=== PATIENT | male | born 1955 | race Caucasian/White ===

== ENCOUNTER 2017-05-15 11:16 | Day surgery (SDC) | payer MEDICAID, SELFPAY ==
--- NOTE | 2017-05-15 06:39 | RAD_ITS ---
STUDY: X-RAY - CERVICAL SPINE REASON FOR EXAM: Male, 61 years old. Facet injection C3, C6 TECHNIQUE: 2 intraoperative AP views view(s) of the cervical spine were obtained. COMPARISON: None FINDINGS: Intraoperative localization of C3 and C6 during facet block injection. Total fluoroscopy time was 3.67 seconds RAD/Cerv Spine 2 or 3 Views IMPRESSION: Intraoperative localization during facet injection C3 and C6 Electronically Signed: Cory Villegas MD, FACR at 8:22 EDT , Service support ,
[2017-05-15 11:35] VITALS: BP 141/83; PULSE 76; RESP 18; TEMP 36.4; O2SAT 99; BMI 34.9
[2017-05-15] MEDS: Triamcinolone Acetonide 40 MG/ML Vial (15:02)
[2017-05-15] MEDS: Bupivacaine 0.25% 30 ML Vial (15:02)
[2017-05-15 15:08] VITALS: BP 141/83; PULSE 68; RESP 16; TEMP 36.4; O2SAT 100
[2017-05-15 15:14] VITALS: BP 139/92; BP 141/83; PULSE 65; RESP 16; O2SAT 97
[2017-05-15 15:20] VITALS: BP 141/83; BP 155/94; PULSE 60; RESP 16; O2SAT 95
[2017-05-15 15:24] VITALS: BP 141/83; BP 157/94; PULSE 65; RESP 16; TEMP 36.7; O2SAT 96
[2017-05-15 15:44] VITALS: BP 141/83
== END 2017-05-15 15:45 | disposition home or self-care (01) ==
PROVIDERS: Family Provider Family Medicine; PCP Family Medicine; Visit Provider Anesthesiology Pain Medicine
DX: M47.812 Spondylosis without myelopathy or radiculopathy, cervical region (principal); M51.16 Intervertebral disc disorders with radiculopathy, lumbar region; M51.17 Intervertebral disc disorders with radiculopathy, lumbosacral region; E11.9 Type 2 diabetes mellitus without complications; I10 Essential (primary) hypertension; Z79.84 Long term (current) use of oral hypoglycemic drugs; Z79.899 Other long term (current) drug therapy; Z87.891 Personal history of nicotine dependence
CPT/HCPCS: 64491; 64492; 64490; 72040; J7120

== ENCOUNTER 2017-11-20 09:00 | Outpatient (RCR) | payer MEDICAID, SELFPAY ==
[2017-11-06 09:32] VITALS: BP 163/94; PULSE 73; RESP 18; TEMP 36.6; BMI 37.2
--- NOTE | 2017-11-06 12:28 | PCM.WC.HP ---
(1) Ulcer of right lower leg Status: Acute Current Visit: Yes Code(s): L97.919 - Non-pressure chronic ulcer of unspecified part of right lower leg with unspecified severity (2) Skin graft (allograft) (autograft) infection Status: Acute Current Visit: Yes Code(s): T86.822 - Skin graft (allograft) (autograft) infection History of Present Illness Date of Service: 11/06/17 Chief Complaint: Follow-up ulcer back of right knee History of Wound: 62-year-old white male patient of Dr. Townsend whom referred to us for an ulcer on the back of the right lateral knee. 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 He has been treating on his own with [id number] medication and not healing Past Medical History Past Medical History: Skin grafts lower body Allergies/Adverse Reactions: Allergies No Known Allergies Allergy (Verified 11/06/17 10:06) Home Medications: Ambulatory Orders Medication Instructions Recorded Meloxicam [Mobic] 15 mg PO DAILY 11/26/13 Fenofibrate,Micronized 160 mg PO DAILY 05/13/17 [Fenofibrate] Lisinopril [Prinivil] 10 mg PO DAILY 05/13/17 Metformin HCl 1,000 mg PO BID 05/13/17 Pioglitazone [Actos] 30 mg PO DAILY 05/13/17 Atorvastatin Calcium [Lipitor] 80 mg PO QHS 11/06/17 Cetirizine HCl [Zyrtec] 10 mg PO DAILY 11/06/17 Fluticasone 0.05% [Flonase Nasal 2 spray NASAL DAILY PRN 11/06/17 [place]] Joseph-3 Fatty Acids/Fish Oil [Fish 1 each PO DAILY 11/06/17 Oil 1,000 mg Capsule] Lives: Spouse/ Significant Other Smoking Status: Former smoker Tobacco Use: Non-smoker Alcohol: None Drugs: None Review of Systems Constitutional: Denies: Chills, Fever Eyes: Denies: Blurred vision, Drainage, Pain HEENT: Denies: Difficulty Hearing, Difficulty Swallowing, Sore Throat, Visual Changes Cardiovascular: Denies: Chest Pain, Palpitations, Syncope Respiratory: Denies: Cough, Shortness of Breath Gastrointestinal: Denies: Abdominal Pain, Nausea, Vomiting Genitourinary: Denies: Dysuria, Frequency Musculoskeletal: Denies: Joint Pain, Muscle pain Skin: Reports: - - Ulcer right lateral knee. Denies: Jaundice, Rash Neurological: Denies: Balance problems, Change in Speech, Difficulty swallowing, Focal weakness Psychiatric: Denies: Anxiety, Depression Endocrine: Denies: Change in Body Habitus Hematologic/ Lymphatic: Denies: Adenopathy - Physical Exam Vital Signs Temp Pulse Resp BP 98 F 73 18 163/94 H 11/06/17 09:32 11/06/17 09:32 11/06/17 09:32 11/06/17 09:32 General: Oriented x3, Cooperative, Well developed HEENT: Atraumatic, PERRLA Oral: Moist Mucosa Neck: Supple, No JVD Lungs: Clear to auscultation, Normal air movement Cardiovascular: Regular rate, Regular Rhythm Abdomen: Bowel Sounds Present, Soft, Non Tender, No Hepato-splenomegaly Extremities: No clubbing, No edema, - - Ulcer right lateral knee Wound Measurements and Assessment WC - Nurse 1 - General Ulcer Measurement Start: 11/06/17 09:29 Freq: Status: Active Protocol: Activity Type Activity Date Activity User E-Sign Co-Sign Detail Recorded Client Recorded Date Recorded By Document 11/06/17 09:32 [facility] [id number] 11/06/17 09:57 [facility] 11/06/17 09:32 Wound Center Nurse 1 [Ulcer Assessment Protocol: WC.WD.LOC] #1- RT POST KNEE -Combined with other wound No -Current Size (cm) - Length 1.4 -Current Size (cm) - Width 1.9 -Current Size (cm) - Depth 0.2 -Total Square Cm 2.66 -Date of Last Picture (Recall this 11/06/17 field) -Photo Taken Yes -Epithelialization None Present -Tunneling No -Undermining/Tunneling No -Exudate Amt None Present (0 %) -Wound Margin Thickened & Rolled Under -Granulation Amt Medium (34-66%) -Granulation Quality Red -Slough/Fibrin Yes -Necrosis Amt Small (1-33%) -Necrotic Tissue Type Adherent Slough -Structure Exposed N/A -Texture ([place]aya-wound Skin Appearance) Scarring -Moisture ([place]-wound Skin Appearance Assessed ) -Color ([place]-wound Skin Appearance) Erythema -Temperature ([place]-wound Skin No Abnormality Appearance) (Pt Warm) -Tenderness on Palpation ([place]-wound Yes Skin Appearance) -Ulcer Cleansing Rinsed/ Irrigated with Saline -Foul Odor after Cleansing No -Anesthetic Used 5% Lidocaine Gel [Edema Assessment] -Lower Limb Edema Present Yes -Right Calf (cm) 41 -Right Ankle (cm) 25.5 -Left Calf (cm) 43.2 -Left Ankle (cm) 24.9 WC - Nurse 2 - General Ulcer CM Notes Start: 11/06/17 09:29 Freq: Status: Active Protocol: Activity Type Activity Date Activity User E-Sign Co-Sign Detail Recorded Client Recorded Date Recorded By Document 11/06/17 10:43 MW [id number] 11/06/17 10:48 MW 11/06/17 10:43 Wound Center Nurse 2 [Procedure/Treatment] #1- RT POST KNEE -Time 10:46 -Correct Patient Yes -Correct Side, Site, Position Yes -Correct Procedure Yes -Procedure Performed Yes -Type of Procedure Debridement -Clinical Debridement Subcutaneous -Post Debridement Size (cm) - Length 1.5 -Post Debridement Size (cm) - Width 2.0 -Post Debridement Size (cm) - Depth 0.2 -Total Square Cm 3.00 -Wound/Ulcer Outcome Not Healed -Ulcer Cleansing Rinsed/ Irrigated with Saline -Foul Odor after Cleansing No -Bioengineered Tissue No -Bleeding Controlled with Pressure -Treatment Response Procedure Tolerated Well [See Physician Procedure note for Specifics] Pain Scale: 0-10 Numeric [Pain] -Is Patient Pain Free? Yes Musculoskeletal: No Tenderness to Palpation of Joints or Extremities Lymphatic: No Cervical, Supraclavicular, or Inguinal Adenopathy Neurological: Cranial nerves II-XII grossly intact, Neuro grossly intact Psych/Mental Status: Normal Affect, Appropriate, Alert and oriented to time, place, person, mood and affect Debridement Note Post-Debridement Measurements/Treatment WC - Nurse 2 - General Ulcer CM Notes Start: 11/06/17 09:29 Freq: Status: Active Protocol: Activity Type Activity Date Activity User E-Sign Co-Sign Detail Recorded Client Recorded Date Recorded By Document 11/06/17 10:43 MW [id number] 11/06/17 10:48 MW 11/06/17 10:43 Wound Center Nurse 2 #1- RT POST KNEE -Time 10:46 -Correct Patient Yes -Correct Side, Site, Position Yes -Correct Procedure Yes -Procedure Performed Yes -Type of Procedure Debridement -Clinical Debridement Subcutaneous -Post Debridement Size (cm) - Length 1.5 -Post Debridement Size (cm) - Width 2.0 -Post Debridement Size (cm) - Depth 0.2 -Total Square Cm 3.00 -Wound/Ulcer Outcome Not Healed -Ulcer Cleansing Rinsed/ Irrigated with Saline -Foul Odor after Cleansing No -Bioengineered Tissue No -Bleeding Controlled with Pressure -Treatment Response Procedure Tolerated Well Pain Scale: 0-10 Numeric Is Patient Pain Free? Yes Wound debrided: Knee ulcer Type of Debridement: Excisional debridement Anesthesia Used: 5% Lidocaine Gel Depth: Down to and including healthy tissue, in the subcutaneous layer Percentage of wound debrided: 100 Instrument Used: 5mm curette Tissue Removed: Slough and fibrin Severity: Limited To Skin Breakdown Amount of bleeding with debridement: Mild Bleeding Controlled with: Compression and gauze Patient tolerated procedure well Assessment/Plan Active Problems Ulcer of right lower leg (Acute) Skin graft (allograft) (autograft) infection (Acute) Assessment: Nonhealing ulcer posterior right knee. Diabetes type 2. Old healed skin grafts extremities Plan: Right leg and knee area with Hibiclens. Apply Liv moistened Adaptic gauze and dressing
--- NOTE | 2017-11-06 12:39 | HP.PCM_ITS ---
(1) Ulcer of right lower leg Status: Acute Current Visit: Yes Code(s): L97.919 - Non-pressure chronic ulcer of unspecified part of right lower leg with unspecified severity (2) Skin graft (allograft) (autograft) infection Status: Acute Current Visit: Yes Code(s): T86.822 - Skin graft (allograft) ( autograft) infection History of Present Illness Date of Service: 11/06/17 Chief Complaint: Follow-up ulcer back of right knee History of Wound: 62-year-old white male patient of Dr. Townsend whom referred to us for an ulcer on the back of the right lateral knee. Patient has had third- degree dempsey with grafting done in 1967 his total lower body and has scar tissue everywhere and developed an open ulcer on the right lateral posterior knee due to trauma. He has been treating on his own with oeyr-[id number] medication and not healing Past Medical History Past Medical History: Skin grafts lower body Allergies/Adverse Reactions: Allergies No Known Allergies Allergy (Verified 11/06/17 10:06) Home Medications: Ambulatory Orders Medication Instructions Recorded Meloxicam [Mobic] 15 mg PO DAILY 11/26/13 Fenofibrate,Micronized 160 mg PO DAILY 05/13/17 [Fenofibrate] Lisinopril [Prinivil] 10 mg PO DAILY 05/13/17 Metformin HCl 1,000 mg PO BID 05/13/17 Pioglitazone [Actos] 30 mg PO DAILY 05/13/17 Atorvastatin Calcium [Lipitor] 80 mg PO QHS 11/06/17 Cetirizine HCl [Zyrtec] 10 mg PO DAILY 11/06/17 Fluticasone 0.05% [Flonase Nasal 2 spray NASAL DAILY PRN 11/06/17 [place]] Milo-3 Fatty Acids/Fish Oil [Fish 1 each PO DAILY 11/06/17 Oil 1,000 mg Capsule] Lives: Spouse/ Significant Other Smoking Status: Former smoker Tobacco Use: Non-smoker Alcohol: None Drugs: None Review of Systems Constitutional: Denies: Chills, Fever Eyes: Denies: Blurred vision, Drainage, Pain HEENT: Denies: Difficulty Hearing, Difficulty Swallowing, Sore Throat, Visual Changes Cardiovascular: Denies: Chest Pain, Palpitations, Syncope Respiratory: Denies: Cough, Shortness of Breath Gastrointestinal: Denies: Abdominal Pain, Nausea, Vomiting Genitourinary: Denies: Dysuria, Frequency Musculoskeletal: Denies: Joint Pain, Muscle pain Skin: Reports: - - Ulcer right lateral knee. Denies: Jaundice, Rash Neurological: Denies: Balance problems, Change in Speech, Difficulty swallowing , Focal weakness Psychiatric: Denies: Anxiety, Depression Endocrine: Denies: Change in Body Habitus Hematologic/ Lymphatic: Denies: Adenopathy - Physical Exam Vital Signs Temp Pulse Resp BP 98 F 73 18 163/94 H 11/06/17 09:32 11/06/17 09:32 11/06/17 09:32 11/06/17 09:32 General: Oriented x3, Cooperative, Well developed HEENT: Atraumatic, PERRLA Oral: Moist Mucosa Neck: Supple, No JVD Lungs: Clear to auscultation, Normal air movement Cardiovascular: Regular rate, Regular Rhythm Abdomen: Bowel Sounds Present, Soft, Non Tender, No Hepato-splenomegaly Extremities: No clubbing, No edema, - - Ulcer right lateral knee Wound Measurements and Assessment WC - Nurse 1 - General Ulcer Measurement Start: 11/06/17 09:29 Freq: Status: Active Protocol: Activity Type Activity Date Activity User E-Sign Co-Sign Detail Recorded Client Recorded Date Recorded By Document 11/06/17 09:32 [facility] [id number] 11/06/17 09:57 [facility] 11/06/17 09:32 Wound Center Nurse 1 [Ulcer Assessment Protocol: WC.WD.LOC] #1- RT POST KNEE -Combined with other wound No -Current Size (cm) - Length 1.4 -Current Size (cm) - Width 1.9 -Current Size (cm) - Depth 0.2 -Total Square Cm 2.66 -Date of Last Picture (Recall this 11/06/17 field) -Photo Taken Yes -Epithelialization None Present -Tunneling No -Undermining/Tunneling No -Exudate Amt None Present (0 %) -Wound Margin Thickened & Rolled Under -Granulation Amt Medium (34-66%) -Granulation Quality Red -Slough/Fibrin Yes -Necrosis Amt Small (1-33%) -Necrotic Tissue Type Adherent Slough -Structure Exposed N/A -Texture ([place]-wound Skin Appearance) Scarring -Moisture ([place]-wound Skin Appearance Assessed ) -Color ([place]-wound Skin Appearance) Erythema -Temperature ([place]-wound Skin No Abnormality Appearance) (Pt Warm) -Tenderness on Palpation ([place]-wound Yes Skin Appearance) -Ulcer Cleansing Rinsed/ Irrigated with Saline -Foul Odor after Cleansing No -Anesthetic Used 5% Lidocaine Gel [Edema Assessment] -Lower Limb Edema Present Yes -Right Calf (cm) 41 -Right Ankle (cm) 25.5 -Left Calf (cm) 43.2 -Left Ankle (cm) 24.9 WC - Nurse 2 - General Ulcer CM Notes Start: 11/06/17 09:29 Freq: Status: Active Protocol: Activity Type Activity Date Activity User E-Sign Co-Sign Detail Recorded Client Recorded Date Recorded By Document 11/06/17 10:43 MW [id number] 11/06/17 10:48 MW 11/06/17 10:43 Wound Center Nurse 2 [Procedure/Treatment] #1- RT POST KNEE -Time 10:46 -Correct Patient Yes -Correct Side, Site, Position Yes -Correct Procedure Yes -Procedure Performed Yes -Type of Procedure Debridement -Clinical Debridement Subcutaneous -Post Debridement Size (cm) - Length 1.5 -Post Debridement Size (cm) - Width 2.0 -Post Debridement Size (cm) - Depth 0.2 -Total Square Cm 3.00 -Wound/Ulcer Outcome Not Healed -Ulcer Cleansing Rinsed/ Irrigated with Saline -Foul Odor after Cleansing No -Bioengineered Tissue No -Bleeding Controlled with Pressure -Treatment Response Procedure Tolerated Well [See Physician Procedure note for Specifics] Pain Scale: 0-10 Numeric [Pain] -Is Patient Pain Free? Yes Musculoskeletal: No Tenderness to Palpation of Joints or Extremities Lymphatic: No Cervical, Supraclavicular, or Inguinal Adenopathy Neurological: Cranial nerves II-XII grossly intact, Neuro grossly intact Psych/Mental Status: Normal Affect, Appropriate, Alert and oriented to time, place, person, mood and affect Debridement Note Post-Debridement Measurements/Treatment WC - Nurse 2 - General Ulcer CM Notes Start: 11/06/17 09:29 Freq: Status: Active Protocol: Activity Type Activity Date Activity User E-Sign Co-Sign Detail Recorded Client Recorded Date Recorded By Document 11/06/17 10:43 MW [id number] 11/06/17 10:48 MW 11/06/17 10:43 Wound Center Nurse 2 #1- RT POST KNEE -Time 10:46 -Correct Patient Yes -Correct Side, Site, Position Yes -Correct Procedure Yes -Procedure Performed Yes -Type of Procedure Debridement -Clinical Debridement Subcutaneous -Post Debridement Size (cm) - Length 1.5 -Post Debridement Size (cm) - Width 2.0 -Post Debridement Size (cm) - Depth 0.2 -Total Square Cm 3.00 -Wound/Ulcer Outcome Not Healed -Ulcer Cleansing Rinsed/ Irrigated with Saline -Foul Odor after Cleansing No -Bioengineered Tissue No -Bleeding Controlled with Pressure -Treatment Response Procedure Tolerated Well Pain Scale: 0-10 Numeric Is Patient Pain Free? Yes Wound debrided: Knee ulcer Type of Debridement: Excisional debridement Anesthesia Used: 5% Lidocaine Gel Depth: Down to and including healthy tissue, in the subcutaneous layer Percentage of wound debrided: 100 Instrument Used: 5mm curette Tissue Removed: Slough and fibrin Severity: Limited To Skin Breakdown Amount of bleeding with debridement: Mild Bleeding Controlled with: Compression and gauze Patient tolerated procedure well Assessment/Plan Active Problems Ulcer of right lower leg (Acute) Skin graft (allograft) (autograft) infection (Acute) Assessment: Nonhealing ulcer posterior right knee. Diabetes type 2. Old healed skin grafts extremities Plan: Right leg and knee area with Hibiclens. Apply Liv moistened Adaptic gauze and dressing
[2017-11-13 09:44] VITALS: BP 142/85; PULSE 78; RESP 18; TEMP 36.8; BMI 37.2
--- NOTE | 2017-11-13 10:05 | PCM.WC.PN ---
(1) Ulcer of right lower leg Status: Acute Current Visit: Yes Code(s): L97.919 - Non-pressure chronic ulcer of unspecified part of right lower leg with unspecified severity (2) Skin graft (allograft) (autograft) infection Status: Acute Current Visit: Yes Code(s): T86.822 - Skin graft (allograft) (autograft) infection Type of Wound Date of Service: 11/13/17 Chief Complaint: Follow-up ulcer back of right knee History of Wound: 62-year-old white male patient of Dr. Townsend whom referred to us for an ulcer on the back of the right lateral knee. Patient has had third-degree dempsey with grafting done in 1968 his total lower body and has scar tissue everywhere and developed an open ulcer on the right lateral posterior knee due to trauma. He has been treating on his own with asjf-umz-viufpop medication and not healing Progress of Wound: Cultures of the ulcer came back positive for MRSA patient was started on Bactrim and has started 2 doses. Ulcer is slightly smaller clean. We will continue using the Promogran and follow-up in a week - Physical Exam Vital Signs Temp Pulse Resp BP 98.2 F 78 18 142/85 H 11/13/17 09:44 11/13/17 09:44 11/13/17 09:44 11/13/17 09:44 General: Oriented x3, Cooperative, Well developed HEENT: Atraumatic, PERRLA Oral: Moist Mucosa Neck: Supple, No JVD Lungs: Clear to auscultation, Normal air movement Cardiovascular: Regular rate, Regular Rhythm Abdomen: Bowel Sounds Present, Soft, Non Tender, No Hepato-splenomegaly Extremities: No clubbing, No edema, - - Right posterior knee ulcer Skin: Ulcer/ Wound Wound Measurements and Assessment WC - Nurse 1 - General Ulcer Measurement Start: 11/06/17 09:29 Freq: Status: Active Protocol: Activity Type Activity Date Activity User E-Sign Co-Sign Detail Recorded Client Recorded Date Recorded By Document 11/13/17 09:44 [id number] 11/13/17 09:47 11/13/17 09:44 Wound Center Nurse 1 [Ulcer Assessment] #1- RT POST KNEE -Combined with other wound No -Current Size (cm) - Length 2.1 -Current Size (cm) - Width 1.7 -Current Size (cm) - Depth 0.1 -Total Square Cm 3.57 -Photo Taken No -Epithelialization Small 1-33% -Tunneling No -Undermining/Tunneling No -Circular Undermining No -Classification - Thickness Full Thickness without Exposed Support Structure -Exudate Amt Small (1-33%) -Exudate Type Serosanguineous -Wound Margin Distinct, Outline Attached -Granulation Amt Large (67-100%) -Granulation Quality Hailey -Slough/Fibrin Yes -Necrosis Amt Small (1-33%) -Necrotic Tissue Type Adherent Slough -Structure Exposed Fascia Fat Layer Exposed -Texture ([place]-wound Skin Appearance) Localized Edema Scarring -Moisture ([place]-wound Skin Appearance No Abnormality ) -Color ([place]-wound Skin Appearance) Erythema -Temperature ([place]-wound Skin No Abnormality Appearance) (Pt Warm) -Tenderness on Palpation ([place]-wound No Skin Appearance) -Ulcer Cleansing Rinsed/ Irrigated with Saline -Foul Odor after Cleansing No -Anesthetic Used 5% Lidocaine Gel [Edema Assessment] -Lower Limb Edema Present Yes -Right Calf (cm) 40.0 -Right Ankle (cm) 24.5 WC - Nurse 2 - General Ulcer CM Notes Start: 11/06/17 09:29 Freq: Status: Active Protocol: Activity Type Activity Date Activity User E-Sign Co-Sign Detail Recorded Client Recorded Date Recorded By Document 11/13/17 10:00 MW [id number] 11/13/17 10:02 MW 11/13/17 10:00 Wound Center Nurse 2 [Procedure/Treatment] #1- RT POST KNEE -Time 10:00 -Correct Patient Yes -Correct Side, Site, Position Yes -Correct Procedure Yes -Procedure Performed Yes -Type of Procedure Debridement -Clinical Debridement Subcutaneous -Post Debridement Size (cm) - Length 1.4 -Post Debridement Size (cm) - Width 1.5 -Post Debridement Size (cm) - Depth 0.2 -Total Square Cm 2.10 -Wound/Ulcer Outcome Not Healed -Ulcer Cleansing Rinsed/ Irrigated with Saline -Foul Odor after Cleansing No -Bioengineered Tissue No -Bleeding Controlled with Pressure -Treatment Response Procedure Tolerated Well [See Physician Procedure note for Specifics] Pain Scale: 0-10 Numeric [Pain] -Is Patient Pain Free? Yes Musculoskeletal: No Tenderness to Palpation of Joints or Extremities Lymphatic: No Cervical, Supraclavicular, or Inguinal Adenopathy Neurological: Cranial nerves II-XII grossly intact, Neuro grossly intact Psych/Mental Status: Normal Affect, Appropriate, Alert and oriented to time, place, person, mood and affect Debridement Note Post-Debridement Measurements/Treatment WC - Nurse 2 - General Ulcer CM Notes Start: 11/06/17 09:29 Freq: Status: Active Protocol: Activity Type Activity Date Activity User E-Sign Co-Sign Detail Recorded Client Recorded Date Recorded By Document 11/06/17 10:43 MW [id number] 11/06/17 10:48 MW Document 11/13/17 10:00 MW [id number] 11/13/17 10:02 MW 11/06/17 11/13/17 10:43 10:00 Wound Center Nurse 2 #1- RT POST KNEE -Time 10:46 10:00 -Correct Patient Yes Yes -Correct Side, Site, Position Yes Yes -Correct Procedure Yes Yes -Procedure Performed Yes Yes -Type of Procedure Debridement Debridement -Clinical Debridement Subcutaneous Subcutaneous -Post Debridement Size (cm) - Length 1.5 1.4 -Post Debridement Size (cm) - Width 2.0 1.5 -Post Debridement Size (cm) - Depth 0.2 0.2 -Total Square Cm 3.00 2.10 -Wound/Ulcer Outcome Not Healed Not Healed -Ulcer Cleansing Rinsed/ Rinsed/ Irrigated with Irrigated with Saline Saline -Foul Odor after Cleansing No No -Bioengineered Tissue No No -Bleeding Controlled with Pressure Pressure -Treatment Response Procedure Procedure Tolerated Well Tolerated Well Pain Scale: 0-10 Numeric Is Patient Pain Free? Yes Yes Wound debrided: Posterior knee ulcer Type of Debridement: Excisional debridement Anesthesia Used: 5% Lidocaine Gel Depth: Down to and including healthy tissue, in the subcutaneous layer Instrument Used: 5mm curette Tissue Removed: Fibrin Severity: Limited To Skin Breakdown Amount of bleeding with debridement: Mild Bleeding Controlled with: Compression and gauze Assessment/Plan Active Problems Ulcer of right lower leg (Acute) Skin graft (allograft) (autograft) infection (Acute) Assessment: Nonhealing ulcer posterior right knee. Diabetes type 2. Old healed skin grafts extremities Plan: Right leg and knee area with Hibiclens. Apply Liv moistened Adaptic gauze and dressing. Follow up 1 week
--- NOTE | 2017-11-13 10:08 | PN.PCM_ITS ---
(1) Ulcer of right lower leg Status: Acute Current Visit: Yes Code(s): L97.919 - Non-pressure chronic ulcer of unspecified part of right lower leg with unspecified severity (2) Skin graft (allograft) (autograft) infection Status: Acute Current Visit: Yes Code(s): T86.822 - Skin graft (allograft) ( autograft) infection Type of Wound Date of Service: 11/13/17 Chief Complaint: Follow-up ulcer back of right knee History of Wound: 62-year-old white male patient of Dr. Townsend whom referred to us for an ulcer on the back of the right lateral knee. Patient has had third- degree dempsey with grafting done in 1968 his total lower body and has scar tissue everywhere and developed an open ulcer on the right lateral posterior knee due to trauma. He has been treating on his own with [id number] medication and not healing Progress of Wound: Cultures of the ulcer came back positive for MRSA patient was started on Bactrim and has started 2 doses. Ulcer is slightly smaller clean. We will continue using the Promogran and follow-up in a week - Physical Exam Vital Signs Temp Pulse Resp BP 98.2 F 78 18 142/85 H 11/13/17 09:44 11/13/17 09:44 11/13/17 09:44 11/13/17 09:44 General: Oriented x3, Cooperative, Well developed HEENT: Atraumatic, PERRLA Oral: Moist Mucosa Neck: Supple, No JVD Lungs: Clear to auscultation, Normal air movement Cardiovascular: Regular rate, Regular Rhythm Abdomen: Bowel Sounds Present, Soft, Non Tender, No Hepato-splenomegaly Extremities: No clubbing, No edema, - - Right posterior knee ulcer Skin: Ulcer/ Wound Wound Measurements and Assessment WC - Nurse 1 - General Ulcer Measurement Start: 11/06/17 09:29 Freq: Status: Active Protocol: Activity Type Activity Date Activity User E-Sign Co-Sign Detail Recorded Client Recorded Date Recorded By Document 11/13/17 09:44 [id number] 11/13/17 09:47 11/13/17 09:44 Wound Center Nurse 1 [Ulcer Assessment] #1- RT POST KNEE -Combined with other wound No -Current Size (cm) - Length 2.1 -Current Size (cm) - Width 1.7 -Current Size (cm) - Depth 0.1 -Total Square Cm 3.57 -Photo Taken No -Epithelialization Small 1-33% -Tunneling No -Undermining/Tunneling No -Circular Undermining No -Classification - Thickness Full Thickness without Exposed Support Structure -Exudate Amt Small (1-33%) -Exudate Type Serosanguineous -Wound Margin Distinct, Outline Attached -Granulation Amt Large (67-100%) -Granulation Quality [place] -Slough/Fibrin Yes -Necrosis Amt Small (1-33%) -Necrotic Tissue Type Adherent Slough -Structure Exposed Fascia Fat Layer Exposed -Texture ([place]-wound Skin Appearance) Localized Edema Scarring -Moisture ([place]-wound Skin Appearance No Abnormality ) -Color ([place]-wound Skin Appearance) Erythema -Temperature ([place]-wound Skin No Abnormality Appearance) (Pt Warm) -Tenderness on Palpation ([place]-wound No Skin Appearance) -Ulcer Cleansing Rinsed/ Irrigated with Saline -Foul Odor after Cleansing No -Anesthetic Used 5% Lidocaine Gel [Edema Assessment] -Lower Limb Edema Present Yes -Right Calf (cm) 40.0 -Right Ankle (cm) 24.5 WC - Nurse 2 - General Ulcer CM Notes Start: 11/06/17 09:29 Freq: Status: Active Protocol: Activity Type Activity Date Activity User E-Sign Co-Sign Detail Recorded Client Recorded Date Recorded By Document 11/13/17 10:00 MW [id number] 11/13/17 10:02 MW 11/13/17 10:00 Wound Center Nurse 2 [Procedure/Treatment] #1- RT POST KNEE -Time 10:00 -Correct Patient Yes -Correct Side, Site, Position Yes -Correct Procedure Yes -Procedure Performed Yes -Type of Procedure Debridement -Clinical Debridement Subcutaneous -Post Debridement Size (cm) - Length 1.4 -Post Debridement Size (cm) - Width 1.5 -Post Debridement Size (cm) - Depth 0.2 -Total Square Cm 2.10 -Wound/Ulcer Outcome Not Healed -Ulcer Cleansing Rinsed/ Irrigated with Saline -Foul Odor after Cleansing No -Bioengineered Tissue No -Bleeding Controlled with Pressure -Treatment Response Procedure Tolerated Well [See Physician Procedure note for Specifics] Pain Scale: 0-10 Numeric [Pain] -Is Patient Pain Free? Yes Musculoskeletal: No Tenderness to Palpation of Joints or Extremities Lymphatic: No Cervical, Supraclavicular, or Inguinal Adenopathy Neurological: Cranial nerves II-XII grossly intact, Neuro grossly intact Psych/Mental Status: Normal Affect, Appropriate, Alert and oriented to time, place, person, mood and affect Debridement Note Post-Debridement Measurements/Treatment WC - Nurse 2 - General Ulcer CM Notes Start: 11/06/17 09:29 Freq: Status: Active Protocol: Activity Type Activity Date Activity User E-Sign Co-Sign Detail Recorded Client Recorded Date Recorded By Document 11/06/17 10:43 MW [id number] 11/06/17 10:48 MW Document 11/13/17 10:00 MW [id number] 11/13/17 10:02 MW 11/06/17 11/13/17 10:43 10:00 Wound Center Nurse 2 #1- RT POST KNEE -Time 10:46 10:00 -Correct Patient Yes Yes -Correct Side, Site, Position Yes Yes -Correct Procedure Yes Yes -Procedure Performed Yes Yes -Type of Procedure Debridement Debridement -Clinical Debridement Subcutaneous Subcutaneous -Post Debridement Size (cm) - Length 1.5 1.4 -Post Debridement Size (cm) - Width 2.0 1.5 -Post Debridement Size (cm) - Depth 0.2 0.2 -Total Square Cm 3.00 2.10 -Wound/Ulcer Outcome Not Healed Not Healed -Ulcer Cleansing Rinsed/ Rinsed/ Irrigated with Irrigated with Saline Saline -Foul Odor after Cleansing No No -Bioengineered Tissue No No -Bleeding Controlled with Pressure Pressure -Treatment Response Procedure Procedure Tolerated Well Tolerated Well Pain Scale: 0-10 Numeric Is Patient Pain Free? Yes Yes Wound debrided: Posterior knee ulcer Type of Debridement: Excisional debridement Anesthesia Used: 5% Lidocaine Gel Depth: Down to and including healthy tissue, in the subcutaneous layer Instrument Used: 5mm curette Tissue Removed: Fibrin Severity: Limited To Skin Breakdown Amount of bleeding with debridement: Mild Bleeding Controlled with: Compression and gauze Assessment/Plan Active Problems Ulcer of right lower leg (Acute) Skin graft (allograft) (autograft) infection (Acute) Assessment: Nonhealing ulcer posterior right knee. Diabetes type 2. Old healed skin grafts extremities Plan: Right leg and knee area with Hibiclens. Apply Liv moistened Adaptic gauze and dressing. Follow up 1 week
[2017-11-20 09:03] VITALS: BP 149/79; PULSE 80; RESP 18; TEMP 36.8; BMI 37.2
--- NOTE | 2017-11-20 09:39 | PCM.WC.PN ---
(1) Ulcer of right lower leg Status: Acute Current Visit: Yes Code(s): L97.919 - Non-pressure chronic ulcer of unspecified part of right lower leg with unspecified severity (2) Skin graft (allograft) (autograft) infection Status: Acute Current Visit: Yes Code(s): T86.822 - Skin graft (allograft) (autograft) infection Type of Wound Date of Service: 11/20/17 Chief Complaint: Follow-up ulcer back of right knee History of Wound: 62-year-old white male patient of Dr. Townsend whom referred to us for an ulcer on the back of the right lateral knee. Patient has had third-degree dempsey with grafting done in 1968 his total lower body and has scar tissue everywhere and developed an open ulcer on the right lateral posterior knee due to trauma. He has been treating on his own with [id number] medication and not healing Progress of Wound: Cultures of the ulcer came back positive for MRSA patient was started on Bactrim and has started . Ulcer is slightly larger but clean. We will continue using the Promogran and follow-up in a week. Applying for epi fix to area it is in the scar tissue area and not healing quickly. - Physical Exam Vital Signs Temp Pulse Resp BP 98.2 F 80 18 149/79 H 11/20/17 09:03 11/20/17 09:03 11/20/17 09:03 11/20/17 09:03 General: Oriented x3, Cooperative, Well developed HEENT: Atraumatic, PERRLA Oral: Moist Mucosa Neck: Supple, No JVD Lungs: Clear to auscultation, Normal air movement Cardiovascular: Regular rate, Regular Rhythm Abdomen: Bowel Sounds Present, Soft, Non Tender, No Hepato-splenomegaly Extremities: No clubbing, No edema, - - Posterior knee ulcer Skin: Ulcer/ Wound Wound Measurements and Assessment WC - Nurse 1 - General Ulcer Measurement Start: 11/06/17 09:29 Freq: Status: Active Protocol: Activity Type Activity Date Activity User E-Sign Co-Sign Detail Recorded Client Recorded Date Recorded By Document 11/20/17 09:03 [id number] 11/20/17 09:13 11/20/17 09:03 Wound Center Nurse 1 [Ulcer Assessment] #1- RT POST KNEE -Combined with other wound No -Current Size (cm) - Length 1.4 -Current Size (cm) - Width 2.0 -Current Size (cm) - Depth 0.1 -Total Square Cm 2.80 -Photo Taken No -Epithelialization Small 1-33% -Tunneling No -Undermining/Tunneling No -Circular Undermining No -Classification - Thickness Full Thickness without Exposed Support Structure -Exudate Amt Small (1-33%) -Exudate Type Serosanguineous -Wound Margin Distinct, Outline Attached -Granulation Amt Large (67-100%) -Granulation Quality [place] -Slough/Fibrin Yes -Necrosis Amt Small (1-33%) -Necrotic Tissue Type Adherent Slough -Structure Exposed Fascia Fat Layer Exposed -Texture ([place]-wound Skin Appearance) Friable Localized Edema Scarring -Moisture ([place]-wound Skin Appearance No Abnormality ) -Color ([place]-wound Skin Appearance) Erythema -Temperature ([place]-wound Skin No Abnormality Appearance) (Pt Warm) -Tenderness on Palpation ([place]-wound No Skin Appearance) -Ulcer Cleansing Rinsed/ Irrigated with Saline -Foul Odor after Cleansing No -Anesthetic Used 5% Lidocaine Gel [Edema Assessment] -Lower Limb Edema Present Yes -Right Calf (cm) 40.0 -Right Ankle (cm) 25.0 WC - Nurse 2 - General Ulcer CM Notes Start: 11/06/17 09:29 Freq: Status: Active Protocol: Activity Type Activity Date Activity User E-Sign Co-Sign Detail Recorded Client Recorded Date Recorded By Document 11/20/17 09:17 MW [id number] 11/20/17 09:20 MW 11/20/17 09:17 Wound Center Nurse 2 [Procedure/Treatment] #1- RT POST KNEE -Time 09:18 -Correct Patient Yes -Correct Side, Site, Position Yes -Correct Procedure Yes -Procedure Performed Yes -Type of Procedure Debridement -Clinical Debridement Subcutaneous -Post Debridement Size (cm) - Length 1.5 -Post Debridement Size (cm) - Width 0.6 -Post Debridement Size (cm) - Depth 0.2 -Total Square Cm 0.90 -Wound/Ulcer Outcome Not Healed -Ulcer Cleansing Rinsed/ Irrigated with Saline -Foul Odor after Cleansing No -Bioengineered Tissue No -Bleeding Controlled with Pressure -Treatment Response Procedure Tolerated Well [See Physician Procedure note for Specifics] Pain Scale: 0-10 Numeric [Pain] -Is Patient Pain Free? Yes Musculoskeletal: No Tenderness to Palpation of Joints or Extremities Lymphatic: No Cervical, Supraclavicular, or Inguinal Adenopathy Neurological: Cranial nerves II-XII grossly intact, Neuro grossly intact Psych/Mental Status: Normal Affect, Appropriate, Alert and oriented to time, place, person, mood and affect Debridement Note Post-Debridement Measurements/Treatment WC - Nurse 2 - General Ulcer CM Notes Start: 11/06/17 09:29 Freq: Status: Active Protocol: Activity Type Activity Date Activity User E-Sign Co-Sign Detail Recorded Client Recorded Date Recorded By Document 11/06/17 10:43 MW [id number] 11/06/17 10:48 MW Document 11/13/17 10:00 MW [id number] 11/13/17 10:02 MW Document 11/20/17 09:17 MW [id number] 11/20/17 09:20 MW 11/06/17 11/13/17 11/20/17 10:43 10:00 09:17 Wound Center Nurse 2 #1- RT POST KNEE -Time 10:46 10:00 09:18 -Correct Patient Yes Yes Yes -Correct Side, Site, Position Yes Yes Yes -Correct Procedure Yes Yes Yes -Procedure Performed Yes Yes Yes -Type of Procedure Debridement Debridement Debridement -Clinical Debridement Subcutaneous Subcutaneous Subcutaneous -Post Debridement Size (cm) - Length 1.5 1.4 1.5 -Post Debridement Size (cm) - Width 2.0 1.5 0.6 -Post Debridement Size (cm) - Depth 0.2 0.2 0.2 -Total Square Cm 3.00 2.10 0.90 -Wound/Ulcer Outcome Not Healed Not Healed Not Healed -Ulcer Cleansing Rinsed/ Rinsed/ Rinsed/ Irrigated with Irrigated with Irrigated with Saline Saline Saline -Foul Odor after Cleansing No No No -Bioengineered Tissue No No No -Bleeding Controlled with Pressure Pressure Pressure -Treatment Response Procedure Procedure Procedure Tolerated Well Tolerated Well Tolerated Well Pain Scale: 0-10 Numeric Is Patient Pain Free? Yes Yes Yes Wound debrided: Right posterior knee ulcer Type of Debridement: Excisional debridement Anesthesia Used: 5% Lidocaine Gel Depth: Down to and including healthy tissue, in the subcutaneous layer Percentage of wound debrided: 100 Instrument Used: 5mm curette Tissue Removed: Fibrin Severity: Limited To Skin Breakdown Amount of bleeding with debridement: Mild Bleeding Controlled with: Compression and gauze Patient tolerated procedure well Assessment/Plan Active Problems Ulcer of right lower leg (Acute) Skin graft (allograft) (autograft) infection (Acute) Assessment: Nonhealing ulcer posterior right knee. Diabetes type 2. Old healed skin grafts extremities Plan: Right leg and knee area with Hibiclens. Apply Liv moistened Adaptic gauze and dressing. Follow up 1 week
--- NOTE | 2017-11-20 09:42 | PN.PCM_ITS ---
(1) Ulcer of right lower leg Status: Acute Current Visit: Yes Code(s): L97.919 - Non-pressure chronic ulcer of unspecified part of right lower leg with unspecified severity (2) Skin graft (allograft) (autograft) infection Status: Acute Current Visit: Yes Code(s): T86.822 - Skin graft (allograft) ( autograft) infection Type of Wound Date of Service: 11/20/17 Chief Complaint: Follow-up ulcer back of right knee History of Wound: 62-year-old white male patient of Dr. Townsend whom referred to us for an ulcer on the back of the right lateral knee. Patient has had third- degree dempsey with grafting done in 1968 his total lower body and has scar tissue everywhere and developed an open ulcer on the right lateral posterior knee due to trauma. He has been treating on his own with [id number] medication and not healing Progress of Wound: Cultures of the ulcer came back positive for MRSA patient was started on Bactrim and has started . Ulcer is slightly larger but clean. We will continue using the Promogran and follow-up in a week. Applying for epi fix to area it is in the scar tissue area and not healing quickly. - Physical Exam Vital Signs Temp Pulse Resp BP 98.2 F 80 18 149/79 H 11/20/17 09:03 11/20/17 09:03 11/20/17 09:03 11/20/17 09:03 General: Oriented x3, Cooperative, Well developed HEENT: Atraumatic, PERRLA Oral: Moist Mucosa Neck: Supple, No JVD Lungs: Clear to auscultation, Normal air movement Cardiovascular: Regular rate, Regular Rhythm Abdomen: Bowel Sounds Present, Soft, Non Tender, No Hepato-splenomegaly Extremities: No clubbing, No edema, - - Posterior knee ulcer Skin: Ulcer/ Wound Wound Measurements and Assessment WC - Nurse 1 - General Ulcer Measurement Start: 11/06/17 09:29 Freq: Status: Active Protocol: Activity Type Activity Date Activity User E-Sign Co-Sign Detail Recorded Client Recorded Date Recorded By Document 11/20/17 09:03 [id number] 11/20/17 09:13 11/20/17 09:03 Wound Center Nurse 1 [Ulcer Assessment] #1- RT POST KNEE -Combined with other wound No -Current Size (cm) - Length 1.4 -Current Size (cm) - Width 2.0 -Current Size (cm) - Depth 0.1 -Total Square Cm 2.80 -Photo Taken No -Epithelialization Small 1-33% -Tunneling No -Undermining/Tunneling No -Circular Undermining No -Classification - Thickness Full Thickness without Exposed Support Structure -Exudate Amt Small (1-33%) -Exudate Type Serosanguineous -Wound Margin Distinct, Outline Attached -Granulation Amt Large (67-100%) -Granulation Quality [place] -Slough/Fibrin Yes -Necrosis Amt Small (1-33%) -Necrotic Tissue Type Adherent Slough -Structure Exposed Fascia Fat Layer Exposed -Texture ([place]-wound Skin Appearance) Friable Localized Edema Scarring -Moisture ([place]-wound Skin Appearance No Abnormality ) -Color ([place]-wound Skin Appearance) Erythema -Temperature ([place]-wound Skin No Abnormality Appearance) (Pt Warm) -Tenderness on Palpation ([place]-wound No Skin Appearance) -Ulcer Cleansing Rinsed/ Irrigated with Saline -Foul Odor after Cleansing No -Anesthetic Used 5% Lidocaine Gel [Edema Assessment] -Lower Limb Edema Present Yes -Right Calf (cm) 40.0 -Right Ankle (cm) 25.0 WC - Nurse 2 - General Ulcer CM Notes Start: 11/06/17 09:29 Freq: Status: Active Protocol: Activity Type Activity Date Activity User E-Sign Co-Sign Detail Recorded Client Recorded Date Recorded By Document 11/20/17 09:17 MW [id number] 11/20/17 09:20 MW 11/20/17 09:17 Wound Center Nurse 2 [Procedure/Treatment] #1- RT POST KNEE -Time 09:18 -Correct Patient Yes -Correct Side, Site, Position Yes -Correct Procedure Yes -Procedure Performed Yes -Type of Procedure Debridement -Clinical Debridement Subcutaneous -Post Debridement Size (cm) - Length 1.5 -Post Debridement Size (cm) - Width 0.6 -Post Debridement Size (cm) - Depth 0.2 -Total Square Cm 0.90 -Wound/Ulcer Outcome Not Healed -Ulcer Cleansing Rinsed/ Irrigated with Saline -Foul Odor after Cleansing No -Bioengineered Tissue No -Bleeding Controlled with Pressure -Treatment Response Procedure Tolerated Well [See Physician Procedure note for Specifics] Pain Scale: 0-10 Numeric [Pain] -Is Patient Pain Free? Yes Musculoskeletal: No Tenderness to Palpation of Joints or Extremities Lymphatic: No Cervical, Supraclavicular, or Inguinal Adenopathy Neurological: Cranial nerves II-XII grossly intact, Neuro grossly intact Psych/Mental Status: Normal Affect, Appropriate, Alert and oriented to time, place, person, mood and affect Debridement Note Post-Debridement Measurements/Treatment WC - Nurse 2 - General Ulcer CM Notes Start: 11/06/17 09:29 Freq: Status: Active Protocol: Activity Type Activity Date Activity User E-Sign Co-Sign Detail Recorded Client Recorded Date Recorded By Document 11/06/17 10:43 MW [id number] 11/06/17 10:48 MW Document 11/13/17 10:00 MW [id number] 11/13/17 10:02 MW Document 11/20/17 09:17 MW [id number] 11/20/17 09:20 MW 11/06/17 11/13/17 11/20/17 10:43 10:00 09:17 Wound Center Nurse 2 #1- RT POST KNEE -Time 10:46 10:00 09:18 -Correct Patient Yes Yes Yes -Correct Side, Site, Position Yes Yes Yes -Correct Procedure Yes Yes Yes -Procedure Performed Yes Yes Yes -Type of Procedure Debridement Debridement Debridement -Clinical Debridement Subcutaneous Subcutaneous Subcutaneous -Post Debridement Size (cm) - Length 1.5 1.4 1.5 -Post Debridement Size (cm) - Width 2.0 1.5 0.6 -Post Debridement Size (cm) - Depth 0.2 0.2 0.2 -Total Square Cm 3.00 2.10 0.90 -Wound/Ulcer Outcome Not Healed Not Healed Not Healed -Ulcer Cleansing Rinsed/ Rinsed/ Rinsed/ Irrigated with Irrigated with Irrigated with Saline Saline Saline -Foul Odor after Cleansing No No No -Bioengineered Tissue No No No -Bleeding Controlled with Pressure Pressure Pressure -Treatment Response Procedure Procedure Procedure Tolerated Well Tolerated Well Tolerated Well Pain Scale: 0-10 Numeric Is Patient Pain Free? Yes Yes Yes Wound debrided: Right posterior knee ulcer Type of Debridement: Excisional debridement Anesthesia Used: 5% Lidocaine Gel Depth: Down to and including healthy tissue, in the subcutaneous layer Percentage of wound debrided: 100 Instrument Used: 5mm curette Tissue Removed: Fibrin Severity: Limited To Skin Breakdown Amount of bleeding with debridement: Mild Bleeding Controlled with: Compression and gauze Patient tolerated procedure well Assessment/Plan Active Problems Ulcer of right lower leg (Acute) Skin graft (allograft) (autograft) infection (Acute) Assessment: Nonhealing ulcer posterior right knee. Diabetes type 2. Old healed skin grafts extremities Plan: Right leg and knee area with Hibiclens. Apply Liv moistened Adaptic gauze and dressing. Follow up 1 week
== END 2017-11-25 23:59 ==
LOC: WC 09:00
PROVIDERS: Family Provider Family Medicine; PCP Family Medicine; Visit Provider Nurse Practitioner
DX: T86.822 Skin graft (allograft) (autograft) infection (principal); Z79.899 Other long term (current) drug therapy; Z87.891 Personal history of nicotine dependence; L97.811 Non-pressure chronic ulcer of other part of right lower leg limited to breakdown of skin; E11.622 Type 2 diabetes mellitus with other skin ulcer; B95.62 Methicillin resistant Staphylococcus aureus infection as the cause of diseases classified elsewhere
CPT/HCPCS: 11042; 87070; 87075; 87077; 87186; 87205; 99203; G0463

== ENCOUNTER 2017-12-17 10:15 | Outpatient (RCR) | payer MEDICAID, SELFPAY ==
[2017-11-26 01:07] VITALS: BP 163/94; PULSE 80; RESP 18; TEMP 36.8; BMI 37.2
[2017-11-27 09:09] VITALS: BP 160/87; PULSE 85; RESP 16; TEMP 36.2; BMI 37.2
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
[2017-12-11 09:45] VITALS: BP 159/98; PULSE 73; RESP 18; TEMP 36.1; BMI 37.2
[2017-12-17 09:50] VITALS: BP 146/78; PULSE 90; RESP 18; TEMP 35.8; BMI 37.2
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
== END 2017-12-26 23:59 ==
LOC: WC 10:15
PROVIDERS: Family Provider Family Medicine; PCP Family Medicine; Visit Provider Internal Medicine
DX: T86.822 Skin graft (allograft) (autograft) infection (principal); L97.811 Non-pressure chronic ulcer of other part of right lower leg limited to breakdown of skin; Z87.891 Personal history of nicotine dependence; Z79.899 Other long term (current) drug therapy; E11.622 Type 2 diabetes mellitus with other skin ulcer
CPT/HCPCS: 15271; 99213; Q4131; G0463

== ENCOUNTER 2018-01-21 08:30 | Outpatient (RCR) | payer MEDICAID, SELFPAY ==
[2017-12-27 00:55] VITALS: BP 163/94; PULSE 90; RESP 18; TEMP 35.8; BMI 37.2
[2017-12-31 09:28] VITALS: BP 144/88; PULSE 78; RESP 18; TEMP 35.8; BMI 37.2
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
[2018-01-14 10:11] VITALS: BP 147/86; PULSE 86; RESP 20; TEMP 36.4; BMI 37.2
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
[2018-01-21 08:38] VITALS: BP 165/88; PULSE 75; RESP 20; TEMP 36.2; BMI 37.2
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
== END 2018-01-25 23:59 ==
LOC: WC 08:30
PROVIDERS: Family Provider Family Medicine; PCP Family Medicine; Visit Provider Internal Medicine
DX: T86.822 Skin graft (allograft) (autograft) infection (principal); L97.812 Non-pressure chronic ulcer of other part of right lower leg with fat layer exposed; E11.622 Type 2 diabetes mellitus with other skin ulcer
CPT/HCPCS: 15271; Q4131

== ENCOUNTER 2018-02-18 09:00 | Outpatient (RCR) | payer MEDICAID, SELFPAY ==
[2018-01-26 00:45] VITALS: BP 163/94; PULSE 75; RESP 20; TEMP 36.2; BMI 37.2
[2018-01-28 09:38] VITALS: BP 153/81; PULSE 86; RESP 18; TEMP 37.1; BMI 37.2
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
[2018-02-04 08:38] VITALS: BP 156/91; PULSE 82; RESP 16; TEMP 36.9; BMI 37.2
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
[2018-02-11 09:36] VITALS: BP 162/90; PULSE 91; RESP 18; TEMP 36.6; BMI 37.2
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
[2018-02-18 09:10] VITALS: BP 157/75; PULSE 66; RESP 18; TEMP 35.9; BMI 37.2
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
== END 2018-02-25 23:59 ==
LOC: WC 09:00
PROVIDERS: Family Provider Family Medicine; PCP Family Medicine; Visit Provider Internal Medicine
DX: L97.912 Non-pressure chronic ulcer of unspecified part of right lower leg with fat layer exposed (principal); L97.919 Non-pressure chronic ulcer of unspecified part of right lower leg with unspecified severity; T86.822 Skin graft (allograft) (autograft) infection; E11.9 Type 2 diabetes mellitus without complications
CPT/HCPCS: 11042; 15271; 97597; 99213; Q4131; G0463

== ENCOUNTER 2020-11-20 07:36 | Outpatient (RCR) | payer MEDICARE, MEDICAID, SELFPAY ==
[2020-11-20 08:03] VITALS: BP 112/50; PULSE 81; RESP 20; TEMP 36.1; BMI 34.7
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
== END 2020-11-25 23:59 | disposition home or self-care (01) ==
LOC: WC 07:36
PROVIDERS: PCP Family Medicine; Visit Provider Podiatrist Foot & Ankle Surgery
DX: I83.013 Varicose veins of right lower extremity with ulcer of ankle (principal); L97.313 Non-pressure chronic ulcer of right ankle with necrosis of muscle; E11.9 Type 2 diabetes mellitus without complications; Z79.84 Long term (current) use of oral hypoglycemic drugs; Z79.899 Other long term (current) drug therapy; Z87.891 Personal history of nicotine dependence; L90.5 Scar conditions and fibrosis of skin
CPT/HCPCS: 11043; 99213; G0463

== ENCOUNTER 2020-12-25 09:00 | Outpatient (RCR) | payer MEDICARE, MEDICAID, SELFPAY ==
[2020-11-26 00:40] VITALS: BP 112/50; PULSE 81; RESP 20; TEMP 36.1
[2020-11-27 08:14] VITALS: BP 122/70; PULSE 85; RESP 20; TEMP 36; BMI 34.7
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
[2020-12-04 07:55] VITALS: BP 132/67; PULSE 87; RESP 16; TEMP 35.9; BMI 34.7
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
[2020-12-11 08:03] VITALS: BP 152/74; PULSE 84; RESP 18; TEMP 35.9; BMI 34.7
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
[2020-12-18 08:09] VITALS: BP 133/78; PULSE 78; RESP 18; TEMP 36; BMI 34.7
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
[2020-12-25 09:16] VITALS: BP 153/79; PULSE 90; RESP 20; TEMP 36.7; BMI 34.7
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
== END 2020-12-26 23:59 ==
LOC: WC 09:00
PROVIDERS: PCP Family Medicine; Visit Provider Podiatrist Foot & Ankle Surgery
DX: I83.013 Varicose veins of right lower extremity with ulcer of ankle (principal); L97.314 Non-pressure chronic ulcer of right ankle with necrosis of bone; L97.313 Non-pressure chronic ulcer of right ankle with necrosis of muscle; L90.5 Scar conditions and fibrosis of skin; R60.0 Localized edema; E11.621 Type 2 diabetes mellitus with foot ulcer; M86.171 Other acute osteomyelitis, right ankle and foot; E11.69 Type 2 diabetes mellitus with other specified complication
CPT/HCPCS: 11042; 11043; 15271; Q4121

== ENCOUNTER 2021-01-22 08:00 | Outpatient (RCR) | payer MEDICARE, MEDICAID, SELFPAY ==
[2020-12-27 00:46] VITALS: BP 153/79; PULSE 90; RESP 20; TEMP 36.7
[2021-01-01 08:27] VITALS: BP 146/77; PULSE 90; RESP 20; TEMP 35.5; BMI 34.7
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
[2021-01-08 08:14] VITALS: BP 153/83; PULSE 76; RESP 18; TEMP 36.2; BMI 34.7
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
[2021-01-15 08:04] VITALS: BP 152/70; PULSE 103; RESP 16; TEMP 35.4; BMI 34.7
--- NOTE | 2021-01-15 08:08 | WC ---
asia left intact
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
[2021-01-22 08:42] VITALS: BP 156/75; PULSE 86; RESP 16; TEMP 36.3; BMI 34.7
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
== END 2021-01-25 23:59 ==
LOC: WC 08:00
PROVIDERS: PCP Family Medicine; Visit Provider Podiatrist Foot & Ankle Surgery
DX: E11.621 Type 2 diabetes mellitus with foot ulcer (principal); L97.312 Non-pressure chronic ulcer of right ankle with fat layer exposed; E11.69 Type 2 diabetes mellitus with other specified complication; M86.171 Other acute osteomyelitis, right ankle and foot; L97.313 Non-pressure chronic ulcer of right ankle with necrosis of muscle
CPT/HCPCS: 15271; 99213; Q4121; G0463

== ENCOUNTER 2021-02-19 08:00 | Outpatient (RCR) | payer MEDICARE, MEDICAID, SELFPAY ==
[2021-02-05 08:00] VITALS: BP 137/71; PULSE 90; RESP 20; TEMP 36.2; BMI 34.7
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
[2021-02-12 07:53] VITALS: BP 172/95; PULSE 74; RESP 18; TEMP 35.9; BMI 34.7
--- NOTE | 2021-02-12 08:00 | WC ---
ELISHA LEFT INTACT
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
[2021-02-19 07:59] VITALS: BP 159/84; PULSE 87; RESP 18; TEMP 36.6; BMI 34.7
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
== END 2021-02-25 23:59 ==
LOC: WC 08:00
PROVIDERS: PCP Family Medicine; Visit Provider Podiatrist Foot & Ankle Surgery
DX: E11.621 Type 2 diabetes mellitus with foot ulcer (principal); M86.171 Other acute osteomyelitis, right ankle and foot; E11.69 Type 2 diabetes mellitus with other specified complication; L97.312 Non-pressure chronic ulcer of right ankle with fat layer exposed
CPT/HCPCS: 15271; Q4121

== ENCOUNTER → 2021-03-08 10:30 | Outpatient (CLI) | payer MEDICARE, MEDICAID, SELFPAY ==
[2021-03-05 08:10] VITALS: BMI 34.7
--- NOTE | 2021-03-08 10:49 | EKG12_ITS ---
Test Reason : Blood Pressure : / mmHG Vent. Rate : 091 BPM Atrial Rate : 091 BPM P-R Int : 126 ms QRS Dur : 076 ms QT Int : 340 ms P-R-T Axes : 027 027 056 degrees QTc Int : 418 ms Normal sinus rhythm Normal ECG Confirmed by JUAN JOSE SZYMANSKI, GENTRY ([id number]), industrial editor JUDAH HENDRICKSON ([id number]) on 03/11/2021 1:44:18 PM Referred By: Brittany Lan Confirmed By:GENTRY INGRAM MD
[2021-03-08 11:17] LABS: Absolute Lymphocyte Count 1.88 X10^3/uL (0.83-4.51); Absolute Neutrophil Count 3.2 X10^3/uL (2.0-7.7); Basophil# 0.05 X10^3/uL; Basophil% 0.9 % (0-1); Eosinophil# 0.17 X10^3/uL; Eosinophils% 2.9 % (0-5); Hematocrit 46.3 % (40-54); Hemoglobin 15.3 g/dL (13.0-16.5); Lymphocyte # 1.88 X10^3/ul (0.83-4.51); Lymphocyte % 32.5 % (19-41); Mean Corpuscular Hgb 29.9 pg (27.0-32.0); Mean Corpuscular Volume 90.6 fL (80-94); Mean Platelet Vol. 10.6 fl (6.2-12.0); Monocyte# 0.43 X10^3/uL; Monocyte% 7.4 % (0-10); NRBC Flagged by Analyzer 0 % (0-5); Neutrophil # 3.24 X10^3/uL (2.7-7.7); Platelet Count 282 K/mm3 (150-450); RBC Distribution Width CV 12.8 % (11.6-14.6); RBC Distribution Width SD 42.1 fl (35.1-43.9); Red Blood Count 5.11 M/mm3 (4.6-6.2); White Blood Count 5.8 K/mm3 (4.4-11.0)
--- NOTE | 2021-03-08 11:17 | RAD_ITS ---
STUDY: X-RAY CHEST REASON FOR EXAM: Male, 65 years old. R ANKLE WOUND/HYPERBARIC OXYGEN TECHNIQUE: PA and lateral views of the chest. COMPARISON: None. FINDINGS: The lungs are clear and expanded. There is no demonstrated pleural abnormality. Normal size heart. Normal mediastinum and sho. Normal visualized pulmonary arteries. Normal visualized aortic arch and descending thoracic aorta. Normal visualized thoracic spine. Normal visualized ribs, clavicles, and shoulders. There is no demonstrated abnormality of the visualized soft tissue structures of the upper abdomen. RAD/Chest PA and Lateral IMPRESSION: Normal x-ray examination of the chest. Electronically Signed: Dank Madrigal MD at 11:19 EDT Tel , Service support ,
[2021-03-08 11:36] LABS: Hemoglobin A1c 10.9 % (3.8-5.6)
[2021-03-08 11:51] LABS: ALB/GLOB Ratio 0.8 RATIO (0.9-2.4); AST(SGOT) 36 U/L (15-37); Alanine Aminotransfer ALT/SGPT 47 U/L (16-61); Albumin, Serum 3.4 g/dL (3.2-5.0); Alkaline Phosphatase 86 U/L (45-117); Anion Gap 6 (5-15); BUN 8 mg/dL (7-18); BUN/Creat Ratio 7.6 RATIO (10-20); Calcium,Total 9.3 mg/dL (8.5-10.1); Chloride 102 mmol/L (98-107); Creatinine, Serum 1.05 mg/dL (0.70-1.30); EST Glomerular Filtration Rate 75 mL/min (>60); Est Glom Filt Rate - Afr Amer 91 mL/min (>60); Glucose 325 mg/dL (74-106); Protein, Total 7.4 g/dL (6.4-8.2); Sodium Level 136 mmol/L (136-145)
== END ==
PROVIDERS: PCP Family Medicine; Referring Provider Podiatrist Foot & Ankle Surgery; Visit Provider Podiatrist Foot & Ankle Surgery
DX: E11.9 Type 2 diabetes mellitus without complications (principal); S91.001A Unspecified open wound, right ankle, initial encounter
CPT/HCPCS: 36415; 71046; 80053; 83036; 85025; 93005

== ENCOUNTER 2021-03-26 09:00 | Outpatient (RCR) | payer MEDICARE, MEDICAID, SELFPAY ==
[2021-02-26 00:40] VITALS: BP 159/84; PULSE 87; RESP 18; TEMP 36.6
[2021-02-26 08:11] VITALS: BP 144/74; PULSE 88; RESP 18; TEMP 35.8; BMI 34.7
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
[2021-03-05 08:10] VITALS: BP 142/82; PULSE 102; RESP 18; TEMP 36.6; BMI 34.7
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
[2021-03-12 09:05] VITALS: BP 149/82; PULSE 82; RESP 16; TEMP 36.2; BMI 34.7
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
--- NOTE | 2021-03-15 13:23 | WC ---
Spoke with Muriel from [facility] insurance regarding the precertification of this patient for hyperbaric treatment and was informed that no prior authorization was needed. Call Reference # [id number]
[2021-03-19 08:45] VITALS: BP 168/70; PULSE 76; RESP 16; TEMP 35.4; BMI 34.7
--- NOTE | 2021-03-19 08:49 | WC ---
asia left intact
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
[2021-03-21 10:46] LABS: Bedside Glucose 408 mg/dL (70-110)
[2021-03-26 08:44] VITALS: BP 162/75; PULSE 90; RESP 16; TEMP 37; BMI 34.7
[2021-03-26 09:31] LABS: Bedside Glucose 249 mg/dL (70-110)
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
[2021-03-26 10:35] LABS: Bedside Glucose 244 mg/dL (70-110)
[2021-03-26 11:24] VITALS: BP 162/75; PULSE 90; RESP 16
== END 2021-03-27 23:59 ==
LOC: WC 09:00
PROVIDERS: PCP Family Medicine; Visit Provider Podiatrist Foot & Ankle Surgery
DX: E11.622 Type 2 diabetes mellitus with other skin ulcer (principal); L97.312 Non-pressure chronic ulcer of right ankle with fat layer exposed; E11.69 Type 2 diabetes mellitus with other specified complication; M86.171 Other acute osteomyelitis, right ankle and foot; R60.0 Localized edema; Z79.1 Long term (current) use of non-steroidal anti-inflammatories (NSAID); Z79.84 Long term (current) use of oral hypoglycemic drugs; I10 Essential (primary) hypertension; Z79.899 Other long term (current) drug therapy; Z87.891 Personal history of nicotine dependence
CPT/HCPCS: 11042; 15271; 82962; 99213; Q4121; G0463

== ENCOUNTER 2021-04-23 10:00 | Outpatient (RCR) | payer MEDICARE, MEDICAID, SELFPAY ==
[2021-03-28 00:28] VITALS: BP 162/75; PULSE 90; RESP 16; TEMP 37
[2021-04-02 08:35] VITALS: BP 148/73; PULSE 89; RESP 16; TEMP 36.2; BMI 34.7
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
[2021-04-02 10:46] LABS: Bedside Glucose 314 mg/dL (70-110)
[2021-04-09 08:53] VITALS: BP 155/70; PULSE 92; RESP 20; TEMP 36.1; BMI 34.7
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
[2021-04-10 09:55] LABS: Bedside Glucose 325 mg/dL (70-110)
[2021-04-23 08:25] LABS: Bedside Glucose 148 mg/dL (70-110)
[2021-04-23 09:07] VITALS: BP 120/72; BP 132/77; PULSE 66; PULSE 80; RESP 16; RESP 17; TEMP 36.1; TEMP 36.2
[2021-04-23 11:11] LABS: Bedside Glucose 127 mg/dL (70-110)
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
== END 2021-04-27 23:59 ==
LOC: WC 10:00
PROVIDERS: PCP Family Medicine; Visit Provider Podiatrist Foot & Ankle Surgery
DX: E11.622 Type 2 diabetes mellitus with other skin ulcer (principal); E11.69 Type 2 diabetes mellitus with other specified complication; L97.312 Non-pressure chronic ulcer of right ankle with fat layer exposed; M86.671 Other chronic osteomyelitis, right ankle and foot; Z91.19 Patient's noncompliance with other medical treatment and regimen
CPT/HCPCS: 11042; 82962; 99183; G0277

== ENCOUNTER 2021-05-21 09:00 | Outpatient (RCR) | payer MEDICARE, MEDICAID, SELFPAY ==
[2021-04-09 08:53] VITALS: BMI 34.7
[2021-04-28 00:29] VITALS: BP 120/72; PULSE 66; RESP 17; TEMP 36.1
[2021-04-30 09:04] VITALS: BP 136/75; PULSE 67; RESP 20; TEMP 36.4; BMI 34.7
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
[2021-05-21 08:51] VITALS: BP 134/77; PULSE 79; RESP 18; TEMP 36.2; BMI 34.7
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
== END 2021-05-28 23:59 ==
LOC: WC 09:00
PROVIDERS: PCP Family Medicine; Visit Provider Podiatrist Foot & Ankle Surgery
DX: E11.621 Type 2 diabetes mellitus with foot ulcer (principal); M86.671 Other chronic osteomyelitis, right ankle and foot; E11.69 Type 2 diabetes mellitus with other specified complication; L97.312 Non-pressure chronic ulcer of right ankle with fat layer exposed; R60.0 Localized edema; T30.0 Burn of unspecified body region, unspecified degree; Z91.19 Patient's noncompliance with other medical treatment and regimen
CPT/HCPCS: 11042

== ENCOUNTER 2021-06-11 09:30 | Outpatient (RCR) | payer MEDICARE, MEDICAID, SELFPAY ==
[2021-05-29 00:33] VITALS: BP 134/77; PULSE 79; RESP 18; TEMP 36.2; BMI 34.7
[2021-06-11 09:00] VITALS: BP 151/56; PULSE 74; RESP 20; TEMP 36.2; BMI 34.7
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
== END 2021-06-27 23:59 ==
LOC: WC 09:30
PROVIDERS: PCP Family Medicine; Visit Provider Podiatrist Foot & Ankle Surgery
DX: I83.013 Varicose veins of right lower extremity with ulcer of ankle (principal); E11.622 Type 2 diabetes mellitus with other skin ulcer; E11.69 Type 2 diabetes mellitus with other specified complication; M86.671 Other chronic osteomyelitis, right ankle and foot; L97.312 Non-pressure chronic ulcer of right ankle with fat layer exposed; T30.0 Burn of unspecified body region, unspecified degree; Z91.19 Patient's noncompliance with other medical treatment and regimen; R60.0 Localized edema
CPT/HCPCS: 11042

== ENCOUNTER 2021-07-09 08:45 | Outpatient (RCR) | payer MEDICARE, MEDICAID, SELFPAY ==
[2021-06-28 00:26] VITALS: BP 151/56; PULSE 74; RESP 20; TEMP 36.2; BMI 34.7
[2021-07-09 08:12] VITALS: BP 134/76; PULSE 74; RESP 16; TEMP 35.9; BMI 34.7
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
== END 2021-07-28 23:59 ==
LOC: WC 08:45
PROVIDERS: PCP Family Medicine; Visit Provider Internal Medicine
DX: I83.013 Varicose veins of right lower extremity with ulcer of ankle (principal); E11.622 Type 2 diabetes mellitus with other skin ulcer; E11.69 Type 2 diabetes mellitus with other specified complication; M86.671 Other chronic osteomyelitis, right ankle and foot; L97.312 Non-pressure chronic ulcer of right ankle with fat layer exposed; T30.0 Burn of unspecified body region, unspecified degree; Z91.19 Patient's noncompliance with other medical treatment and regimen; R60.0 Localized edema
CPT/HCPCS: 11042

== ENCOUNTER 2021-08-15 09:45 | Outpatient (RCR) | payer MEDICARE, MEDICAID, SELFPAY ==
[2021-07-29 00:22] VITALS: BP 134/76; PULSE 74; RESP 16; TEMP 35.9; BMI 34.7
[2021-08-01 08:01] VITALS: BP 134/64; PULSE 74; TEMP 35.8; BMI 34.7
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
[2021-08-15 09:20] VITALS: BP 175/79; PULSE 71; RESP 18; TEMP 35.5; BMI 34.7
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
== END 2021-08-27 23:59 ==
LOC: WC 09:45
PROVIDERS: PCP Family Medicine; Visit Provider Internal Medicine
DX: E11.622 Type 2 diabetes mellitus with other skin ulcer (principal); E11.69 Type 2 diabetes mellitus with other specified complication; M86.671 Other chronic osteomyelitis, right ankle and foot; L97.312 Non-pressure chronic ulcer of right ankle with fat layer exposed; T30.0 Burn of unspecified body region, unspecified degree; Z91.19 Patient's noncompliance with other medical treatment and regimen
CPT/HCPCS: 11042

== ENCOUNTER 2021-09-26 09:45 | Outpatient (RCR) | payer MEDICARE, MEDICAID, SELFPAY ==
[2021-08-28 00:28] VITALS: BP 175/79; PULSE 71; RESP 18; TEMP 35.5; BMI 34.7
[2021-09-12 08:18] VITALS: BP 163/72; PULSE 71; TEMP 36.2; BMI 34.7
--- NOTE | 2021-09-12 08:20 | WC ---
bandage is very dirty. Pt states he changes it daily and washes with soap and water.
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
[2021-09-26 09:14] VITALS: BP 143/66; PULSE 74; TEMP 35.8; BMI 34.7
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
== END 2021-09-27 23:59 ==
LOC: WC 09:45
PROVIDERS: PCP Family Medicine; Visit Provider Internal Medicine
DX: E11.622 Type 2 diabetes mellitus with other skin ulcer (principal); E11.69 Type 2 diabetes mellitus with other specified complication; M86.671 Other chronic osteomyelitis, right ankle and foot; L97.322 Non-pressure chronic ulcer of left ankle with fat layer exposed; Z91.19 Patient's noncompliance with other medical treatment and regimen
CPT/HCPCS: 11042

== ENCOUNTER 2021-10-24 10:00 | Outpatient (RCR) | payer MEDICARE, MEDICAID, SELFPAY ==
[2021-09-28 00:26] VITALS: BP 143/66; PULSE 74; RESP 18; TEMP 35.8; BMI 34.7
[2021-10-10 09:54] VITALS: BP 171/81; PULSE 79; TEMP 36.2; BMI 34.7
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
[2021-10-24 09:40] VITALS: BP 138/82; PULSE 84; RESP 16; BMI 34.7
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
== END 2021-10-28 23:59 ==
LOC: WC 10:00
PROVIDERS: PCP Family Medicine; Visit Provider Internal Medicine
DX: E11.622 Type 2 diabetes mellitus with other skin ulcer (principal); L97.312 Non-pressure chronic ulcer of right ankle with fat layer exposed; M86.671 Other chronic osteomyelitis, right ankle and foot; Z91.19 Patient's noncompliance with other medical treatment and regimen; Z87.2 Personal history of diseases of the skin and subcutaneous tissue
CPT/HCPCS: 11042; 99213; G0463

== ENCOUNTER 2021-11-14 10:30 | Outpatient (RCR) | payer MEDICARE, MEDICAID, SELFPAY ==
[2021-10-29 00:34] VITALS: BP 138/82; PULSE 84; RESP 16; TEMP 36.2; BMI 34.7
[2021-11-07 10:00] VITALS: BP 132/66; PULSE 80; RESP 18; TEMP 36.4; BMI 34.7
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
[2021-11-11 11:31] VITALS: BP 121/79; PULSE 104; RESP 16; TEMP 35.7; BMI 34.7
[2021-11-14 10:25] VITALS: BP 123/81; PULSE 80; RESP 20; TEMP 37; BMI 34.7
== END 2021-11-25 23:59 ==
LOC: WC 10:30
PROVIDERS: PCP Family Medicine; Visit Provider Internal Medicine
DX: E11.622 Type 2 diabetes mellitus with other skin ulcer (principal); L97.312 Non-pressure chronic ulcer of right ankle with fat layer exposed; M86.671 Other chronic osteomyelitis, right ankle and foot; Z87.2 Personal history of diseases of the skin and subcutaneous tissue; Z91.19 Patient's noncompliance with other medical treatment and regimen
CPT/HCPCS: 11042; 29580; 99212; G0463

== ENCOUNTER 2023-09-14 07:08 | Day surgery (SDC) | payer MEDICARE, MEDICAID, SELFPAY ==
[2023-09-14 07:31] VITALS: BP 169/88; PULSE 63; RESP 18; TEMP 36.7; O2SAT 95; BMI 32.5
--- NOTE | 2023-09-14 08:00 | RAD_ITS ---
PROCEDURE: Right lumbar radiofrequency ablation. DATE OF EXAMINATION: September 14, 2023. INDICATION: Male, 68 years old. Chronic low back pain. FLUOROSCOPY TIME (if supplied): (12 seconds) minutes/seconds. 4.7 mCi. 9 fluoroscopic images were obtained. RAD/Lumbar Spine 2 or 3 Views IMPRESSION: Fluoroscopic services provided for right lumbar radiofrequency ablation. Electronically Signed: Dre Banks MD at 11:17 EST ,
[2023-09-14 09:01] VITALS: BP 123/100; PULSE 79
[2023-09-14 09:06] VITALS: BP 163/100; PULSE 69
[2023-09-14] MEDS: MethylPREDNISolone Acetate 40 MG/ML Vial (09:08)
[2023-09-14] MEDS: Lidocaine 1% (30 ml sdv) 30 ML Vial (09:08)
--- NOTE | 2023-09-14 09:38 | OP.PCM_ITS ---
Report of Operation Date of Procedure: 09/14/23 Pre-Operative Diagnosis: Lumbosacral spondylosis, lumbosacral degenerative disc disease, lumbar facet arthropathy Post-Operative Diagnosis: Lumbosacral spondylosis, lumbosacral degenerative disc disease, lumbar facet arthropathy Surgery/Procedure Performed:: Right-sided lumbar radiofrequency ablation of the medial branch L4, L5, S1 Type of Anesthesia: Local and MAC Estimated Blood Loss (mL): Minimal Description of Procedure: History and physical today was reviewed. Risks and benefits of procedure explained. The patient understood, agreed to the procedure and informed consent was obtained. IV inserted per routine protocol. The patient was taken to the operating room, placed in the prone position with a pillow positioned underneath the abdomen. The right side of the lower back was prepped and draped in a sterile fashion using iodine x 3. Under fluoroscopy guidance, on an oblique view, the L3 through S1 vertebral bodies were visualized . The skin and subcutaneous tissue was anesthetized with approximately 10 mL of 1% lidocaine using a 25-gauge regular needle. Under direct visualization with fluoroscopy at approximately 25-degree angle, starting on the right L3, ending on the right S1 passing through the L4-L5 using a 20-gauge 15 cm with a 10 mm curved active tip radiofrequency ablation needle the needle passed through the skin. The tip of the needle was maneuvered and directed towards the superior and medial gutter of the transverse process at the vicinity of the medial branch. Once the tip of the needle was in contact with the bone, the needle pulled approximately 2 mm up the bone. The stylet of each needle was then removed. After negative aspiration of blood with CSF and confirmation of AP as well as oblique view, radiofrequency ablation probe was then inserted at each level. Impedance was then recorded at L3 to be 217, at L4 292, at L5 252, at S1 249 ohm. Motor-evoked potential was then initiated to 1.5 volt without any motor response at each corresponding level. The probe was then removed intact and a total of 6 mL preservative-free 1% lidocaine was injected in divided doses between those 4 levels after negative aspiration of blood with CSF. The radiofrequency ablation probe was then reinserted after confirmation of AP, oblique as well as lateral view. Radiofrequency ablation was then initiated to 80 degrees Celsius for 90 seconds at each level. Once concluded, the probe was then removed intact and a total of 6 mL of preservative-free 0.25% Marcaine with 40 mg Depo-Medrol was injected in divided doses between those 4 levels. The needles were then removed intact. The patient experienced no signs or symptoms of intrathecal, intravascular injection. The patient experienced no paraesthesia. The procedure was completed without any apparent difficulty, any complication. The patient appeared to tolerate well. Sensory as well as motor exam was unchanged from prior to procedure. ASSESSMENT AND PLAN: This is a 68-year-old male with lumbosacral spondylosis, lumbosacral degenerative disc disease, lumbar facet arthropathy, status post right-sided radiofrequency ablation of the medial branch L4 through S1. The patient will continue his current medications. The patient will follow up in approximately 2 weeks for reevaluation. Complications None
== END 2023-09-14 09:45 | disposition home or self-care (01) ==
LOC: SDC 07:10 → AC 07:12
PROVIDERS: PCP Family Medicine; Referring Provider Anesthesiology Pain Medicine; Visit Provider Anesthesiology Pain Medicine
PROC: (CPT 64635; principal; 2023-09-14 08:55)
DX: M47.817 Spondylosis without myelopathy or radiculopathy, lumbosacral region (principal); M46.96 Unspecified inflammatory spondylopathy, lumbar region; M51.37 Other intervertebral disc degeneration, lumbosacral region; Z87.891 Personal history of nicotine dependence
CPT/HCPCS: 64635; 64636; 01992; 72100; 76000

== ENCOUNTER 2024-02-15 07:09 | Day surgery (SDC) | payer MEDICARE, MEDICAID, SELFPAY ==
[2024-02-15] VITALS (7 sets, daily range): BP systolic 96–117; BP diastolic 52–76; PULSE 57–64; RESP 14–16; TEMP 36.1–36.4; O2SAT 94–98; BMI 32.5
[2024-02-15] MEDS: Lactated Ringers 1,000 ML 15 ML IV (07:40)
[2024-02-15 07:59] LABS: Bedside Glucose 55 mg/dL (74-106)
[2024-02-15] MEDS: Dextrose 5%/0.9% NaCl 1,000 ML 200 ML IV (08:00)
[2024-02-15 08:38] LABS: Bedside Glucose 86 mg/dL (74-106)
--- NOTE | 2024-02-15 08:49 | RAD_ITS ---
EXAM: FL FLUOROSCOPY < 1 HOUR CLINICAL INDICATION: LEFT LUMBAR RADIO FREQUENCY ABLATION L4,L5,S1 TECHNIQUE: Fluoroscopic images performed in multiple projections. COMPARISON: No relevant prior studies available. FINDINGS: The total of 7 fluoroscopic images of the lumbar spine obtained during placement of needle localization at L3, L4 and L5. 10 seconds of fluoroscopy utilized. Total dose of 4.7 mGy. See operative note for additional information. RAD/Lumbar Spine 2 or 3 Views IMPRESSION: As above. Electronically Signed: Markell Mchugh MD at 11:33 EDT ,
[2024-02-15] MEDS: Lidocaine 1% (30 ml sdv) 30 ML Vial (09:01)
[2024-02-15] MEDS: MethylPREDNISolone Acetate 40 MG/ML Vial (09:01)
--- NOTE | 2024-02-15 09:17 | PCM.OPRPT ---
Report of Operation Date of Procedure: 02/15/24 Pre-Operative Diagnosis: Lumbosacral spondylosis, lumbosacral degenerative disc disease, lumbar facet arthropathy Post-Operative Diagnosis: Lumbosacral spondylosis, lumbosacral degenerative disc disease, lumbar facet arthropathy Surgery/Procedure Performed:: Left-sided lumbar radiofrequency ablation of the medial branch L4, L5, S1 Type of Anesthesia: MAC Estimated Blood Loss (mL): Minimal Description of Procedure: History and physical today was reviewed. Risks and benefits of procedure explained. The patient understood, agreed to the procedure and informed consent was obtained. IV inserted per routine protocol. The patient was taken to the operating room, placed in the prone position with a pillow positioned underneath the abdomen. The left side of the lower back was prepped and draped in a sterile fashion using iodine x 3. Under fluoroscopy guidance, on an oblique view, the L3 through S1 vertebral bodies were visualized. The skin and subcutaneous tissue was anesthetized with approximately 10 mL of 1% lidocaine using a 25-gauge regular needle. Under direct visualization with fluoroscopy at approximately 25-degree angle, starting on the left L3, ending on the left S1 passing through the L4-L5 using a 20-gauge 15 cm with a 10 mm curved active tip radiofrequency ablation needle the needle passed through the skin. The tip of the needle was maneuvered and directed towards the superior and medial gutter of the transverse process at the vicinity of the medial branch. Once the tip of the needle was in contact with the bone, the needle pulled approximately 2 mm up the bone. The stylet of each needle was then removed. After negative aspiration of blood with CSF and confirmation of AP as well as oblique view, radiofrequency ablation probe was then inserted at each level. Impedance was then recorded at L3 to be 269, at L4 215, at L5 319, at S1 343 ohm. Motor-evoked potential was then initiated to 1.5 volt without any motor response at each corresponding level. The probe was then removed intact and a total of 6 mL preservative-free 1% lidocaine was injected in divided doses between those 4 levels after negative aspiration of blood with CSF. The radiofrequency ablation probe was then reinserted after confirmation of AP, oblique as well as lateral view. Radiofrequency ablation was then initiated to 80 degrees Celsius for 90 seconds at each level. Once concluded, the probe was then removed intact and a total of 6 mL of preservative-free 0.25% Marcaine with 40 mg Depo-Medrol was injected in divided doses between those 4 levels. The needles were then removed intact. The patient experienced no signs or symptoms of intrathecal, intravascular injection. The patient experienced no paraesthesia. The procedure was completed without any apparent difficulty, any complication. The patient appeared to tolerate well. Sensory as well as motor exam was unchanged from prior to procedure. ASSESSMENT AND PLAN: This is a 68-year-old male with lumbosacral spondylosis, lumbosacral degenerative disc disease, lumbar facet arthropathy, status post left-sided lumbar radiofrequency ablation of the medial branch L4 through S1. The patient will continue his current medications. The patient will follow up in approximately 2 weeks for reevaluation. Complications None
== END 2024-02-15 10:01 | disposition home or self-care (01) ==
LOC: SDC 07:15 → AC 07:16
PROVIDERS: PCP Family Medicine; Referring Provider Anesthesiology Pain Medicine; Visit Provider Anesthesiology Pain Medicine
PROC: (CPT 64636; principal; 2024-02-15 08:55)
DX: M47.817 Spondylosis without myelopathy or radiculopathy, lumbosacral region (principal); E11.9 Type 2 diabetes mellitus without complications; M51.37 Other intervertebral disc degeneration, lumbosacral region; I10 Essential (primary) hypertension; M46.96 Unspecified inflammatory spondylopathy, lumbar region; Z79.899 Other long term (current) drug therapy; Z79.84 Long term (current) use of oral hypoglycemic drugs; Z87.891 Personal history of nicotine dependence
CPT/HCPCS: 64636; 64635; 01992; 72100; 76000; 82962; J7120; J2405

== ENCOUNTER → 2024-10-21 05:00 | Outpatient (REF) | payer MEDICARE, SELFPAY ==
[2024-10-21 08:29] LABS: Anion Gap 7 (5-15); BUN 32 mg/dL (7-18); BUN/Creat Ratio 24.2 RATIO (10-20); Calcium,Total 9.5 mg/dL (8.5-10.1); Chloride 103 mmol/L (98-107); Creatinine, Serum 1.32 mg/dL (0.70-1.30); EST Glomerular Filtration Rate 57 mL/min (>60); Est Glom Filt Rate - Afr Amer 69 mL/min (>60); Glucose 139 mg/dL (74-106); Potassium 4.4 mmol/L (3.5-5.1); Sodium Level 136 mmol/L (136-145)
== END ==
LOC: OLS.SW 05:00
PROVIDERS: Visit Provider Internal Medicine
DX: F03.90 Unspecified dementia, unspecified severity, without behavioral disturbance, psychotic disturbance, mood disturbance, and anxiety (principal); E11.9 Type 2 diabetes mellitus without complications; I10 Essential (primary) hypertension; E78.5 Hyperlipidemia, unspecified
CPT/HCPCS: 36415; 80048

== ENCOUNTER → 2025-01-04 | Outpatient (CLI) | payer MEDICARE, MEDICAID, SELFPAY ==
--- NOTE | 2025-01-04 10:18 | MRI_ITS ---
EXAM: Noncontrast MRI of the lumbar spine. CLINICAL HISTORY: Back pain. No history of radiculopathy is provided. COMPARISON: None available TECHNIQUE: Multi planar, multisequence MRI images of the lumbar spine were obtained without IV contrast. FINDINGS: The study assumes a presence of 5 lumbar type, [id number] vertebral bodies. The lumbar vertebral bodies are normal in height, alignment, and marrow signal. No evidence of acute fracture, focal subluxation, or abnormal marrow replacement process. The conus terminates at T12-L1. The included lower spinal cord and lower thoracic intervertebral disc spaces are unremarkable. The included SI joints and sacrum show no specific abnormality. The included retroperitoneal and paraspinal soft tissues demonstrate no specific abnormality except colonic diverticulosis. L1-2: No focal disc herniation, significant central spinal canal, or neural foraminal narrowing. Mild degenerative facet changes. L2-3: A diffuse disc bulge flattens the ventral thecal sac and causes moderate central spinal canal narrowing. No focal disc herniation. Moderate left and [id number] right neural foraminal narrowing. Moderate degenerative facet changes. L3-4: A diffuse disc bulge flattens the ventral thecal sac and causes mild central spinal canal narrowing. No focal disc herniation. Severe bilateral neural foraminal narrowing, greatest on the right. Moderate degenerative facet changes. L4-5: A diffuse disc bulge flattens the ventral thecal sac and causes mild central spinal canal narrowing. No focal disc herniation. Severe bilateral neural foraminal narrowing and moderate degenerative facet changes. L5-S1: Mild disc bulge flattens the ventral thecal sac. There is a tiny right paracentral disc protrusion on image 5 of the axial T2 sequence, which contacts and causes slight posterior displacement of the descending right S1 nerve root. Severe bilateral neural foraminal narrowing. Moderate degenerative facet changes. MRI/Spine Lumbar (Routine) IMPRESSION: No acute bony abnormality of the lumbar spine. Multilevel degenerative disc and facet disease in the lumbar spine as described level by level above. There is moderate central spinal canal narrowing at L2-3 due to a diffuse disc bulge. There is extensive multilevel neural foraminal narrowing and degenerative facet changes, as described in detail level by level above. [facility]
== END | disposition home or self-care (01) ==
PROVIDERS: PCP Family Medicine; Referring Provider Clinical Nurse Specialist Adult Health; Visit Provider Clinical Nurse Specialist Adult Health
DX: M51.369 Other intervertebral disc degeneration, lumbar region without mention of lumbar back pain or lower extremity pain (principal)
CPT/HCPCS: 72148

== ENCOUNTER → 2025-01-20 | Outpatient (REF) | payer MEDICARE, SELFPAY ==
[2025-01-20 09:19] LABS: Vitamin B12 1030 pg/mL (180-914); Vitamin D,25 Hydroxy 48.7 ng/mL (30-100)
== END ==
LOC: OLS.SW 05:00
PROVIDERS: PCP Family Medicine; Visit Provider Internal Medicine
DX: E11.65 Type 2 diabetes mellitus with hyperglycemia (principal); M54.17 Radiculopathy, lumbosacral region
CPT/HCPCS: 36415; 82306; 82607

== ENCOUNTER → 2025-04-18 04:00 | Outpatient (REF) | payer MEDICARE, SELFPAY ==
--- OUTSIDE RECORDS SUMMARY | 2025-04-18 04:08 | XMS RPT_ITS | CCD ---
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 Episodic Other male genital disorders (20 sources) Disorder of prostate; Translations: [Disorder of prostate, unspecified] Onset: 07-31-2015 Episodic Other male genital disorders (1 source) Disorder of prostate, unspecified; Translations: [Prostate disorder] Onset: 05-08-2022 Episodic Other non-traumatic joint disorders (6 sources) Pain in left knee; Translations: [Pain in joint, lower leg] Onset: 08-08-2024 Episodic Other screening for suspected conditions (not mental disorders or infectious disease) (20 sources) Patient encounter status; Translations: [Encounter for screening for malignant neoplasm of prostate] Onset: 07-31-2015 Resolved: 05-22-2020 07-31-2015 Episodic Other skin disorders (20 sources) Scar; Translations: [Scar conditions and fibrosis of skin] Onset: 12-28-2014 09-23-2021 Episodic Other skin disorders (4 sources) Callosity; Translations: [Corns and callosities] Onset: 05-01-2015 10-24-2016 Episodic Other skin disorders (20 sources) Foot callus; Translations: [Corns and callosities] Onset: 05-01-2015 Episodic Screening and history of mental health and substance abuse codes (20 sources) Ex-smoker; Translations: [Personal history of nicotine dependence] Onset: 04-17-2021 04-17-2021 Episodic Skin and subcutaneous tissue infections (4 sources) Cutaneous abscess of right hand; Translations: [Cutaneous abscess of right hand] Onset: 06-08-2017 Episodic Unclassified (1 source) Cutaneous abscess of right hand Onset: 07-06-2017 Results Test Name Value Interpretation Reference Range Facility Vitamin B12on 01-20-2025 Cobalamin (Vitamin B12) [Mass/Vol] 1030 pg/mL High 180-914 [facility] Comment on above: Order Comment: 402-2 Performed By: #### L 506.1001, L503.0106 #### [facility] [address] [place], [place], [id number] Vitamin B12 ser/plasOrdered By: Christine Damon on 01-20-2025 Cobalamin (Vitamin B12) [Mass/Vol] 1030 pg/mL High 180-914 [facility] Vitamin D,25 Hydroxyon 01-20 Vitamin D 25-OH 48.7 ng/mL Normal 30-100 [facility] Comment on above: Order Comment: 402-2 Result Comment: Yaima min D Status Deficiency: <20 ng/mL (50nmol/L) Insufficiency: 20-30 ng/mL (50-75 nmol/L) Sufficiency: 30-100 ng/mL (75-250 nmol/L) Toxicity: >100 ng/mL (>250 nmol/L) Performed By: #### L 506.1001, L503.0106 #### [facility] [address] [place], [place], [id number] Magnetic resonance imaging r eportOrdered By: Sheila Bray on 01-05-2025 Study report [facility] Imaging Services [address] [place] [address] Spine Lumbar (Routine) MR#: [id number] Acct: [id number] Name: JOHN REAL Rep #: [id number] : 1955 M 69 From: Gilbert imtiaz Bray DO PCP: Dr. Benjamin Ramon MD Status: REG CLI Study:Spine Lumbar (Routine) Date of Exam: 01/04/25 Exam# [id number] Ordering Dr: Monalisa Morales EXAM: Noncontrast MRI of the lumbar spine. CLINICAL HISTORY: Back pain. No history of radiculopathy is provided. COMPARISON: None available TECHNIQUE: Multi planar, multisequence MRI images of the lumbar spine were obtained withoutIV contrast. FINDINGS: The study assumes a presence of 5 lumbar type, rtz-wrq-swduavi vertebral bodies. The lumbar vertebral bodies are normal in height, alignment, and marrow signal. No evidence of acute fracture, focal subluxation, or abnormal marrow replacement process. The conus terminates at T12-L1. The included lower spinal cord and lower thoracic intervertebral disc spaces are unremarkable. The included SI joints and sacrum show no specific abnormality. The included retroperitoneal and paraspinal soft tissues demonstrate no specific abnormality except colonic diverticulosis. L1-2: No focal disc herniation, significant central spinal canal, or neural foraminal narrowing. Mild degenerative facet changes. L2-3: A diffuse disc bulge flattens the ventral thecal sac and causes moderate central spinal canal narrowing. No focal disc herniation. Moderate left and ijalsago-lg-egpwfi right neural foraminal narrowing. Moderate degenerative facet changes. L3-4: A diffuse disc bulge flattens the ventral thecal sac and causes mild central spinal canal narrowing. No focal disc herniation. Severe bilateral neural foraminal narrowing, greatest on the right. Moderate degenerative facet changes. L4-5: A diffuse disc bulge flattens the ventral thecal sac and causes mild central spinal canal narrowing. No focal disc herniation. Severe bilateral neural foraminal narrowing and moderate degenerative facet changes. L5-S1: Mild disc bulge flattens the ventral thecal sac. There is a tiny right paracentral disc protrusion on image 5 of the axial T2 sequence, which contacts and causes slight posterior displacement of the descending right S1 nerve root. Severe bilateral neural foraminal narrowing. Moderate degenerative facet changes. MRI/Spine Lumbar (Routine) IMPRESSION: No acute bony abnormality of the lumbar spine. Multilevel degenerative disc and facet disease in the lumbar spine as described level by level above. There is moderate central spinal canal narrowing at L2-3 due to a diffuse disc bulge. There is extensive multilevel neural foraminal narrowing and degenerative facet changes, as described in detail level by level above. Reading Location: [facility] CC: Monalisa Morales; Dr. Benjamin Ramon MD ~ Sensor Specialist: Signed [facility] Spine Lumbar (Routine)on Spine Lumbar (Routine) [facility] Imaging Services [address] [place], [place] [id number] Spine Lumbar (Routine) MR#: [id number] Acct: [id number] Name: JOHN REAL Rep #: [id number] : 1955 M 69 From: Sheila Santa i DO PCP: Dr. Benjamin Ramon MD Status: REG CLI Study: Spine Lumbar (Routine) Date of Exam: 01/04/25 Exam# [id number] Ordering Dr: Monalisa Morales EXAM: Noncontrast MRI of the lumbar spine. CLINICAL HISTORY: Back pain. No history of radiculopathy is provided. COMPARISON: None available TECHNIQUE: Multi planar, multisequence MRI images of the lumbar spine were obtained without IV contrast. FINDINGS: The study assumes a presence of 5 lumbar type, nal-kxa-reohuby vertebral bodies. The lumbar vertebral bodies are normal in height, alignment, and marrow signal. No evidence of acute fracture, focal subluxation, or abnormal marrow replacement process. The conus terminates at T12-L1. The included lower spinal cord and lower thoracic intervertebral disc spaces are unremarkable. The included SI joints and sacrum show no specific abnormality. The included retroperitoneal and paraspinal soft tissues demonstrate no specific abnormality except colonic diverticulosis. L1-2: No focal disc herniation, significant central spinal canal, or neural foraminal narrowing. Mild degenerative facet changes. L2-3: A diffuse disc bulge flattens the ventral thecal sac and causes moderate central spinal canal narrowing. No focal disc herniation. Moderate left and sgimdima-dq-mxfobj right neural foraminal narrowing. Moderate degenerative facet changes. L3-4: A diffuse disc bulge flattens the ventral thecal sac and causes mild central spinal canal narrowing. No focal disc herniation. Severe bilateral neural foraminal narrowing, greatest on the right. Moderate degenerative facet changes. L4-5: A diffuse disc bulge flattens the ventral thecal sac and causes mild central spinal canal narrowing. No focal disc herniation. Severe bilateral neural foraminal narrowing and moderate degenerative facet changes. L5-S1: Mild disc bulge flattens the ventral thecal sac. There is a tiny right paracentral disc protrusion on image 5 of the axial T2 sequence, which contacts and causes slight posterior displacement of the descending right S1 nerve root. Severe bilateral neural foraminal narrowing. Moderate degenerative facet changes. MRI/Spine Lumbar (Routine) IMPRESSION: No acute bony abnormality of the lumbar spine. Multilevel degenerative disc and facet disease in the lumbar spine as described level by level above. There is moderate central spinal canal narrowing at L2-3 due to a diffuse disc bulge. There is extensive multilevel neural foraminal narrowing and degenerative facet changes, as described in detail level by level above. Reading Location: [facility] CC: Monalisa Morales; Dr. Benjamin Ramon MD Sensor Specialist: [facility] (FAMPWS ) JOHN REAL ([id number]) 1955 M Date Time Provider Department 11/11/24 11:40 [facility] During your visit today, we recorded the following information about you: Lor Belcher PA-C 11/11/2024 11:23 AM Signed Patient no longer a patient of Dr Ramon'anibal. Currently seeing DR. Christine Damon at [facility] who's managing his care. We confirmed this with "Hilton" at [facility]. This appointment should have been cancelled prior. We apologized for the confusion. No charge. Lor Belcher PA-C Allergies As of Date: 11/11/2024 (No Known Allergies) Date Reviewed: 05/11/2024 Reviewed by: Benjamin Ramon MD - Fully Assessed Primary Visit Diagnosis:NO SHOW Prescriptions as of 11/11/2024 - fluticasone (FLONASE) 50 mcg/actuation nasal spray Use 2 Sprays in each nostril once daily. Rinse mouth after use. - glimepiride (AMARYL) 4 mg tablet Take 1 tablet by mouth two times a day with meals. - empagliflozin (JARDIANCE) 25 mg tablet Take 1 tablet by mouth once daily. Take 1 tablet once daily in the morning - atorvastatin (LIPITOR) 80 mg tablet Take 1 tablet by mouth once daily. - Fenofibrate (LOFIBRA) 160 mg tablet Take 1 tablet by mouth once daily. - pioglitazone (ACTOS) 45 mg tablet Take 1 tablet by mouth once daily. - metFORMIN ER (GLUCOPHAGE XR) 500 mg 24 hr tablet TAKE TWO TABLETS BY MOUTH TWICE DAILY WITH MEALS - cyanocobalamin (VITAMIN B-12) 1,000 mcg tab Take 1 tablet by mouth once daily. - lisinopril (ZESTRIL) 20 mg tablet Take 1 tablet by mouth once daily. - Cholecalciferol, Vitamin D3, 50 mcg (2,000 unit) cap Take 2 capsules by mouth once daily. - cetirizine (ZYRTEC) 10 mg tablet Take 1 tablet by mouth once daily. - omega-3 fatty acids (FISH OIL CONCENTRATE) 1,000 mg cap Take 2 capsules by mouth twice daily. - blood sugar diagnostic (BLOOD GLUCOSE TEST) test strip Test blood sugar(s) 2 times daily. Dx: Type 2 DM - Uncontrolled E11.65 Insulin: No - Lancets lancets Test blood sugar(s) 2 times daily. Dx: Type 2 DM - Uncontrolled E11.65 Insulin: No Problem List As Of Date 11/11/2024 Noted Resolved Cervical pain [M54.2] Thoracic back pain [M54.6] Lumbar pain [M54.50] Spermatocele of epididymis, left [N43.40] 12/16/2013 Hydrocele, left [N43.3] 12/16/2013 Elevated fasting blood sugar [R73.01] 08/21/2014 05/01/2015 Scar tissue [L90.5] 12/28/2014 Encounter for Medicare annual wellness exam [Z0*05/01/2015 Gastroesophageal reflux disease without esophag*05/01/2015 Foot callus [L84] 05/01/2015 Mixed hyperlipidemia [E78.2] 07/31/2015 Prostate disorder [N42.9] 07/31/2015 Elevated LFTs [R79.89] 08/06/2015 05/22/2020 Controlled type 2 diabetes mellitus without com*10/22/2016 Diabetic eye exam (HCC) [Z01.00, E11.9] 02/24/2017 Screening for colon cancer [Z12.11] 02/24/2017 Essential hypertension [I10] 11/03/2017 Tear of medial meniscus of left knee, current [*04/20/2018 Vitamin B12 deficiency [E53.8] 04/18/2019 Vitamin D deficiency [E55.9] 10/10/2020 Skin ulcer, stage 3 (HCC) [L98.499] 10/10/2020 05/08/2022 Uncontrolled type 2 diabetes mellitus with hype*04/09/2021 05/12/2024 Ex-smoker [Z87.891] 04/17/2021 Abdominal aortic aneurysm (AAA) without rupture*05/02/2021 06/25/2023 Advance directive discussed with patient [Z71.8*05/08/2022 Subacute osteomyelitis of right ankle (HCC) [M8*03/02/2023 06/10/2023 Obesity, Class I, BMI 30-34.9 [E66.811] 01/21/2024 Current mild episode of major depressive disord*05/11/2024 Encounter Status:Closed by LOR PITTS on 11/11/24 Normal [place] Basic Metabolic Profile (BMP )on 10-21-2024 BUN/CRE 24.2 RATIO High 10-20 [facility] Comment on above: Order Comment: 402.2 Performed By: #### L 100.0500, L500.2500 #### [facility] [address] [place], [address] CA,Total 9.5 mg/dL Normal 8.5-10.1 [facility] Comment on above: Order Comment: 402.2 Performed By: #### L 100.0500, L500.2500 #### [facility] [address] [place], [address] Chloride [Moles/Vol] 103 mmol/L Normal 98-107 [facility] Comment on above: Order Comment: 402.2 Performed By: #### L 100.0500, L500.2500 #### [facility] [address] [place], [address] CO2 [Moles/Vol] 26.0 mmol/L Normal 21.0-32.0 [facility] Comment on above: Order Comment: 402.2 Performed By: #### L 100.0500, L500.2500 #### [facility] [address] [place], [address] Creatinine [Mass/Vol] 1.32 mg/dL High 0.70-1.30 [facility] Comment on above: Order Comment: 402.2 Result Comment: The validity of the calculated GFR GFRAA in patients over 70 years has not been determined. Clinical correlation is essential. Performed By: #### L 100.0500, L500.2500 #### [facility] [address] [place], [address] EST GFR - AA 69 mL/min Normal >60 [facility] Comment on above: Order Comment: 402.2 Result Comment: Afri can [place] GFR Calc Performed By: #### L 100.0500, L500.2500 #### [facility] [address] [place], [address] GAP 7 Normal 5-15 [facility] Comment on above: Order Comment: 402.2 Performed By: #### L 100.0500, L500.2500 #### [facility] [address] [place], [address] GFR/1.73 sq M.predicted among non-blacks MDRD (S/P/Bld) [Vol rate/Area] 57 mL/min/{1.73_m2} Low >60 [facility] Comment on above: Order Comment: 402.2 Result Comment: Non- GFR Calc Performed By: #### L 100.0500, L500.2500 #### [facility] [address] [place], [address] Glucose [Mass/Vol] 139 mg/dL High 74-[address] [facility] Comment on above: Order Comment: 402.2 Result Comment: Fast ing Glucose result greater than or equal to 126 mg/dL suggests DIABETES MELLITUS per A.D.A. criteria. Performed By: #### L 100.0500, L500.2500 #### [facility] [address] [place], [address] Potassium [Moles/Vol] 4.4 mmol/L Normal 3.5-5.1 [facility] Comment on above: Order Comment: 402.2 Performed By: #### L 100.0500, L500.2500 #### [facility] [address] [place], [address] Sodium [Moles/Vol] 136 mmol/L Normal 136-[address] [facility] Comment on above: Order Comment: 402.2 Performed By: #### L 100.0500, L500.2500 #### [facility] [address] [place], [address] Urea nitrogen [Mass/Vol] 32 mg/dL High 7-18 [facility] Comment on above: Order Comment: 402.2 Performed By: #### L 100.0500, L500.2500 #### [facility] [address] [place], [address] Blood urea nitrogen (BUN)/cr eatinine ratioOrdered By: Christine Damon on 10-21-2024 Urea nitrogen/Creatinine [Mass ratio] 24.2 mg/mg High 10-20 [facility] Carbon dioxide measurementOr dered By: Christine Damon on 10-21-2024 CO2 [Moles/Vol] 26.0 mmol/L 21.0-32.0 [facility] Chloride measurementOrdered By: Christine Damon on 10-21-2024 Chloride [Moles/Vol] 103 mmol/L 98-107 [facility] Estimated glomerular filtrat ion rate (GFR) AmericanOrdered By: Christine Damon on 10-21-2024 Estimated GFR (MDRD) Amer 69 mL/min >60 [facility] Comment on above: GFR Calc Glomerular filtration rate ( GFR) estimationOrdered By: Christine Damon on 10-21-2024 Estimated GFR (MDRD) Non-Af Amer 57 mL/min Low >60 [facility] Comment on above: Non- GFR Calc GFR/1.73 sq M.predicted among non-blacks MDRD (S/P/Bld) [Vol rate/Area] 57 mL/min/{1.73_m2} Low >60 [facility] Comment on above: Non- GFR Calc Glucose measurementOrdered B y: Christine Damon on 10-21-2024 Glucose [Mass/Vol] 139 mg/dL High 74-[address] [facility] Comment on above: Fasting Glucose resu lt greater than or equal to 126 mg/dL suggests DIABETES MELLITUS per A.D.A. criteria. Potassium measurementOrdered By: Christine Damon on 10-21-2024 Potassium [Moles/Vol] 4.4 mmol/L 3.5-5.1 [facility] Serum anion gap measurementO rdered By: Christine Damon on 10-21-2024 Anion gap [Moles/Vol] 7 mmol/L 5-15 [facility] Serum or plasma calcium álvaro urement (mass/volume)Ordered By: Christine Damon on 10-21-2024 Calcium [Mass/Vol] 9.5 mg/dL 8.5-10.[address] [facility] Serum or plasma creatinine m easurement (mass/volume)Ordered By: Christine Damon on 10-21-2024 Creatinine [Mass/Vol] 1.32 mg/dL High 0.70-1.30 [facility] Comment on above: The validity of the calculated GFR & GFRAA in patients over 70 years has not been determined. Clinical correlation is essential. Serum or plasma urea nitroge n measurement (mass/volume)Ordered By: Christine Damon on 10-21-2024 Urea nitrogen [Mass/Vol] 32 mg/dL High 7-18 [facility] Sodium levelOrdered By: Shubham Damon on 10-21-2024 Sodium [Moles/Vol] 136 mmol/L 136-[address] [facility] 83-SI-Cwqhtcl DOrdered By: Gian Damon on 10-17-2024 Vitamin D 25-Hydroxy 59.6 ng/mL [facility] Comment on above: Vitamin D 25(OH) Sta tus Range Deficiency <20 ng/mL (50nmol/L) Insufficiency 20 - 30 ng/mL (50 - 75 nmol/L) Sufficiency 30 - 100 ng/mL (75 - 250 nmol/L) Toxicity >100 ng/mL (>250 nmol/L) Absolute lymphocyte countOrd ered By: Christine Damon on 10-17-2024 Lymphocytes Auto (Unsp spec) [#/Vol] 1.97 10*3/uL 0.83-4.51 [facility] Absolute neutrophil countOrd ered By: Christine Damon on 10-17-2024 Neutrophils (Bld) [#/Vol] 3.9 10*3/uL 2.0-7.7 [facility] Albumin to globulin ratioOrd ered By: Christine Damon on 10-17-2024 Albumin/Globulin [Mass ratio] 1.0 {ratio} 0.9-2.4 [facility] Automated lymphocyte count a s percentage of total leukocytesOrdered By: Christine Damon on 10-17-2024 Lymphocytes/100 WBC Auto (Unsp spec) 29.7 % 19-41 [facility] Basophil percentageOrdered B y: Christine Damon on 10-17-2024 Basophils/100 WBC (Bld) 1.1 % High 0-1 [facility] Bilirubin, totalOrdered By: Christine Damon on 10-17-2024 Bilirubin [Mass/Vol] 0.40 mg/dL 0.20-1.00 [facility] Comment on above: For patients on eltr ombopag therapy, use of Dimension [place] TBIL is not recommended. Blood urea nitrogen (BUN)/cr eatinine ratioOrdered By: Christine Damon on 10-17-2024 Urea nitrogen/Creatinine [Mass ratio] 19.1 mg/mg 07-17 [facility] CBC W/Diff, Automatedon 09-29 Absolute Lymph 1.97 X10 3/uL Normal 0.83-4.51 [facility] Comment on above: Order Comment: 402-2 Performed By: #### L 501.9520, L500.4100, L503.0105, L500.4050, L506.1000, L501.9985, L100.0100 #### [facility] [address] [place], [address] Absolute Neut 3.9 X10 3/uL Normal 2.0-7.7 [facility] Comment on above: Order Comment: 402-2 Performed By: #### L 501.9520, L500.4100, L503.0105, L500.4050, L506.1000, L501.9985, L100.0100 #### [facility] [address] [place], [address] Basophils/100 WBC (Bld) 1.1 % High 0-1 [facility] Comment on above: Order Comment: 402-2 Performed By: #### L 501.9520, L500.4100, L503.0105, L500.4050, L506.1000, L501.9985, L100.0100 #### [facility] [address] [place], [address] Eosinophils/100 WBC (Bld) 2.4 % Normal 0-5 [facility] Comment on above: Order Comment: 402-2 Performed By: #### L 501.9520, L500.4100, L503.0105, L500.4050, L506.1000, L501.9985, L100.0100 #### [facility] [address] [place], [address] Erythrocyte distribution width (RBC) [Ratio] 12.4 % Normal 11.6-14.6 [facility] Comment on above: Order Comment: 402-2 Performed By: #### L 501.9520, L500.4100, L503.0105, L500.4050, L506.1000, L501.9985, L100.0100 #### [facility] [address] [place], [address] Hematocrit (Bld) [Volume fraction] 46.2 % Normal 40-54 [facility] Comment on above: Order Comment: 402-2 Performed By: #### L 501.9520, L500.4100, L503.0105, L500.4050, L506.1000, L501.9985, L100.0100 #### [facility] [address] [place], [address] Hemoglobin (Bld) [Mass/Vol] 14.9 g/dL Normal 13.0-16.5 [facility] Comment on above: Order Comment: 402-2 Performed By: #### L 501.9520, L500.4100, L503.0105, L500.4050, L506.1000, L501.9985, L100.0100 #### [facility] [address] [place], [address] IG% 0.500 Normal 0.0-0.9 [facility] Comment on above: Order Comment: 402-2 Result Comment: IG% - Immature Granulocytes (promyelocytes, myelocytes and metamyelocytes) > 1% indicates that a LEFT SHIFT is Present. Performed By: #### L 501.9520, L500.4100, L503.0105, L500.4050, L506.1000, L501.9985, L100.0100 #### [facility] [address] [place], [address] Lymphocytes/100 WBC (Bld) 29.7 % Normal 19-41 [facility] Comment on above: Order Comment: 402-2 Performed By: #### L 501.9520, L500.4100, L503.0105, L500.4050, L506.1000, L501.9985, L100.0100 #### [facility] [address] [place], [address] MCH (RBC) [Entitic mass] 30.2 pg Normal 27.0-32.0 [facility] Comment on above: Order Comment: 402-2 Performed By: #### L 501.9520, L500.4100, L503.0105, L500.4050, L506.1000, L501.9985, L100.0100 #### [facility] [address] [place], [address] MCHC (RBC) [Mass/Vol] 32.3 g/dL Normal 32-36 [facility] Comment on above: Order Comment: 402-2 Performed By: #### L 501.9520, L500.4100, L503.0105, L500.4050, L506.1000, L501.9985, L100.0100 #### [facility] [address] [place], [address] MCV (RBC) [Entitic vol] 93.5 fL Normal 80-94 [facility] Comment on above: Order Comment: 402-2 Performed By: #### L 501.9520, L500.4100, L503.0105, L500.4050, L506.1000, L501.9985, L100.0100 #### [facility] [address] [place], [address] Monocytes/100 WBC (Bld) 7.8 % Normal 0-10 [facility] Comment on above: Order Comment: 402-2 Performed By: #### L 501.9520, L500.4100, L503.0105, L500.4050, L506.1000, L501.9985, L100.0100 #### [facility] [address] [place], [address] Neutrophils/100 WBC (Bld) 58.5 % Normal 47-70 [facility] Comment on above: Order Comment: 402-2 Performed By: #### L 501.9520, L500.4100, L503.0105, L500.4050, L506.1000, L501.9985, L100.0100 #### [facility] [address] [place], [address] Nucleated RBC (Bld) [#/Vol] 0 10*3/uL Normal 0-5 [facility] Comment on above: Order Comment: 402-2 Performed By: #### L 501.9520, L500.4100, L503.0105, L500.4050, L506.1000, L501.9985, L100.0100 #### [facility] [address] [place], [address] Platelet mean volume (Bld) [Entitic vol] 9.8 fL Normal 6.2-12.0 [facility] Comment on above: Order Comment: 402-2 Performed By: #### L 501.9520, L500.4100, L503.0105, L500.4050, L506.1000, L501.9985, L100.0100 #### [facility] [address] [place], [address] Platelets (Bld) [#/Vol] 269 10*3/uL Normal 150-450 [facility] Comment on above: Order Comment: 402-2 Performed By: #### L 501.9520, L500.4100, L503.0105, L500.4050, L506.1000, L501.9985, L100.0100 #### [facility] [address] [place], [address] RBC (Bld) [#/Vol] 4.94 10*6/uL Normal 4.6-6.2 [facility] Comment on above: Order Comment: 402-2 Performed By: #### L 501.9520, L500.4100, L503.0105, L500.4050, L506.1000, L501.9985, L100.0100 #### [facility] [address] [place], [address] RDW SD 42.6 fl Normal 35.1-43.9 [facility] Comment on above: Order Comment: 402-2 Performed By: #### L 501.9520, L500.4100, L503.0105, L500.4050, L506.1000, L501.9985, L100.0100 #### [facility] [address] [place], [address] WBC (Bld) [#/Vol] 6.6 10*3/uL Normal 4.4-11.[address] [facility] Comment on above: Order Comment: 402-2 Performed By: #### L 501.9520, L500.4100, L503.0105, L500.4050, L506.1000, L501.9985, L100.0100 #### [facility] [address] [place], [address] Carbon dioxide measurementOr dered By: Christine Damon on 10-17-2024 CO2 [Moles/Vol] 20.0 mmol/L Low 21.0-32.0 [facility] Chloride measurementOrdered By: Christine Damon on 10-17-2024 Chloride [Moles/Vol] 105 mmol/L 98-107 [facility] Comprehensive Metabolic Prof ilon 10-17-2024 Albumin [Mass/Vol] 3.5 g/dL Normal 3.2-5.[address] [facility] Comment on above: Order Comment: 402-2 Performed By: #### L 501.9520, L500.4100, L503.0105, L500.4050, L506.1000, L501.9985, L100.0100 #### [facility] [address] [place], [address] Albumin/Globulin [Mass ratio] 1.0 {ratio} Normal 0.9-2.4 [facility] Comment on above: Order Comment: 402-2 Performed By: #### L 501.9520, L500.4100, L503.0105, L500.4050, L506.1000, L501.9985, L100.0100 #### [facility] [address] [place], [address] ALK P 44 U/L Low 45-117 [facility] Comment on above: Order Comment: 402-2 Performed By: #### L 501.9520, L500.4100, L503.0105, L500.4050, L506.1000, L501.9985, L100.0100 #### [facility] [address] [place], [address] ALT [Catalytic activity/Vol] 41 U/L Normal 16-61 [facility] Comment on above: Order Comment: 402-2 Performed By: #### L 501.9520, L500.4100, L503.0105, L500.4050, L506.1000, L501.9985, L100.0100 #### [facility] [address] [place], [address] AST [Catalytic activity/Vol] 16 U/L Normal 15-37 [facility] Comment on above: Order Comment: 402-2 Performed By: #### L 501.9520, L500.4100, L503.0105, L500.4050, L506.1000, L501.9985, L100.0100 #### [facility] [address] [place], [address] Bilirubin [Mass/Vol] 0.40 mg/dL Normal 0.20-1.00 [facility] Comment on above: Order Comment: 402-2 Result Comment: For patients on eltrombopag therapy, use of Dimension [place] TBIL is not recommended. Performed By: #### L 501.9520, L500.4100, L503.0105, L500.4050, L506.1000, L501.9985, L100.0100 #### [facility] [address] [place], [address] BUN/CRE 19.1 RATIO Normal 10-20 [facility] Comment on above: Order Comment: 402-2 Performed By: #### L 501.9520, L500.4100, L503.0105, L500.4050, L506.1000, L501.9985, L100.0100 #### [facility] [address] [place], [address] CA,Total 9.4 mg/dL Normal 8.5-10.1 [facility] Comment on above: Order Comment: 402-2 Performed By: #### L 501.9520, L500.4100, L503.0105, L500.4050, L506.1000, L501.9985, L100.0100 #### [facility] [address] [place], [address] Chloride [Moles/Vol] 105 mmol/L Normal 98-107 [facility] Comment on above: Order Comment: 402-2 Performed By: #### L 501.9520, L500.4100, L503.0105, L500.4050, L506.1000, L501.9985, L100.0100 #### [facility] [address] [place], [address] CO2 [Moles/Vol] 20.0 mmol/L Low 21.0-32.0 [facility] Comment on above: Order Comment: 402-2 Performed By: #### L 501.9520, L500.4100, L503.0105, L500.4050, L506.1000, L501.9985, L100.0100 #### [facility] [address] [place], [address] Creatinine [Mass/Vol] 1.36 mg/dL High 0.70-1.30 [facility] Comment on above: Order Comment: 402-2 Result Comment: The validity of the calculated GFR GFRAA in patients over 70 years has not been determined. Clinical correlation is essential. Performed By: #### L 501.9520, L500.4100, L503.0105, L500.4050, L506.1000, L501.9985, L100.0100 #### [facility] [address] [place], [place], [id number] (202 EST GFR - AA 67 mL/min Normal >60 [facility] Comment on above: Order Comment: 402-2 Result Comment: Afri can [place] GFR Calc Performed By: #### L 501.9520, L500.4100, L503.0105, L500.4050, L506.1000, L501.9985, L100.0100 #### [facility] [address] [place], [address] GAP 8 Normal 5-15 [facility] Comment on above: Order Comment: 402-2 Performed By: #### L 501.9520, L500.4100, L503.0105, L500.4050, L506.1000, L501.9985, L100.0100 #### [facility] [address] [place], [address] GFR/1.73 sq M.predicted among non-blacks MDRD (S/P/Bld) [Vol rate/Area] 55 mL/min/{1.73_m2} Low >60 [facility] Comment on above: Order Comment: 402-2 Result Comment: Non- GFR Calc Performed By: #### L 501.9520, L500.4100, L503.0105, L500.4050, L506.1000, L501.9985, L100.0100 #### [facility] [address] [place], [address] Globulin (S) [Mass/Vol] 3.6 g/dL Normal 2.2-4.2 [facility] Comment on above: Order Comment: 402-2 Performed By: #### L 501.9520, L500.4100, L503.0105, L500.4050, L506.1000, L501.9985, L100.0100 #### [facility] [address] [place], [address] Glucose [Mass/Vol] 209 mg/dL High 74-[address] [facility] Comment on above: Order Comment: 402-2 Result Comment: Gluc ose result greater than or equal to 200 mg/dL suggests DIABETES MELLITUS per A.D.A. criteria. Performed By: #### L 501.9520, L500.4100, L503.0105, L500.4050, L506.1000, L501.9985, L100.0100 #### [facility] [address] [place], [address] Potassium [Moles/Vol] 4.3 mmol/L Normal 3.5-5.1 [facility] Comment on above: Order Comment: 402-2 Performed By: #### L 501.9520, L500.4100, L503.0105, L500.4050, L506.1000, L501.9985, L100.0100 #### [facility] [address] [place], [address] Sodium [Moles/Vol] 132 mmol/L Low 136-[address] [facility] Comment on above: Order Comment: 402-2 Performed By: #### L 501.9520, L500.4100, L503.0105, L500.4050, L506.1000, L501.9985, L100.0100 #### [facility] [address] [place], [address] T PROT 7.1 g/dL Normal 6.4-8.2 [facility] Comment on above: Order Comment: 402-2 Performed By: #### L 501.9520, L500.4100, L503.0105, L500.4050, L506.1000, L501.9985, L100.0100 #### [facility] [address] [place], [address] Urea nitrogen [Mass/Vol] 26 mg/dL High 7-18 [facility] Comment on above: Order Comment: 402-2 Performed By: #### L 501.9520, L500.4100, L503.0105, L500.4050, L506.1000, L501.9985, L100.0100 #### [facility] [address] [place], [place], [id number] Eosinophil percentageOrdered By: Christine Damon on 10-17-2024 Eosinophils/100 WBC (Bld) 2.4 % 0-5 [facility] Erythrocyte distribution wid th (RBC) [Ratio]Ordered By: Christine Damon on 10-17-2024 Erythrocyte distribution width (RBC) [Entitic vol] 42.6 fL 35.1-43.9 [facility] Erythrocyte distribution wid th ratioOrdered By: Christine Damon on 10-17-2024 Erythrocyte distribution width (RBC) [Ratio] 12.4 % 11.6-14.6 [facility] Erythrocyte distribution wid th standard deviationOrdered By: Christine Damon on 10-17-2024 Erythrocyte distribution width (RBC) [Ratio] 42.6 fl 35.1-43.9 [facility] Estimated glomerular filtrat ion rate (GFR) AmericanOrdered By: Christine Damon on 10-17-2024 Estimated GFR (MDRD) Amer 67 mL/min >60 [facility] Comment on above: GFR Calc Glomerular filtration rate ( GFR) estimationOrdered By: Christine Damon on 10-17-2024 Estimated GFR (MDRD) Non-Af Amer 55 mL/min Low >60 [facility] Comment on above: Non- GFR Calc GFR/1.73 sq M.predicted among non-blacks MDRD (S/P/Bld) [Vol rate/Area] 55 mL/min/{1.73_m2} Low >60 [facility] Comment on above: Non- GFR Calc Glucose measurementOrdered B y: Christine Damon on 10-17-2024 Glucose [Mass/Vol] 209 mg/dL High 74-[address] [facility] Comment on above: Glucose result great er than or equal to 200 mg/dLsuggests DIABETES MELLITUS per A.D.A. criteria. Hematocrit Auto (Bld) [Volum e fraction]Ordered By: Christine Damon on 10-17-2024 Hematocrit (Bld) [Volume fraction] 46.2 % 40-54 [facility] Hemoglobin A1con 10-17-2024 HbA1c (Bld) [Mass fraction] 6.2 % High 3.8-5.6 [facility] Comment on above: Order Comment: 402.2 Result Comment: Norm al < 5.7 % Prediabetic 5.7 - 6.4 % Diabetic >or= 6.5 % Please note range changes. Performed By: #### L 100.0500, L500.2500 #### [facility] [place], [address] Hemoglobin A1c percentageOrd ered By: Christine Damon on 10-17-2024 HbA1c (Bld) [Mass fraction] 6.2 % High 3.8-5.6 [facility] Comment on above: Normal < 5.7 % Predi abetic 5.7 - 6.4 % Diabetic >or= 6.5 % Please note range changes. Hemoglobin measurementOrdere d By: Christine Damon on 10-17-2024 Hemoglobin (Bld) [Mass/Vol] 14.9 g/dL 13.0-16.5 [facility] High density lipoprotein (HD L) measurementOrdered By: Christine Damon on 10-17-2024 Cholesterol in HDL [Mass/Vol] 32 mg/dL Low >40 [facility] Comment on above: The drugs N-Acetylcy steine and Metamizole may falsely depress this assay. Reference Range HDL <40 mg/dL Low HDL Cholesterol HDL >or= 60 mg/dL High HDL Cholesterol Immature granulocytes/100 WB C Auto (Bld)Ordered By: Christine Damon on 10-17-2024 Immature granulocytes/100 WBC (Bld) 0.500 % 0.0-0.9 [facility] Comment on above: IG% - Immature Granu locytes (promyelocytes, myelocytes and metamyelocytes) > 1% indicates that a LEFT SHIFT is Present. Laboratory - Chemistry and C hemistry - challengeOrdered By: Christine Damon on 10-17-2024 AST [Catalytic activity/Vol] 16 U/L 15-37 [facility] Lipid Profileon 10-17-2024 Cholesterol [Mass/Vol] 142 mg/dL Normal 200 [facility] Comment on above: Order Comment: 402.2 Result Comment: <200 mg/dL Desirable 200-240 mg/dL Borderline >240 mg/dL High Risk Performed By: #### L 100.0500, L500.2500 #### [facility] [address] [place], [address] Cholesterol in HDL [Mass/Vol] 32 mg/dL Low [facility] Comment on above: Order Comment: 402.2 Result Comment: The drugs N-Acetylcysteine and Metamizole may falsely depress this assay. Reference Range HDL <40 mg/dL Low HDL Cholesterol HDL >or= 60 mg/dL High HDL Cholesterol Performed By: #### L 100.0500, L500.2500 #### [facility] [address] [place], [address] Cholesterol in LDL [Mass/Vol] 46 mg/dL Normal 0-130 [facility] Comment on above: Order Comment: 402.2 Performed By: #### L 100.0500, L500.2500 #### [facility] [address] [place], [address] Cholesterol in VLDL [Mass/Vol] 64 mg/dL High 5-40 [facility] Comment on above: Order Comment: 402.2 Performed By: #### L 100.0500, L500.2500 #### [facility] [address] [place], [address] Triglyceride [Mass/Vol] 318 mg/dL High [facility] Comment on above: Order Comment: 402.2 Result Comment: The drugs N-Acetylcysteine and Metamizole may falsely depress this assay. Serum Triglycerides Reference Interval Normal <150 mg/dL Borderline high 150 - 199 mg/dL High 200 - 499 mg/dL Very High > or = 500 mg/dL Performed By: #### L 100.0500, L500.2500 #### [facility] [address] [place], [address] Low density lipoprotein (LDL ) cholesterol measurementOrdered By: Christine Damon on 10-17-2024 Cholesterol in LDL [Mass/Vol] 46 mg/dL 0-130 [facility] Lymphocytes Auto (Unsp spec) [#/Vol]Ordered By: Christine Damon on 10-17-2024 Lymphocytes (Bld) [#/Vol] 1.97 10*3/uL 0.83-4.51 [facility] Lymphocytes/100 WBC Auto (Un sp spec)Ordered By: Christine Damon on 10-17-2024 Lymphocytes/100 WBC (Bld) 29.7 % 19-41 [facility] MCV (mean corpuscular volume ) determinationOrdered By: Christine Damon on 10-17-2024 MCV (RBC) [Entitic vol] 93.5 fL 80-94 [facility] Mean corpuscular hemoglobin (MCH) determinationOrdered By: Christine Damon on 10-17-2024 MCH (RBC) [Entitic mass] 30.2 pg 27.0-32.0 [facility] Mean corpuscular hemoglobin concentration (MCHC) determinationOrdered By: Christine Damon on 10-17-2024 MCHC (RBC) [Mass/Vol] 32.3 g/dL 32-36 [facility] Mean platelet volume determi nationOrdered By: Christine Damon on 10-17-2024 Platelet mean volume (Bld) [Entitic vol] 9.8 fL 6.2-12.0 [facility] Monocyte percentageOrdered B y: Christine Damon on 10-17-2024 Monocytes/100 WBC (Bld) 7.8 % 0-10 [facility] Neutrophil percentageOrdered By: Christine Damon on 10-17-2024 Neutrophils/100 WBC (Bld) 58.5 % 47-70 [facility] Nucleated red blood cell per centageOrdered By: Christine Damon on 10-17-2024 Nucleated RBC/100 WBC (Bld) [Ratio] 0 % 0-5 [facility] Platelet countOrdered By: Ebenezer Damon on 10-17-2024 Platelets (Bld) [#/Vol] 269 10*3/uL 150-450 [facility] Potassium measurementOrdered By: Christine Damon on 10-17-2024 Potassium [Moles/Vol] 4.3 mmol/L 3.5-5.1 [facility] RBC Auto (Bld) [#/Vol]Ordere d By: Christine Damon on 10-17-2024 RBC (Bld) [#/Vol] 4.94 10*6/uL 4.6-6.2 [facility] Serum anion gap measurementO rdered By: Christine Damon on 10-17-2024 Anion gap [Moles/Vol] 8 mmol/L 5-15 [facility] Serum globulin measurementOr dered By: Christine Damon on 10-17-2024 Globulin (S) [Mass/Vol] 3.6 g/dL 2.2-4.2 [facility] Serum or plasma alanine wagoner otransferase (ALT) measurementOrdered By: Christine Damon on 10-17-2024 ALT [Catalytic activity/Vol] 41 U/L 16-61 [facility] Serum or plasma albumin álvaro urement (mass/volume)Ordered By: Christine Damon on 10-17-2024 Albumin [Mass/Vol] 3.5 g/dL 3.2-5.[address] [facility] Serum or plasma alkaline schuyler sphatase measurementOrdered By: Christine Damon on 10-17-2024 ALP [Catalytic activity/Vol] 44 U/L Low 45-117 [facility] Serum or plasma calcium álvaro urement (mass/volume)Ordered By: Christine Damon on 10-17-2024 Calcium [Mass/Vol] 9.4 mg/dL 8.5-10.[address] [facility] Serum or plasma cholesterol measurement (mass/volume)Ordered By: Christine Damon on 10-17-2024 Cholesterol [Mass/Vol] 142 mg/dL <200 [facility] Comment on above: <200 mg/dL Desirable 200-240 mg/dL Borderline >240 mg/dL High Risk Serum or plasma creatinine m easurement (mass/volume)Ordered By: Christine Damon on 10-17-2024 Creatinine [Mass/Vol] 1.36 mg/dL High 0.70-1.30 [facility] Comment on above: The validity of the calculated GFR & GFRAA in patients over 70 years has not been determined. Clinical correlation is essential. Serum or plasma thyroid stim ulating hormone (TSH) measurement (units/volume)Ordered By: Christine Damon on 10-17-2024 TSH Qn 2.130 uIU/mL 0.358-3.74 0 [facility] Serum or plasma urea nitroge n measurement (mass/volume)Ordered By: Christine Damon on 10-17-2024 Urea nitrogen [Mass/Vol] 26 mg/dL High 7-18 [facility] Sodium levelOrdered By: Shubham Damon on 10-17-2024 Sodium [Moles/Vol] 132 mmol/L Low 136-[address] [facility] TSH QnOrdered By: Christine streeter on 10-17-2024 Thyroid Stimulating Hormone (TSH) 2.130 uIU/mL 0.358-3.74 0 [facility] Thyroid Stim Hormone (TSH)on 10-17-2024 TSH 2.130 uIU/mL Normal 0.358-3.74 0 [facility] Comment on above: Order Comment: 402.2 Performed By: #### L 100.0500, L500.2500 #### [facility] [address] [place], [place], [id number] Total proteinOrdered By: Ching Damon on 10-17-2024 Protein [Mass/Vol] 7.1 g/dL 6.4-8.[address] [facility] Triglycerides measurementOrd ered By: Christine Damon on 10-17-2024 Triglyceride [Mass/Vol] 318 mg/dL High <199 [facility] Comment on above: The drugs N-Acetylcy steine and Metamizole may falsely depress this assay.Serum Triglycerides Reference Interval Normal <150 mg/dL Borderline high 150 - 199 mg/dL High 200 - 499 mg/dL Very High > or = 500 mg/dL Very low density lipoprotein (VLDL) cholesterol measurementOrdered By: Christine Damon on 10-17-2024 Very low density lipoprotein (VLDL) cholesterol measurement 64 mg/dL High 5-40 [facility] VLDL Cholesterol 64 mg/dL High 5-40 [facility] Vitamin B12on 10-17-2024 Cobalamin (Vitamin B12) [Mass/Vol] 928 pg/mL High 211-911 [facility] Comment on above: Order Comment: 402-2 Performed By: #### L 501.9520, L500.4100, L503.0105, L500.4050, L506.1000, L501.9985, L100.0100 #### [facility] [address] [place], [place], [id number] Vitamin B12 measurementOrder ed By: Christine Damon on 10-17-2024 Cobalamin (Vitamin B12) [Mass/Vol] 928 pg/mL High 211-911 [facility] Vitamin D,25 Hydroxyon 10-17 Vitamin D 25-OH 59.6 ng/mL Normal [facility] Comment on above: Order Comment: 402-2 Result Comment: Yaima min D 25(OH) Status Range Deficiency <20 ng/mL (50nmol/L) Insufficiency 20 - 30 ng/mL (50 - 75 nmol/L) Sufficiency 30 - 100 ng/mL (75 - 250 nmol/L) Toxicity >100 ng/mL (>250 nmol/L) Performed By: #### L 501.9520, L500.4100, L503.0105, L500.4050, L506.1000, L501.9985, L100.0100 #### [facility] [address] [place], [address] White blood cell (WBC) count Ordered By: Christine Damon on 10-17-2024 WBC (Bld) [#/Vol] 6.6 10*3/uL 4.4-11.[address] [facility] CNOVon 08-08-2024 CNOV Office Visit (ORTHWS ) JOHN REAL ([id number]) 1955 M Date Time Provider Department 08/08/24 10:30 AM YOLA LUZ During your visit today, we recorded the following information about you: Rama Jefferson LPN 08/08/2024 12:53 PM Signed AMB ROOMING INTAKE FLOWSHEET DATA Yola Luz PA-C 08/08/2024 12:53 PM Signed Large Joint Arthro/Inj: L knee joint Informed Consent Consent Obtained: Verbal [place] Protocol A moment to CARE was completed. SIGN IN Sign in communication not applicable due to emergent procedure. Personnel directly involved with the procedure wore the appropriate PPE. Special Equipment: N/A Patient/Surrogate Stated/Verified: Patient name, Date of , Relevant allergies and Intended procedure TIME OUT Intended patient and procedure match the source document(s). Consent documented and matches the intended procedure. Relevant labs, photos, and/or imaging studies have been reviewed. Correct side/site marked and visible. Medications required for procedure verified. No fire risk assessment and interventions applicable. No implant(s) inserted. 08/08/2024 12:53 PM The procedure site was prepped in the usual sterile fashion. Site: L knee joint Medications: 6 mg betamethasone acetate-betamethasone sodium phosphate 6 mg/mL Anesthetics: 5 mL lidocaine (PF) 10 mg/mL (1 %) Outcome: Tolerated well, no immediate complications Post-injection instructions were reviewed with the patient and the patient voiced understanding of these instructions. SIGN OUT No specimen collected. All instruments, equipment, possible retained foreign bodies accounted for. Post-procedure follow-up management communicated and Plan of Care Visit completed when applicable Yola Luz PA-C 08/09/2024 1:56 PM Signed Routine left knee corticosteroid injection. Patient can follow-up for repeat left knee injection as needed, but no sooner than 91 days from today's date. Referring Provider: YOLA LUZ [[id number]] Allergies As of Date: 08/08/2024 (No Known Allergies) Date Reviewed: 05/11/2024 Reviewed by: Benjamin Ramon MD - Fully Assessed Primary Visit Diagnosis:Primary osteoarthritis of left knee [M17.12] Order(s):Large Joint Arthro/Inj: L knee joint [[id number]] Order #: [id number] [] betamethasone acetate-betamethasone sodium phosphate 6 mg injection (CELESTONE)Disp: Rfl: [] lidocaine (PF) 10 mg/mL (1 %) 5 mL injection (XYLOCAINE)Disp: Rfl: Prescriptions as of 08/09/2024 - fluticasone (FLONASE) 50 mcg/actuation nasal spray Use 2 Sprays in each nostril once daily. Rinse mouth after use. - glimepiride (AMARYL) 4 mg tablet Take 1 tablet by mouth two times a day with meals. - empagliflozin (JARDIANCE) 25 mg tablet Take 1 tablet by mouth once daily. Take 1 tablet once daily in the morning - atorvastatin (LIPITOR) 80 mg tablet Take 1 tablet by mouth once daily. - Fenofibrate (LOFIBRA) 160 mg tablet Take 1 tablet by mouth once daily. - pioglitazone (ACTOS) 45 mg tablet Take 1 tablet by mouth once daily. - metFORMIN ER (GLUCOPHAGE XR) 500 mg 24 hr tablet TAKE TWO TABLETS BY MOUTH TWICE DAILY WITH MEALS - cyanocobalamin (VITAMIN B-12) 1,000 mcg tab Take 1 tablet by mouth once daily. - lisinopril (ZESTRIL) 20 mg tablet Take 1 tablet by mouth once daily. - Cholecalciferol, Vitamin D3, 50 mcg (2,000 unit) cap Take 2 capsules by mouth once daily. - cetirizine (ZYRTEC) 10 mg tablet Take 1 tablet by mouth once daily. - omega-3 fatty acids (FISH OIL CONCENTRATE) 1,000 mg cap Take 2 capsules by mouth twice daily. - blood sugar diagnostic (BLOOD GLUCOSE TEST) test strip Test blood sugar(s) 2 times daily. Dx: Type 2 DM - Uncontrolled E11.65 Insulin: No - Lancets lancets Test blood sugar(s) 2 times daily. Dx: Type 2 DM - Uncontrolled E11.65 Insulin: No Problem List As Of Date 08/08/2024 Noted Resolved Cervical pain [M54.2] Thoracic back pain [M54.6] Lumbar pain [M54.50] Spermatocele of epididymis, left [N43.40] 12/16/2013 Hydrocele, left [N43.3] 12/16/2013 Elevated fasting blood sugar [R73.01] 08/21/2014 05/01/2015 Scar tissue [L90.5] 12/28/2014 Encounter for Medicare annual wellness exam [Z0*05/01/2015 Gastroesophageal reflux disease without esophag*05/01/2015 Foot callus [L84] 05/01/2015 Mixed hyperlipidemia [E78.2] 07/31/2015 Prostate disorder [N42.9] 07/31/2015 Elevated LFTs [R79.89] 08/06/2015 05/22/2020 Controlled type 2 diabetes mellitus without com*10/22/2016 Diabetic eye exam (HCC) [Z01.00, E11.9] 02/24/2017 Screening for colon cancer [Z12.11] 02/24/2017 Essential hypertension [I10] 11/03/2017 Tear of medial meniscus of left knee, current [*04/20/2018 Vitamin B12 deficiency [E53.8] 04/18/2019 Vitamin D deficiency [E55.9] 10/10/2020 Skin ulcer, stage 3 (HCC) [L98.499] 10/10/2020 05/08/2022 Uncontrolled typ (more content not included)... Normal [place] Large Joint Arthro/Inj: L kn ee jointon 08-08-2024 Yola Luz PA -C 08/08/2024 12:53 PM Large Joint Arthro/Inj: L knee joint Informed Consent Consent Obtained: Verbal [place] Protocol A moment to CARE was completed. SIGN IN Sign in communication not applicable due to emergent procedure. Personnel directly involved with the procedure wore the appropriate PPE. Special Equipment: N/A Patient/Surrogate Stated/Verified: Patient name, Date of , Relevant allergies and Intended procedure TIME OUT Intended patient and procedure match the source document(s). Consent documented and matches the intended procedure. Relevant labs, photos, and/or imaging studies have been reviewed. Correct side/site marked and visible. Medications required for procedure verified. No fire risk assessment and interventions applicable. No implant(s) inserted. 08/08/2024 12:53 PM The procedure site was prepped in the usual sterile fashion. Site: L knee joint Medications: 6 mg betamethasone acetate-betamethasone sodium phosphate 6 mg/mL Anesthetics: 5 mL lidocaine (PF) 10 mg/mL (1 %) Outcome: Tolerated well, no immediate complications Post-injection instructions were reviewed with the patient and the patient voiced understanding of these instructions. SIGN OUT No specimen collected. All instruments, equipment, possible retained foreign bodies accounted for. Post-procedure follow-up management communicated and Plan of Care Visit completed when applicable [facility] XR KNEE 4V AP/PA BOTH+LAT/ME R LTon 08-08-2024 XR KNEE 4V AP/PA BOTH+LAT/KY LT * * *Final Report* * * DATE OF EXAM: Aug 08 2024 10:23AM WRX 5202 - XR KNEE 4V AP/PA BOTH+LAT/KY LT / PROCEDURE REASON: Left knee pain, unspecified chronicity * * * * Physician Interpretation * * * * EXAMINATION / TECHNIQUE: XR KNEE 4V AP/PA BOTH+LAT/KY LT PATIENT/TECHNOLOGIST PROVIDED HISTORY: PT STATES LEFT KNEE PAIN REQUESTING INJ CLINICAL INFORMATION ( PROVIDED BY ORDERING CLINICIAN) : Left knee pain, unspecified chronicity COMPARISON: RESULT: Left knee: Medial Compartment: Subjective: Severe degenerative changes. KL Grade 4: Large osteophytes, marked JSN, severe sclerosis and/or definite bony deformity. Lateral Compartment: Subjective: Mild degenerative changes. KL Grade 2: Definite osteophytes and/or possible joint space narrowing. Patellofemoral Compartment: Subjective: Mild degenerative changes. KL Grade 2: Definite osteophytes and/or possible joint space narrowing. Other: No acute fracture or dislocation. Right knee is unremarkable. IMPRESSION: Severe left knee medial compartment osteoarthritis. Sensor Specialist: PSCB Transcribe Date/Time: Aug 11 2024 11:25P Dictated by : PAOLA RUSSELL MD This examination was interpreted and the report reviewed and electronically signed by: PAOLA RUSSELL MD on Aug 11 2024 11:25PM EST [id number] Normal [place] Basic Metabolic Profile (BMP )on 07-14-2024 BUN/CRE 17.6 RATIO Normal - [facility] Comment on above: Order Comment: 402.2 Performed By: #### L 100.0500, L500.2500 #### [facility] [address] [place], [address] CA,Total 9.6 mg/dL Normal 8.5-10.1 [facility] Comment on above: Order Comment: 402.2 Performed By: #### L 100.0500, L500.2500 #### [facility] [address] [place], [address] Chloride [Moles/Vol] 107 mmol/L Normal 98-107 [facility] Comment on above: Order Comment: 402.2 Performed By: #### L 100.0500, L500.2500 #### [facility] [address] [place], [address] CO2 [Moles/Vol] 29.0 mmol/L Normal 21.0-32.0 [facility] Comment on above: Order Comment: 402.2 Performed By: #### L 100.0500, L500.2500 #### [facility] [address] [place], [address] Creatinine [Mass/Vol] 1.36 mg/dL High 0.70-1.30 [facility] Comment on above: Order Comment: 402.2 Result Comment: The validity of the calculated GFR GFRAA in patients over 70 years has not been determined. Clinical correlation is essential. Performed By: #### L 100.0500, L500.2500 #### [facility] [address] [place], [address] EST GFR - AA 67 mL/min Normal >60 [facility] Comment on above: Order Comment: 402.2 Result Comment: Afri can [place] GFR Calc Performed By: #### L 100.0500, L500.2500 #### [facility] [address] [place], [address] GAP 3 Low 5-15 [facility] Comment on above: Order Comment: 402.2 Performed By: #### L 100.0500, L500.2500 #### [facility] [address] [place], [address] GFR/1.73 sq M.predicted among non-blacks MDRD (S/P/Bld) [Vol rate/Area] 55 mL/min/{1.73_m2} Low >60 [facility] Comment on above: Order Comment: 402.2 Result Comment: Non- GFR Calc Performed By: #### L 100.0500, L500.2500 #### [facility] [address] [place], [address] Glucose [Mass/Vol] 68 mg/dL Low 74-[address] [facility] Comment on above: Order Comment: 402.2 Performed By: #### L 100.0500, L500.2500 #### [facility] [address] [place], [address] Potassium [Moles/Vol] 4.1 mmol/L Normal 3.5-5.1 [facility] Comment on above: Order Comment: 402.2 Performed By: #### L 100.0500, L500.2500 #### [facility] [address] [place], [address] Sodium [Moles/Vol] 138 mmol/L Normal 136-[address] [facility] Comment on above: Order Comment: 402.2 Performed By: #### L 100.0500, L500.2500 #### [facility] [address] [place], [address] Urea nitrogen [Mass/Vol] 24 mg/dL High 7-18 [facility] Comment on above: Order Comment: 402.2 Performed By: #### L 100.0500, L500.2500 #### [facility] [address] [place], [address] CBC-Complete Blood Cnt No Di ffon 07-14-2024 Erythrocyte distribution width (RBC) [Ratio] 13.4 % Normal 11.6-14.6 [facility] Comment on above: Order Comment: 402.2 Performed By: #### L 100.0500, L500.2500 #### [facility] [address] [place], [address] Hematocrit (Bld) [Volume fraction] 42.5 % Normal 40-54 [facility] Comment on above: Order Comment: 402.2 Performed By: #### L 100.0500,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 laterality, sequela Comment: 03/201804/09/2021: Uncontrolled type 2 diabetes mellitus with hyperglycemia ([facility]) 04/18/2019: Vitamin B12 deficiency 10/10/2020: Vitamin D deficiency Previous Surgical History PAST SURGICAL HISTORY 01/13/2014: COLONOSCOP (more content not included)... Normal [place] Comprehensive metabolic 2000 panelon 05-11-2024 Albumin [Mass/Vol] 4.3 g/dL Normal 3.9-4.9 [facility] Comment on above: Order Comment: Speci men Type: BLOOD SPECIMENOrdering Facility: [facility] Address: [address] [place] [address] Performed By: #### L IPNF, 2132-05, ####[facility] [id number] [facility] [id number] [address] [place] ALP [Catalytic activity/Vol] 43 U/L Normal 38-113 [place] Comment on above: Order Comment: Speci men Type: BLOOD SPECIMENOrdering Facility: [facility] Address: [address] [place] [address] Performed By: #### L IPNF, ####[facility] [id number] [address] [address] [place] ALT [Catalytic activity/Vol] 21 U/L Normal 10-54 [place] Comment on above: Order Comment: Speci men Type: BLOOD SPECIMENOrdering Facility: [facility] Address: [address] [place] [address] Performed By: #### L IPNF, 2132-05, ####[facility] [id number] [address] [address] [place] Anion gap [Moles/Vol] 11 mmol/L Normal 8-15 [facility] Comment on above: Order Comment: Speci men Type: BLOOD SPECIMENOrdering Facility: [facility] Address: [address] [place] [address] Performed By: #### L IPNF, ####[facility] [id number] [place] [address] [place] AST [Catalytic activity/Vol] 19 U/L Normal 14-40 [place] Comment on above: Order Comment: Speci men Type: BLOOD SPECIMENOrdering Facility: [facility] Address: [address] [place] [address] Performed By: #### L IPNF, 2132-05, ####[facility] [id number] [place] [id number] [place] Bilirubin [Mass/Vol] 0.4 mg/dL Normal 0.2-1.3 [facility] Comment on above: Order Comment: Speci men Type: BLOOD SPECIMENOrdering Facility: [facility] Address: [address] [place] [address] Performed By: #### L IPNF, 2132-05, ####[facility] [id number] [place] [id number] [place] Calcium [Mass/Vol] 10.2 mg/dL Normal 8.5-10.2 [facility] Comment on above: Order Comment: Speci men Type: BLOOD SPECIMENOrdering Facility: [facility] Address: [address] [place] [address] Performed By: #### L IPNF, 2132-05, ####[facility] [id number] [place] [address] [place] Chloride [Moles/Vol] 100 mmol/L Normal 98-107 [facility] [place] Comment on above: Order Comment: Speci men Type: BLOOD SPECIMENOrdering Facility: [facility] Address: [address] [place] [address] Performed By: #### L IPNF, 2132-05, ####[facility] [id number] [place] [address] [place] CO2 [Moles/Vol] 24 mmol/L Normal 22-30 [place] Comment on above: Order Comment: Speci men Type: BLOOD SPECIMENOrdering Facility: [facility] Address: [address] [place] [address] Performed By: #### L IPNF, 2132-05, ####[facility] [id number] [place] [address] [place] Creatinine [Mass/Vol] 1.27 mg/dL High 0.73-1.22 [facility] Comment on above: Order Comment: Speci men Type: BLOOD SPECIMENOrdering Facility: [facility] Address: [address] [place] [address] Performed By: #### L IPNF, 2132-05, ####[facility] [id number] [place] [address] [place] Creatinine and Glomerular filtration rate.predicted panel (S/P/Bld) 62 mL/min/1.73m??? Normal >=60 [place] Comment on above: Order Comment: Cierra ellis Type: BLOOD SPECIMENOrdering Facility: [facility] Address: [address] [place] [address] Result Comment: Iza mated Glomerular Filtration Rate (eGFR) is calculated using the 2020 CKD-EPI creatinine equation. This equation utilizes serum creatinine, sex, and age as parameters. The creatinine assay has traceable calibration to isotope dilution-mass spectrometry. Refer to KDIGO guidelines for clinical interpretation. In patients with unstable renal function, e.g. those with acute kidney injury, the eGFR may not accurately reflect actual GFR. Performed By: #### L ALOK, 2132-05, ####[facility] [id number] [place] [address] [place] Glucose [Mass/Vol] 79 mg/dL Normal 74-99 [facility] Comment on above: Order Comment: Cierra ellis Type: BLOOD SPECIMENOrdering Facility: [facility] Address: [address] [place] [address] Result Comment: The [place] Diabetes Association (ADA) provides guidance for cutoff values for fasting glucose and random glucose. The ADA defines fasting as no caloric intake for at least 8 hours. Fasting plasma glucose results between 100 to 125 mg/dL indicate increased risk for diabetes (prediabetes). Fasting plasma glucose results greater than or equal to 126 mg/dL meet the criteria for diagnosis of diabetes. In the absence of unequivocal hyperglycemia, results should be confirmed by repeat testing. In a patient with classic symptoms of hyperglycemia or hyperglycemic crisis, random plasma glucose results greater than or equal to 200 mg/dL meet the criteria for diagnosis of diabetes. Reference: Standards of Medical Care in Diabetes 2016, [place] Diabetes Association. Diabetes Care. 2016.39(Suppl 1). Performed By: #### L ALOK, 2132-05, ####[facility] [id number] [place] [address] [place] Potassium [Moles/Vol] 4.6 mmol/L Normal 3.7-5.1 [facility] Comment on above: Order Comment: Speci men Type: BLOOD SPECIMENOrdering Facility: [facility] Address: [address] [place] [address] Performed By: #### L IPNF, 2132-05, ####[facility] [id number] [place] [address] [place] Protein [Mass/Vol] 7.5 g/dL Normal 6.3-8.0 [facility] Comment on above: Order Comment: Speci men Type: BLOOD SPECIMENOrdering Facility: [facility] Address: [address] [place] [address] Performed By: #### L IPNF, 2132-05, ####[facility] [id number] [place] [address] [place] Sodium [Moles/Vol] 135 mmol/L Low 136-144 [facility] Comment on above: Order Comment: Speci men Type: BLOOD SPECIMENOrdering Facility: [facility] Address: [address] [place] [address] Performed By: #### L IPNF, 2132-05, ####[facility] [id number] [place] [address] [place] Urea nitrogen [Mass/Vol] 26 mg/dL High 9-24 [place] Comment on above: Order Comment: Speci men Type: BLOOD SPECIMENOrdering Facility: [facility] Address: [address] [place] [address] Performed By: #### L IPNF, 2132-05, ####[facility] [id number] [place] [address] [place] HbA1c (Bld)on 05-11-2024 Average glucose Estimated from glycated hemoglobin (Bld) [Mass/Vol] 114 mg/dL Normal [place] Comment on above: Order Comment: Speci men Type: BLOOD SPECIMENOrdering Facility: [facility] Address: [address] [place] [address] Result Comment: eAG: (Estimated average glucose) is a calculated value from HgbA1c and is commercial pest control representative of the average blood glucose level in the last 2-3 month period. Performed By: #### 5 5454-3 ####[facility] [id number] [place] [address] [place] HbA1c (Bld) [Mass fraction] 5.6 % Normal 4.3-5.6 [place] Comment on above: Order Comment: Speci men Type: BLOOD SPECIMENOrdering Facility: [facility] Address: [address] [place] [address] Result Comment: [place] Diabetes Association guidelines indicate that patients with HgbA1c in the range 5.7-6.4% are at increased risk for development of diabetes, and intervention by lifestyle modification may be beneficial. HgbA1c greater or equal to 6.5% is considered diagnostic of diabetes. Performed By: #### 5 5454-3 ####[facility] [id number] [place] [address] [place] LIPID PANEL, NONFASTINGon Cholesterol [Mass/Vol] 136 mg/dL Normal <200 [facility] Comment on above: Order Comment: Nithyai men Type: BLOOD SPECIMENOrdering Facility: [facility] Address: [address] [place] [address] Result Comment: <200 mg/dL, Desirable 200-239 mg/dL, Borderline high >239 mg/dL, High Performed By: #### L IPNF, 2132-9, 73300-5 ####[facility] [id number] [place] [address] [place] HDL CHOLESTEROL, NF 36 mg/dL Low >39 [facility] Comment on above: Order Comment: Speci men Type: BLOOD SPECIMENOrdering Facility: [facility] Address: [address] [place] [address] Result Comment: 40-5 9 mg/dL, Acceptable >59 mg/dL, High: Negative risk factor for coronary heart disease <40 mg/dL, Low: Positive risk factor for coronary heart disease Performed By: #### L ALOK, 2132-05, ####[facility] [id number] [place] [address] [place] [facility] LDL CHOLESTEROL, NF 67 mg/dL Normal <100 [facility] Comment on above: Order Comment: Speci men Type: BLOOD SPECIMENOrdering Facility: [facility] Address: [address] [place] [address] Result Comment: <100 mg/dL, Optimal 100-129 mg/dL, Near optimal/above optimal 130-159 mg/dL, Borderline high 160-189 mg/dL, High >189 mg/dL, Very high Secondary prevention optimal LDL Cholesterol levels are recommended to be < 70 mg/dL Performed By: #### L ALOK, 2132-05, ####[facility] [id number] [address] [place] LDL/HDL RATIO, NF 1.86 mg/dL Normal <2.54 [facility] Comment on above: Order Comment: Speci men Type: BLOOD SPECIMENOrdering Facility: [facility] Address: [address] [place] [address] Result Comment: Refe rence: 1. National Cholesterol Education Program ATP III Guideline At-A-Glance Quick Desk Reference: National Heart, Lung, and Blood [place]. National Institutes of Health. 2001: NIH Publication No. 01-3305. 2. An International Atherosclerosis Society position paper: global recommendations for the management of dyslipidemia: executive summary, Atherosclerosis. 2014: 232(2):410-413. Performed By: #### L ALOK, 2132-05, ####[facility] [id number] [place] [address] [place] NON HDL CHOL, NF 100 mg/dL Normal <130 [facility] Comment on above: Order Comment: Speci men Type: BLOOD SPECIMENOrdering Facility: [facility] Address: [address] [place] [address] Result Comment: <130 mg/dL, Optimal 130-159 mg/dL, Near optimal/above optimal 160-189 mg/dL, Borderline high 190-219 mg/dL, High >219 mg/dL, Very high Secondary prevention optimal non HDL Cholesterol levels are recommended to be <100 mg/dL Performed By: #### L IPNF, 2132-05, ####[facility] [id number] [place] [address] [place] T CHOL/HDL RATIO NF 3.78 mg/dL Normal <5.10 [facility] Comment on above: Order Comment: Speci men Type: BLOOD SPECIMENOrdering Facility: [facility] Address: [address] [place] [address] Performed By: #### L IPALEN, 2132-05, ####[facility] [id number] [place] [address] [place] TRIGLYCERIDES, NF 163 mg/dL High <150 [facility] Comment on above: Order Comment: Speci men Type: BLOOD SPECIMENOrdering Facility: [facility] Address: [address] [place] [address] Result Comment: <150 mg/dL, Normal 150-199 mg/dL, Borderline high 200-499 mg/dL, High >499 mg/dL, Very high Performed By: #### L IPNF, 2132-05, ####[facility] [id number] [place] [address] [place] VLDL CHOLESTEROL, NF 33 mg/dL High <30 [facility] [place] Comment on above: Order Comment: Speci men Type: BLOOD SPECIMENOrdering Facility: [facility] Address: [address] [place] [address] Performed By: #### L IPNF, 2132-05, ####[facility] [id number] [place] [address] [place] PSA SerPl-mCncon 05-11-2024 Prostate specific Ag [Mass/Vol] 1.71 ng/mL Normal <2.60 [place] Comment on above: Order Comment: Speci men Type: BLOOD SPECIMENOrdering Facility: [facility] Address: [address] [place] [address] Result Comment: Tota l PSA test methodology used is the Electrochemiluminescence Immunoassay by [employer]. Total PSA values by differing methodologies cannot be interchanged. Performed By: #### 2 857-1 ####[facility]IA [id number] [place] [address] [place] Urinalysis complete panel (U )on 05-11-2024 Bacteria LM.HPF (Urine sed) [#/Area] Negative Normal Negative [place] Comment on above: Order Comment: Speci men Type: URINE SPECIMENOrdering Facility: [facility] Address: [address] [place] [address] Performed By: #### 2 4356-8 ####[facility] [id number] [place] [address] [place] Bilirubin Ql (U) Negative Normal Negative [facility] Comment on above: Order Comment: Speci men Type: URINE SPECIMENOrdering Facility: [facility] Address: [address] [place] [address] Performed By: #### 2 4356-8 ####[facility] [id number] [place] [address] [place] Clarity (Unsp spec) Clear Normal Clear [facility] Comment on above: Order Comment: Speci men Type: URINE SPECIMENOrdering Facility: [facility] Address: [address] [place] [address] Performed By: #### 2 4356-8 ####[facility] [id number] [place] [address] [place] Color (U) Yellow Normal Yellow [place] Comment on above: Order Comment: Speci men Type: URINE SPECIMENOrdering Facility: [facility] Address: [address] [place] [address] Performed By: #### 2 4356-8 ####[facility] LABCLIA [id number] [place] [address] [place] Epithelial cells LM.HPF (Urine sed) [#/Area] None Seen Normal [place] Comment on above: Order Comment: Speci men Type: URINE SPECIMENOrdering Facility: [facility] Address: [address] [place] [address] Performed By: #### 2 4356-8 ####[facility] LABCLIA [id number] [place] [address] [place] Glucose Test strip (U) [Mass/Vol] 3+ Abnormal Negative [place] Comment on above: Order Comment: Speci men Type: URINE SPECIMENOrdering Facility: [facility] Address: [address] [place] [address] Performed By: #### 2 4356-8 ####[facility] LABCLIA [id number] [place] [address] [place] Hemoglobin Ql (U) Negative Normal Negative [facility] Comment on above: Order Comment: Speci men Type: URINE SPECIMENOrdering Facility: [facility] Address: [address] [place] [address] Performed By: #### 2 4356-8 ####[facility] LABCLIA [id number] [place] [address] [place] Hyaline casts (Urine sed) [#/Area] 0 /[LPF] Normal 0 /LPF [place] Comment on above: Order Comment: Speci men Type: URINE SPECIMENOrdering Facility: [facility] Address: [address] [place] [address] Performed By: #### 2 4356-8 ####[facility] LABCLIA [id number] [place] [address] [place] Ketones Ql (U) Negative Normal Negative [place] Comment on above: Order Comment: Speci men Type: URINE SPECIMENOrdering Facility: [facility] Address: [address] [place] [address] Performed By: #### 2 4356-8 ####[facility] LABCLIA [id number] [place] [address] [place] Leukocyte esterase Test strip Ql (U) Negative Normal Negative [place] Comment on above: Order Comment: Speci men Type: URINE SPECIMENOrdering Facility: [facility] Address: [address] [place] [address] Performed By: #### 2 4356-8 ####[facility] LABIA [id number] [place] [address] [place] Nitrite Ql (U) Negative Normal Negative [place] Comment on above: Order Comment: Speci men Type: URINE SPECIMENOrdering Facility: [facility] Address: [address] [place] [address] Performed By: #### 2 4356-8 ####[facility] LABCLIA [id number] [place] [address] [place] pH (U) 7.0 [pH] Normal <8.5 [place] Comment on above: Order Comment: Speci men Type: URINE SPECIMENOrdering Facility: [facility] Address: [address] [place] [address] Performed By: #### 2 4356-8 ####[facility] LABIA [id number] [place] [address] [place] Protein (U) [Mass/Vol] Negative Normal Negative [facility] Comment on above: Order Comment: Speci men Type: URINE SPECIMENOrdering Facility: [facility] Address: [address] [place] [address] Performed By: #### 2 4356-8 ####[facility] LABIA [id number] [place] [address] [place] RBC LM.HPF (Urine sed) [#/Area] 0-2 /HPF Normal 0-2 /HPF [place] Comment on above: Order Comment: Speci men Type: URINE SPECIMENOrdering Facility: [facility] Address: [address] [place] [address] Performed By: #### 2 4356-8 ####[facility] [id number] [place] [address] [place] Specific gravity (U) [Rel density] 1.036 High 1.005-1.03 0 [place] Comment on above: Order Comment: Speci men Type: URINE SPECIMENOrdering Facility: [facility] Address: [address] [place] [address] Performed By: #### 2 4356-8 ####[facility] [id number] [place] [address] [place] Urobilinogen Ql (U) 1.0 EU/dL Normal 0.2-1.0 EU/dL [place] Comment on above: Order Comment: Speci men Type: URINE SPECIMENOrdering Facility: [facility] Address: [address] [place] [address] Performed By: #### 2 4356-8 ####[facility] LABIA [id number] [place] [address] [place] WBC LM.HPF (Urine sed) [#/Area] 0-5 /HPF Normal 0-5 /HPF [place] Comment on above: Order Comment: Speci men Type: URINE SPECIMENOrdering Facility: [facility] Address: [address] [place] [address] Performed By: #### 2 4356-8 ####[facility] LABIA [id number] [place] [address] [place] Vit B12 SerPl-ncon 14-2 024 Cobalamin (Vitamin B12) [Mass/Vol] 886 pg/mL Normal 232-1245 [place] Comment on above: Order Comment: Speci men Type: BLOOD SPECIMENOrdering Facility: [facility] Address: [address] [place] [address] Performed By: #### L IPNF, 2132-9, 66106-0 ####[facility] LABCLIA [id number] [address] [place] CNOVon 05-02-2024 CNOV Office Visit (ALIVIAWS ) JOHN REAL ([id number]) 1955 M Date Time Provider Department 05/02/24 10:30 AM YOLA LUZ During your visit today, we recorded the following information about you: Evelia Casey MA 05/02/2024 10:44 AM Signed AMB ROOMING INTAKE FLOWSHEET DATA Patient here today for 14 weeks post visit OA left knee with injection given. He would like another injection again today. He denies any pain. Yola Luz PA-C 05/02/2024 10:44 AM Addendum Yola Luz PA-C Department of Orthopaedics Orthopaedics [address] [place] [facility] [address] Dept: [phone] Dept May 02, 2024 CHIEF COMPLAINT: Established Patient and Follow Up of the Left Knee. ASSESSMENT: M17.12 Primary osteoarthritis of left knee (primary encounter diagnosis) SUMMARY/PLAN: Patient presents for repeat left knee corticosteroid injection, he has been receiving left knee injections every 91 days for several years. He finds the injections to be very beneficial. He denies any pain today. He states that the knee can be aggravating if he does walk long distances, the cortisone injection seems to help with that. Will proceed with a repeat injection today. Large Joint Arthro/Inj: L knee joint Informed Consent Consent Obtained: Verbal [place] Protocol A moment to CARE was completed. SIGN IN Sign in communication not applicable due to emergent procedure. Personnel directly involved with the procedure wore the appropriate PPE. Special Equipment: N/A Patient/Surrogate Stated/Verified: Patient name, Date of , Relevant allergies and Intended procedure TIME OUT Intended patient and procedure match the source document(s). Relevant labs, photos, and/or imaging studies have been reviewed. Correct side/site marked and visible. Medications required for procedure verified. No fire risk assessment and interventions applicable. No implant(s) inserted. 05/02/2024 10:44 AM The procedure site was prepped in the usual sterile fashion. Site: L knee joint Medications: 6 mg betamethasone acetate-betamethasone sodium phosphate 6 mg/mL Anesthetics: 4 mL lidocaine (PF) 10 mg/mL (1 %) Outcome: Tolerated well, no immediate complications Post-injection instructions were reviewed with the patient and the patient voiced understanding of these instructions. SIGN OUT All instruments, equipment, possible retained foreign bodies accounted for. Imaging: IMPRESSION: Stable degenerative change with no acute process seen. Sensor Specialist: SID Transcribe Date/Time: Nov 24 2022 2:38P Dictated by : JUANITA STUBBS MD This examination was interpreted and the report reviewed and electronically signed by: JUANITA STUBBS MD on Nov 24 2022 2:39PM EST Results-Findings * * *Final Report* * * DATE OF EXAM: Nov 24 2022 11:37AM WRX 5202 - XR KNEE 4V AP/PA BOTH+LAT/KY LT / PROCEDURE REASON: Left knee pain, unspecified chronicity * * * * Physician Interpretation * * * * History: Left knee pain FINDINGS: AP, PA, merchant views of both knees, and a lateral view of the left knee, have been obtained. Correlation is made with prior study of 06/18/2020 Images of the left knee demonstrate stable narrowing of the medial femoral tibial joint space with associated osteophyte formation. Lateral femoral tibial and femoral patellar joint spaces are maintained. Mild patellar spurring. No significant joint effusion. Images that include the right knee demonstrate no acute or destructive process. Mr. John Real was advised as to contrast therapies and/or to take analgesics/anti-inflammator ies as needed and all contraindications were reviewed. Supporting Information Below: Medications: Current Outpatient Medications Medication Sig fluticasone (FLONASE) 50 mcg/actuation nasal spray Use 2 Sprays in each nostril once daily. Rinse mouth after use. glimepiride (AMARYL) 4 mg tablet Take 1 tablet by mouth two times a day with meals. empagliflozin (JARDIANCE) 25 mg tablet Take 1 tablet by mouth once daily. Take 1 tablet once daily in the morning atorvastatin (LIPITOR) 80 mg tablet Take 1 tablet by mouth once daily. Fenofibrate (LOFIBRA) 160 mg tablet Take 1 tablet by mouth once daily. pioglitazone (ACTOS) 45 mg tablet Take 1 tablet by mouth once daily. metFORMIN ER (GLUCOPHAGE XR) 500 mg 24 hr tablet TAKE TWO TABLETS BY MOUTH TWICE DAILY WITH MEALS cyanocobalamin (VITAMIN B-12) 1,000 mcg tab Take 1 tablet by mouth once daily. lisinopril (ZESTRIL) 20 mg tablet Take 1 tablet by mouth once daily. Cholecalciferol, Vitamin D3, 50 mcg (2,000 unit) cap Take 2 capsules by mouth once daily. cetirizine (ZYRTEC) 10 mg tablet Take 1 tablet by mouth once daily. omega-3 fatty acids (FISH OIL CONCENTRATE) 1,000 mg cap Take 2 capsules by mouth twice daily. pen needle, (more content not included)... Normal [place] Large Joint Arthro/Inj: L kn ee jointon 05-02-2024 Yola Luz PA -C 05/02/2024 10:44 AM Large Joint Arthro/Inj: L knee joint Informed Consent Consent Obtained: Verbal [place] Protocol A moment to CARE was completed. SIGN IN Sign in communication not applicable due to emergent procedure. Personnel directly involved with the procedure wore the appropriate PPE. Special Equipment: N/A Patient/Surrogate Stated/Verified: Patient name, Date of , Relevant allergies and Intended procedure TIME OUT Intended patient and procedure match the source document(s). Relevant labs, photos, and/or imaging studies have been reviewed. Correct side/site marked and visible. Medications required for procedure verified. No fire risk assessment and interventions applicable. No implant(s) inserted. 05/02/2024 10:44 AM The procedure site was prepped in the usual sterile fashion. Site: L knee joint Medications: 6 mg betamethasone acetate-betamethasone sodium phosphate 6 mg/mL Anesthetics: 4 mL lidocaine (PF) 10 mg/mL (1 %) Outcome: Tolerated well, no immediate complications Post-injection instructions were reviewed with the patient and the patient voiced understanding of these instructions. SIGN OUT All instruments, equipment, possible retained foreign bodies accounted for. [facility] Bedside Glucoseon 02-15-2024 FINGERSTICK GLU 86 mg/dL Normal 74-106 [facility] Comment on above: Result Comment: KARTIK GEMENT OF PATIENT CARE PER NURSING PROTOCOL Performed By: #### L 100.0500, L500.2500 #### [facility] [address] [place], [address] FINGERSTICK GLU 55 mg/dL Low 74-106 [facility] Comment on above: Result Comment: KARTIK GEMENT OF PATIENT CARE PER NURSING PROTOCOL Performed By: #### L 501.080 #### [facility] [address] [place], [address] Lumbar Spine 2 or 3 Viewson 02-15-2024 Lumbar Spine 2 or 3 Views [facility] Imaging Services [address] [place] [address] Lumbar Spine 2 or 3 Views MR#: [id number] Acct: [id number] Name: JOHN REAL Rep #: [id number] : 1955 M 68 From: Markell Mchugh MD PCP: Dr. Benjamin Ramon MD Status: [place]P [facility] [place] Study: Lumbar Spine 2 or 3 Views Date of Exam: Exam# [id number] Ordering Dr: Benjamin Arciniega MD [id number] EXAM: FL FLUOROSCOPY < 1 HOUR CLINICAL INDICATION: LEFT LUMBAR RADIO FREQUENCY ABLATION L4,L5,S1 TECHNIQUE: Fluoroscopic images performed in multiple projections. COMPARISON: No relevant prior studies available. FINDINGS: The total of 7 fluoroscopic images of the lumbar spine obtained during placement of needle localization at L3, L4 and L5. 10 seconds of fluoroscopy utilized. Total dose of 4.7 mGy. See operative note for additional information. RAD/Lumbar Spine 2 or 3 Views IMPRESSION: As above. Electronically Signed: Markell Mchugh MD at 11:33 EDT , CC: Dr. Benjamin Ramon MD; Dr. Benjamin Arciniega MD Sensor Specialist: Signed Normal [facility] Operative Reporton 4 Operative Report [facility] Medical Records Department [address] [place] [address] Operative Report 02/15/24 0917 MR#: [id number] Acct: [id number] Name: JOHN REAL Rep #: [id number] : 1955 68 From: Benjamin Arciniega MD PCP: Dr.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 unit) cap Take 2 capsules by mouth once daily. cetirizine (ZYRTEC) 10 mg tablet Take 1 tablet by mouth once daily. omega-3 fatty acids (FISH OIL CONCENTRATE) 1,000 mg cap Take 2 capsules by mouth twice daily. fluticasone (FLONASE) 50 mcg/actuation nasal spray Use 2 Sprays in each nostril once daily. Rinse mouth after use. pen needle, diabetic 32 gauge x 1/6" Use one needle with each injection once a day. Dx: E11.65 on insulin (Patient not taking: No sig reported) blood sugar diagnostic (BLOOD GLUCOSE TEST) test strip Test blood sugar(s) 2 times daily. Dx: Type 2 DM - Uncontrolled E11.65 Insulin: No Lancets lancets Test blood sugar(s) 2 times daily. Dx: Type 2 DM - Uncontrolled E11.65 Insulin: No No current facility-administered medications on file prior to visit. Social History Social History Tobacco Use Smoking status: Former Types: Cigarettes Quit date: 06/24/2015 Years since quittin.4 Smokeless tobacco: Never Tobacco comments: quit in 2012 Vaping Use Vaping Use: Never used Substance Use Topics Alcohol use: Yes Comment: very light Drug use: No Review of Symptoms REVIEW OF SYSTEMS See HPI EXAM: BP 130/80 Pulse 66 Resp 16 Wt 96.6 kg (213 lb) BMI 32.15 kg/m? General Appearance: Well appearing, alert, in no acute distress, well-hydrated, well nourished.. Lungs: Lungs clear to auscultation. No wheezing, rhonchi, rales.. Heart: RRR without murmur, gallop, or rubs. No ect (more content not included)... Normal [place] Comprehensive metabolic 2000 panelon 12-10-2023 Albumin [Mass/Vol] 4.5 g/dL Normal 3.9-4.9 [facility] Comment on above: Order Comment: Cierra ellis Type: BLOOD SPECIMEN Ordering Facility: [facility] Address: [address] [place] [address] Performed By: #### 2 132-9, 55596-8, LIPNF #### [facility] CLIA [id number] [address] [place], [place] [address] [address] [place] ALP [Catalytic activity/Vol] 50 U/L Normal 38-113 [place] Comment on above: Order Comment: Cierra men Type: BLOOD SPECIMEN Ordering Facility: [facility] Address: [address] [place] [address] Performed By: #### 2 132-9, 56151-4, LIPNF #### [facility] CLIA [id number] [address] [place] [address] [place] ALT [Catalytic activity/Vol] 18 U/L Normal 10-54 [place] Comment on above: Order Comment: Speci men Type: BLOOD SPECIMEN Ordering Facility: [facility] Address: [address] [place] [address] Performed By: #### 2 132-9, 82536-8, LIPNF #### [facility] CLIA [id number] [address] [place] [address] [place] Anion gap [Moles/Vol] 11 mmol/L Normal 9-18 [facility] Comment on above: Order Comment: Speci men Type: BLOOD SPECIMEN Ordering Facility: [facility] Address: [address] [place] [address] Performed By: #### 2 132-9, 92664-8, LIPNF #### [facility] CLIA [id number] [address] [place] [address] [place] AST [Catalytic activity/Vol] 19 U/L Normal 14-40 [place] Comment on above: Order Comment: Speci men Type: BLOOD SPECIMEN Ordering Facility: [facility] Address: [address] [place] [address] Performed By: #### 2 132-9, 52767-3, LIPNF #### [facility] CLIA [id number] [address] [place] [address] [place] Bilirubin [Mass/Vol] 0.4 mg/dL Normal 0.2-1.3 [facility] Comment on above: Order Comment: Speci men Type: BLOOD SPECIMEN Ordering Facility: [facility] Address: [address] [place] [address] Performed By: #### 2 132-9, 89937-1, LIPNF #### [facility] CLIA [id number] [address] [place] [address] [place] Calcium [Mass/Vol] 10.5 mg/dL High 8.5-10.2 [facility] Comment on above: Order Comment: Speci men Type: BLOOD SPECIMEN Ordering Facility: [facility] Address: [address] [place] [address] Performed By: #### 2 132-9, 21123-5, LIPNF #### [facility] CLIA [id number] [address] [place] [address] [place] Chloride [Moles/Vol] 101 mmol/L Normal 97-105 [facility] Comment on above: Order Comment: Speci men Type: BLOOD SPECIMEN Ordering Facility: [facility] Address: [address] [place] [address] Performed By: #### 2 132-9, 82298-0, LIPNF #### [facility] CLIA [id number] [address] [place] [address] [place] CO2 [Moles/Vol] 26 mmol/L Normal 22-30 [place] Comment on above: Order Comment: Speci men Type: BLOOD SPECIMEN Ordering Facility: [facility] Address: [address] [place] [address] Performed By: #### 2 132-9, 62741-6, LIPNF #### [facility] CLIA [id number] [address] [place] [address] [place] Creatinine [Mass/Vol] 1.39 mg/dL High 0.73-1.22 [facility] Comment on above: Order Comment: Speci men Type: BLOOD SPECIMEN Ordering Facility: [facility] Address: [address] [place] [address] Performed By: #### 2 132-9, 72639-4, LIPNF #### [facility] CLIA [id number] [address] [place] [address] [place] Creatinine and Glomerular filtration rate.predicted panel (S/P/Bld) 55 mL/min/1.73m??? Low >=60 [place] Comment on above: Order Comment: Cierra ellis Type: BLOOD SPECIMEN Ordering Facility: [facility] Address: [address] [place] [address] Result Comment: Iza mated Glomerular Filtration Rate (eGFR) is calculated using the 2020 CKD-EPI creatinine equation. This equation utilizes serum creatinine, sex, and age as parameters. The creatinine assay has traceable calibration to isotope dilution-mass spectrometry. Refer to KDIGO guidelines for clinical interpretation. In patients with unstable renal function, e.g. those with acute kidney injury, the eGFR may not accurately reflect actual GFR. Performed By: #### 2 132-9, 09461-9, LIPNF #### [facility] CLIA [id number] [address] [place] [address] [place] Glucose [Mass/Vol] 108 mg/dL High 74-99 [facility] Comment on above: Order Comment: Cierra ellis Type: BLOOD SPECIMEN Ordering Facility: [facility] Address: [address] [place] [address] Result Comment: The [place] Diabetes [employer] (ADA) provides guidance for cutoff values for fasting glucose and random glucose. The ADA defines fasting as no caloric intake for at least 8 hours. Fasting plasma glucose results between 100 to 125 mg/dL indicate increased risk for diabetes (prediabetes). Fasting plasma glucose results greater than or equal to 126 mg/dL meet the criteria for diagnosis of diabetes. In the absence of unequivocal hyperglycemia, results should be confirmed by repeat testing. In a patient with classic symptoms of hyperglycemia or hyperglycemic crisis, random plasma glucose results greater than or equal to 200 mg/dL meet the criteria for diagnosis of diabetes. Reference: Standards of Medical Care in Diabetes 2016, [place] [employer]. Diabetes Care. 2016.39(Suppl 1). Performed By: #### 2 132-9, 75839-1, LIPNF #### [facility] CLIA [id number] [address] [place] [address] [place] Potassium [Moles/Vol] 5.1 mmol/L Normal 3.7-5.1 [facility] Comment on above: Order Comment: Speci men Type: BLOOD SPECIMEN Ordering Facility: [facility] Address: [address] [place] [address] Performed By: #### 2 132-9, 86150-8, LIPNF #### [facility] CLIA [id number] [address] [place] [address] [place] Protein [Mass/Vol] 7.5 g/dL Normal 6.3-8.0 [facility] Comment on above: Order Comment: Speci men Type: BLOOD SPECIMEN Ordering Facility: [facility] Address: [address] [place] [address] Performed By: #### 2 132-9, 01867-1, LIPNF #### [facility] CLIA [id number] [address] [place] [address] [place] Sodium [Moles/Vol] 138 mmol/L Normal 136-144 [facility] Comment on above: Order Comment: Speci men Type: BLOOD SPECIMEN Ordering Facility: [facility] Address: [address] [place] [address] Performed By: #### 2 132-9, 82733-1, LIPNF #### [facility] CLIA [id number] [address] [place] [address] [place] Urea nitrogen [Mass/Vol] 26 mg/dL High 9-24 [place] Comment on above: Order Comment: Speci men Type: BLOOD SPECIMEN Ordering Facility: [facility] Address: [address] [place] [address] Performed By: #### 2 132-9, 13767-2, LIPNF #### [facility] CLIA [id number] [address] [place] [address] [place] HbA1c (Bld)on 12-10-2023 Average glucose Estimated from glycated hemoglobin (Bld) [Mass/Vol] 166 mg/dL Normal [place] Comment on above: Order Comment: Speci men Type: BLOOD SPECIMENOrdering Facility: [facility] Address: [address] [place] [address] Result Comment: eAG: (Estimated average glucose) is a calculated value from HgbA1c and is commercial pest control representative of the average blood glucose level in the last 2-3 month period. Performed By: #### 5 5454-3 ####[facility] [id number] [place] [address] [place] HbA1c (Bld) [Mass fraction] 7.4 % High 4.3-5.6 [place] Comment on above: Order Comment: Speci men Type: BLOOD SPECIMENOrdering Facility: [facility] Address: [address] [place] [address] Result Comment: Amer ican Diabetes Association guidelines indicate that patients with HgbA1c in the range 5.7-6.4% are at increased risk for development of diabetes, and intervention by lifestyle modification may be beneficial. HgbA1c greater or equal to 6.5% is considered diagnostic of diabetes. Performed By: #### 5 5454-3 ####[facility] [id number] [place] [address] [place] LIPID PANEL, NONFASTINGon Cholesterol [Mass/Vol] 140 mg/dL Normal <200 [facility] Comment on above: Order Comment: Cierra men Type: BLOOD SPECIMEN Ordering Facility: [facility] Address: [address] [place] [address] Result Comment: <200 mg/dL, Desirable 200-239 mg/dL, Borderline high >239 mg/dL, High Performed By: #### 2 132-9, 86599-9, LIPNF #### [facility] CLIA [id number] [address] [place] [address] [place] HDL CHOLESTEROL, NF 34 mg/dL Low >39 [facility] Comment on above: Order Comment: Nithyai men Type: BLOOD SPECIMEN Ordering Facility: [facility] Address: [address] [place] [address] Result Comment: 40-5 9 mg/dL, Acceptable >59 mg/dL, High: Negative risk factor for coronary heart disease <40 mg/dL, Low: Positive risk factor for coronary heart disease Performed By: #### 2 132-9, 33962-0, LIPNF #### [facility] CLIA [id number] [address] [place] [address] [place] LDL CHOLESTEROL, NF 75 mg/dL Normal <100 [facility] Comment on above: Order Comment: Cierra ellis Type: BLOOD SPECIMEN Ordering Facility: [facility] Address: [address] [place] [address] Result Comment: <100 mg/dL, Optimal 100-129 mg/dL, Near optimal/above optimal 130-159 mg/dL, Borderline high 160-189 mg/dL, High >189 mg/dL, Very high Secondary prevention optimal LDL Cholesterol levels are recommended to be < 70 mg/dL Performed By: #### 2 132-9, 41545-3, LIPNF #### [facility] CLIA [id number] [address] [place] [address] [place] LDL/HDL RATIO, NF 2.21 mg/dL Normal <2.54 [facility] Comment on above: Order Comment: Cierra ellis Type: BLOOD SPECIMEN Ordering Facility: [facility] Address: [address] [place] [address] Result Comment: Refe rence: 1. National Cholesterol Education Program ATP III Guideline At-A-Glance Quick Desk Reference: National Heart, Lung, and Blood [place]. National Institutes of Health. 2001: NIH Publication No. 01-3305. 2. An International Atherosclerosis Society position paper: global recommendations for the management of dyslipidemia: executive summary, Atherosclerosis. 2014: 232(2):410-413. Performed By: #### 2 132-9, 26269-6, LIPNF #### [facility] CLIA [id number] [address] [place] [address] [place] NON HDL CHOL, NF 106 mg/dL Normal <130 [facility] Comment on above: Order Comment: Speci men Type: BLOOD SPECIMEN Ordering Facility: [facility] Address: [address] [place] [address] Result Comment: <130 mg/dL, Optimal 130-159 mg/dL, Near optimal/above optimal 160-189 mg/dL, Borderline high 190-219 mg/dL, High >219 mg/dL, Very high Secondary prevention optimal non HDL Cholesterol levels are recommended to be <100 mg/dL Performed By: #### 2 132-9, 75069-2, LIPNF #### [facility] CLIA [id number] [address] [place] [address] [place] T CHOL/HDL RATIO NF 4.12 mg/dL Normal <5.10 [facility] Comment on above: Order Comment: Speci men Type: BLOOD SPECIMEN Ordering Facility: [facility] Address: [address] [place] [address] Performed By: #### 2 132-9, 70505-5, LIPNF #### [facility] CLIA [id number] [address] [place] [address] [place] TRIGLYCERIDES, NF 156 mg/dL High <150 [facility] Comment on above: Order Comment: Speci men Type: BLOOD SPECIMEN Ordering Facility: [facility] Address: [address] [place] [address] Result Comment: <150 mg/dL, Normal 150-199 mg/dL, Borderline high 200-499 mg/dL, High >499 mg/dL, Very high Performed By: #### 2 132-9, 84129-4, LIPNF #### [facility] CLIA [id number] [address] [place] [address] [place] VLDL CHOLESTEROL, NF 31 mg/dL High <30 [facility] Comment on above: Order Comment: Speci men Type: BLOOD SPECIMEN Ordering Facility: [facility] Address: [address] [place] [address] Performed By: #### 2 132-9, 53694-3, LIPNF #### [facility] CLIA [id number] [address] [place] [address] [place] VITAMIN D 25 HYDROXYon 12-09 25-hydroxyvitamin D3 [Mass/Vol] 37.3 ng/mL 31.0 - 80.0 ng/mL [facility] Vit B12 SerPl-mCncon 024 Cobalamin (Vitamin B12) [Mass/Vol] 661 pg/mL Normal 232-1245 [place] Comment on above: Order Comment: Speci men Type: BLOOD SPECIMEN Ordering Facility: [facility] Address: [address] [place] [address] Performed By: #### 2 132-9, 25840-7, LIPNF #### [facility] CLIA [id number] [address] [place] [address] [place] CBC W Auto Differential pane l (Bld)on 01-12-2023 Basophils (Bld) [#/Vol] 0.07 10*3/uL <0.11 k/uL [facility] Basophils/100 WBC (Bld) 1.0 % [facility] Differential cell count method Nom (Bld) Auto [facility] Eosinophils (Bld) [#/Vol] 0.15 10*3/uL <0.46 k/uL [facility] Eosinophils/100 WBC (Bld) 2.2 % [facility] Erythrocyte distribution width (RBC) [Ratio] 12.6 % 11.5 - 15.0 % [facility] Hematocrit (Bld) [Volume fraction] 48.2 % 39.0 - 51.0 % [facility] Hemoglobin (Bld) [Mass/Vol] 16.5 g/dL 13.0 - 17.0 g/dL [facility] Immature granulocytes (Bld) [#/Vol] <0.10 k/uL [facility] Immature granulocytes/100 WBC (Bld) 0.1 % [facility] Lymphocytes (Bld) [#/Vol] 1.46 10*3/uL 1.00 - 4.00 k/uL [facility] Lymphocytes/100 WBC (Bld) 21.7 % [facility] MCH (RBC) [Entitic mass] 30.6 pg 26.0 - 34.0 pg [facility] MCHC (RBC) [Mass/Vol] 34.2 g/dL 30.5 - 36.0 g/dL [facility] MCV (RBC) [Entitic vol] 89.4 fL 80.0 - 100.0 fL [facility] Monocytes (Bld) [#/Vol] 0.42 10*3/uL <0.87 k/uL [facility] Monocytes/100 WBC (Bld) 6.2 % [facility] Neutrophils (Bld) [#/Vol] 4.62 10*3/uL 1.45 - 7.50 k/uL [facility] Neutrophils/100 WBC (Bld) 68.8 % [facility] Nucleated RBC (Bld) [#/Vol] <0.01 k/uL [facility] Nucleated RBC/100 WBC (Bld) [Ratio] 0.0 /100 WBC [facility] Platelet mean volume (Bld) [Entitic vol] 11.5 fL 9.0 - 12.7 fL [facility] Platelets (Bld) [#/Vol] 229 10*3/uL 150 - 400 k/uL [facility] RBC (Bld) [#/Vol] 5.39 10*6/uL 4.20 - 6.00 m/uL [facility] WBC (Bld) [#/Vol] 6.73 10*3/uL 3.70 - 11.00 k/uL [facility] HbA1c (Bld)on 09-12-2022 Average glucose Estimated from glycated hemoglobin (Bld) [Mass/Vol] 183 mg/dL [facility] HbA1c (Bld) [Mass fraction] 8.0 % High 4.3 - 5.6 % [facility] Hepatic function 2000 panelo n 09-12-2022 Albumin [Mass/Vol] 4.6 g/dL 3.9 - 4.9 g/dL [facility] ALP [Catalytic activity/Vol] 83 U/L 38 - 113 U/L [facility] ALT [Catalytic activity/Vol] 16 U/L 10 - 54 U[facility]L [facility] AST [Catalytic activity/Vol] 19 U/L 14 - 40 U/L [facility] Bilirubin [Mass/Vol] 0.5 mg/dL 0.2 - 1 .3 mg/dL [facility] Bilirubin.conjugated [Mass/Vol] <0.2 mg/dL [facility] Protein [Mass/Vol] 7.6 g/dL 6.3 - 8.0 g/dL [facility] LIPID PANEL, NONFASTINGon Cholesterol [Mass/Vol] 215 mg/dL High <200 mg/dL [facility] HDL Cholesterol, Nonfasting 34 mg/dL Low >39 mg/dL [facility] LDL Cholesterol, Nonfasting 146 mg/dL High <100 mg/dL [facility] LDL/HDL Ratio, Nonfasting 4.29 mg/dL High <2.54 mg/dL [facility] Non HDL Cholesterol, Nonfasting 181 mg/dL High <130 mg/dL [facility] Total Chol/HDL Ratio, Nonfasting 6.32 mg/dL High <5.10 mg/dL [facility] Triglycerides, Nonfasting 173 mg/dL High <150 mg/dL [facility] VLDL Cholesterol, Nonfasting 35 mg/dL High <30 mg/dL [facility] No Panel Informationon 05-14 [facility] CBC W Auto Differential pane l (Bld)on 05-08-2022 Abs Immature Gran <0.10 k/uL [facility] Basophils (Bld) [#/Vol] 0.05 10*3/uL <0.11 k/uL [facility] Basophils/100 WBC (Bld) 0.8 % [facility] Differential cell count method Nom (Bld) Auto [facility] Eosinophils (Bld) [#/Vol] 0.18 10*3/uL <0.46 k/uL [facility] Eosinophils/100 WBC (Bld) 3.0 % [facility] Erythrocyte distribution width (RBC) [Ratio] 12.7 % 11.5 - 15.0 % [facility] Hematocrit (Bld) [Volume fraction] 44.6 % 39.0 - 51.0 % [facility] Hemoglobin (Bld) [Mass/Vol] 14.8 g/dL 13.0 - 17.0 g/dL [facility] Immature Gran % 0.3 % [facility] Lymphocytes (Bld) [#/Vol] 1.67 10*3/uL 1.00 - 4.00 k/uL [facility] Lymphocytes/100 WBC (Bld) 28.0 % [facility] MCH (RBC) [Entitic mass] 31.4 pg 26.0 - 34.0 pg [facility] MCHC (RBC) [Mass/Vol] 33.2 g/dL 30.5 - 36.0 g/dL [facility] MCV (RBC) [Entitic vol] 94.7 fL 80.0 - 100.0 fL [facility] Monocytes (Bld) [#/Vol] 0.48 10*3/uL <0.87 k/uL [facility] Monocytes/100 WBC (Bld) 8.1 % [facility] Neutrophils (Bld) [#/Vol] 3.56 10*3/uL 1.45 - 7.50 k/uL [facility] Neutrophils/100 WBC (Bld) 59.8 % [facility] Nucleated RBC (Bld) [#/Vol] <0.01 k/uL [facility] Nucleated RBC/100 WBC (Bld) [Ratio] 0.0 /100 WBC [facility] Platelet mean volume (Bld) [Entitic vol] 10.8 fL 9.0 - 12.7 fL [facility] Platelets (Bld) [#/Vol] 292 10*3/uL 150 - 400 k/uL [facility] RBC (Bld) [#/Vol] 4.71 10*6/uL 4.20 - 6.00 m/uL [facility] WBC (Bld) [#/Vol] 5.96 10*3/uL 3.70 - 11.00 k/uL [facility] VITAMIN D 25 HYDROXYon 05-08 25-hydroxyvitamin D3 [Mass/Vol] 26.2 ng/mL Low 31.0 - 80.0 ng/mL [facility] UA DIP, URINE (POC)on 2021 BILIRUBIN UA (POCT) Negative Negative [facility] CLARITY UA (POCT) Clear [facility] COLOR UA (POCT) Yellow [facility] GLUCOSE UA (POCT) Negative Negative mg/dL [facility] HEMOGLOBIN/BLOOD UA (POCT) Negative Negative [facility] KETONE UA (POCT) Negative Negative mg/dL [facility] LEUKOCYTES UA (POCT) Negative Negative [facility] NITRITE UA (POCT) Negative Negative [facility] PH UA (POCT) 6.0 4.5 - 8.0 [facility] Protein Ql (U) Negative Negative mg/dL [facility] SPECIFIC GRAVITY UA (POCT) 1.020 1.005 - 1.030 [facility] UROBILINOGEN UA (POCT) 0.2 E.U./dL Vidya l E.U./dL [facility] CNOVon 08-17-2017 CNOV Office Visit (AGHWW1) -------ADDIEJOHN MA Cheyanne ([id number]) 1955 MDate Time Provider Uhzoixciqg21/20/17 1:15 PM SHEILA GOMEZ AGHWW1 During your visit today, we recorded the following information about you: Respiration Weight Height 18/minute 102.1 kg 1.753 Kell Hernandez LPN 08/19/2017 8:16 AM SignedREVIEW OF SYSTEMS:GENERAL: NO FATIGUE OR MALAISEPAIN: Pain yesCARDIOVASCULAR: Negative for chest pain, leg swelling and palpations.MSK: joint pain yesSKIN: Negative for lesions, rash, itching, metal sensitivityNEURO: Numbness/tingling of extremtiesENDOCRINE: Negative for Diabetes Type 1 and Type 2HEMATOLOGY: Negative for excessive bleeding, clots, bleeding disorders.Sheila Gomez MD 08/19/2017 8:16 AM SignedPatient presents with:Established Patient: FU right hand index finger, onset 05/29/17HISTORY OF PRESENT ILLNESSJohn Real presents to the office for follow up of right index fingercomplex abscess. The patient is well-known to me and underwent an IANDamp;D of nico severe infection of his right index finger. At one point I had thoughtthat the finger was nonviable, but he has been very persistent with wound careand very patient. Over the past several months, he has had slow improvementand granulation of the open wounds. He reports continued progress since hislast visit in early June. He has been off antibiotics for some time now andreports no evidence of worsening over the time course. He wishes to continuewith his local wound care and has no new complaints on today's visit.Location: Right index fingerSeverity: 1 on a scale of 0-10Duration of symptoms: 10 weeksTreatments tried include ice, soaks, antibioticsSymptoms have improvedREVIEW OF SYSTEMSCardiovascular ROS:No history of chest pain, palpitation, orthopnea, cyanosis,pedal edemaNeurologic ROS: Numbness and Tingling: NoPAST MEDICAL HISTORYPast medical, surgical, family, and social histories have been reviewed andupdated with the patient today and are located elsewhere in the medical record.Diabetes:YesALLKEMI Hall Known AllergiesPHYSICAL EXAMINATIONResp 18 Ht 175.3 cm (5' 9ANDquot;) Wt 102.1 kg (225 lb) BMI 33.23 kg/m2Body mass index is 33.23 kg/(m2).General Appearance Well appearing, alert, in no acute distress, well-hydrated,well nourished.Alert and oriented times: 3Normal affect times: 3Appears stated age and well nourishedGait and station:normalRight Upper Extremity Exam:Inspection shows interval improvement of the right index fingerThe area of open wound and granulation tissue continues to decrease in areaTenderness to palpation: No tenderness along the flexor sheathROM: Full composite fistSensation intact at the distal aspect of the index2+ radial pulseREVIEW OF STUDIESNo new imaging obtainedASSESSMENT AND PLANASSESSMENT/PLAN:1. Abscess of right index finger - ICD9: 681.00, ICD10: L02.511The patient is making steady progress. I am quite surprised at the recoverythat the finger has undergone given its very significant infection only a fewmonths ago. The patient understands that completion of healing may takeseveral months, but is pleased with his progress thus far. We will plan onfollowing up with one another on an as-needed basis going forward. I counseledhim to contact me if there is any evidence of worsening or recurrence of theinfection. He has a good understanding the above. All of his questions wereanswered to his satisfaction.Sheila Gomez, MDPatient educated on wound care, dressing changes.Patient instructed to call the office with questions or concerns.Referring Provider: SHEILA GOMEZ [[id number]]Allergies As of Date: 08/17/2017(No Known Allergies)Date Reviewed: 08/17/2017Reviewed by: Sheila Gomez - Fully AssessedReason for Visit: Established Patient [175] Cmt: FU right hand index finger, onset 05/29/17Primary Visit Diagnosis:Abscess of right index finger [L02.511]Prescriptions as of 08/17/2017 Sig: FENOFIBRATE 160 MG TABLET TAKE ONE TABLET BY MOUTH ONCE* METFORMIN ER 500 MG TABLET,EX* TAKE TWO TABLETS BY MOUTH TWI* ACETAMINOPHEN 500 MG TABLET Take 1-2 tabs every 6 hrs as * HYDROCODONE 5 MG-ACETAMINOPHE* Take 1 tablet by mouth every * CETIRIZINE 10 MG TABLET Take 1 tablet by mouth once d* DOXYCYCLINE MONOHYDRATE 100 M* CLINDAMYCIN 300 MG CAPSULE Take 1 capsule by mouth four * PIOGLITAZONE 30 MG TABLET Take 1 tablet by mouth once d* LISINOPRIL 10 MG TABLET Take 1 tablet by mouth once d* FLUTICASONE 50 MCG/ACTUATION * Use 2 Sprays in each nostril * ATORVASTATIN 80 MG TABLET Take 1 tablet by mouth once d* BLOOD SUGAR DIAGNOSTIC STRIPS Test blood sugar(s) one times* LANCETS 33 GAUGE Test blood sugar(s) once morgan* OMEGA-3 FATTY ACIDS 1,000 MG * Take 2 capsules by mouth twic*Problem List As Of Date 08/17/2017 Noted Resolved Cervical pain [M54.2] Priority: M Thoracic back pain [M54.6] Priority: M Lumbar pain [M54.5] Priority: M More... Spermatocele of epididymis, left [N43.40] INVALID FOR* Priority: C Hydrocele, left [N43.3] INVALID FOR* Priority: C Elevated fasting blood sugar [R73.01] INVALID FOR*05/01/2015 Priority: A More... Scar tissue [L90.5] INVALID FOR* Priority: D More... Well adult exam [Z00.00] INVALID FOR* Priority: E More... Gastroesophageal reflux disease without esophag*INVALID FOR* Priority: A Callus [L84] INVALID FOR* Priority: D Mixed hyperlipidemia [E78.2] INVALID FOR* Priority: A Elevated blood pressure (not hypertension) [R03*INVALID FOR* Prostate cancer screening [Z12.5] INVALID FOR* Elevated LFTs [R79.89] INVALID FOR* Priority: B Controlled type 2 diabetes mellitus without com*INVALID FOR* Priority: A Diabetic eye exam (HCC) [E11.9, Z01.00] INVALID FOR* Priority: A Colon cancer screening [Z12.11] INVALID FOR* Current use of proton pump inhibitor [Z79.899] INVALID FOR* More... Abscess of right index finger [L02.511] INVALID FOR*Disposition: Return if symptoms worsen or fail to improve.Follow-up and Disposition History RecordedEncounter Number: [id number] Status:Closed by SHEILA GOMEZ MD on 08/19/17 Normal [facility] PROGRESSon 08-17-2017 PROGRESS HNO ID: [id number] thor: Sheila Leonice: (none)Author Type: PhysicianType: Progress NotesFiled: 08/19/2017 8:16 AMNote Text:Patient presents with:Established Patient: FU right hand index finger, onset 05/29/17HISTORY OF PRESENT ILLNESSRandapérez Real presents to the office for follow up of right indexfinger complex abscess. The patient is well-known to me and underwent anIANDD of a very severe infection of his right index finger. At one point Ihad thought that the finger was nonviable, but he has been very persistentwith wound care and very patient. Over the past several months, he hashad slow improvement and granulation of the open wounds. He reportscontinued progress since his last visit in early June. He has been offantibiotics for some time now and reports no evidence of worsening overthe time course. He wishes to continue with his local wound care and hasno new complaints on today's visit.Location: Right index fingerSeverity: 1 on a scale of 0-10Duration of symptoms: 10 weeksTreatments tried include ice, soaks, antibioticsSymptoms have improvedREVIEW OF SYSTEMSCardiovascular ROS:No history of chest pain, palpitation, orthopnea,cyanosis, pedal edemaNeurologic ROS: Numbness and Tingling: NoPAST MEDICAL HISTORYPast medical, surgical, family, and social histories have been reviewedand updated with the patient today and are located elsewhere in themedical record.Diabetes:YesALLERGIE SALLERGIESNo Known AllergiesPHYSICAL EXAMINATIONResp 18 Ht 175.3 cm (5' 9") Wt 102.1 kg (225 lb) BMI 33.23 kg/m2Body mass index is 33.23 kg/(m2).General Appearance Well appearing, alert, in no acute distress,well-hydrated, well nourished.Alert and oriented times: 3Normal affect times: 3Appears stated age and well nourishedGait and station:normalRight Upper Extremity Exam:Inspection shows interval improvement of the right index fingerThe area of open wound and granulation tissue continues to decrease inareaTenderness to palpation: No tenderness along the flexor sheathROM: Full composite fistSensation intact at the distal aspect of the index2+ radial pulseREVIEW OF STUDIESNo new imaging obtainedASSESSMENT AND PLANASSESSMENT/PLAN:1. Abscess of right index finger - ICD9: 681.00, ICD10: L02.511The patient is making steady progress. I am quite surprised at therecovery that the finger has undergone given its very significantinfection only a few months ago. The patient understands that completionof healing may take several months, but is pleased with his progress thusfar. We will plan on following up with one another on an as-needed basisgoing forward. I counseled him to contact me if there is any evidence ofworsening or recurrence of the infection. He has a good understanding theabove. All of his questions were answered to his satisfaction.Sheila Gomez, MDPatient educated on wound care, dressing changes.Patient instructed to call the office with questions or concerns. Normal [facility] PROGRESS HNO ID: [id number] thor: Tereza Kahnice: (none)Author Type: LICENSED NURSEType: Progress NotesFiled: 08/19/2017 8:16 AMNote Text:REVIEW OF SYSTEMS:GENERAL: NO FATIGUE OR MALAISEPAIN: Pain yesCARDIOVASCULAR: Negative for chest pain, leg swelling and palpations.MSK: joint pain yesSKIN: Negative for lesions, rash, itching, metal sensitivityNEURO: Numbness/tingling of extremtiesENDOCRINE: Negative for Diabetes Type 1 and Type 2HEMATOLOGY: Negative for excessive bleeding, clots, bleeding disorders. Normal [facility] CNOVon 07-06-2017 CNOV Office Visit (AGHWW1) -------JOHN REAL ([id number]) 1955 MDate Time Provider Lgohmqanpb09/9/17 10:30 AM SHEILA GOMEZ AGHWW1 During your visit today, we recorded the following information about you: Temperature Weight Height 98.2 degrees 102.1 kg 1.753 Zackery Madrigal 07/06/2017 1:20 PM SignedREVIEW OF SYSTEMS:GENERAL: Well developed, well nourished. No acute distressPAIN: Negative for pain, history of chronic pain or current treatment forchronic pain conditionsCARDIOVASCULAR: Negative for chest pain, leg swelling and palpations.MSK: back pain yes and yesSKIN: Negative for lesions, rash, itching, metal sensitivityNEURO: Numbness/tingling of extremties and yesENDOCRINE: Diabetes Type 1 yesHEMATOLOGY: Negative for excessive bleeding, clots, bleeding disorders.Sheila Gomez MD 07/06/2017 1:20 PM SignedPatient presents with:Follow Up: RIGHT HANDHISTORY OF PRESENT ILLNESSRosanapérez Real presents to the office for follow up of surgery for rightfinger complex abscess. He is nearly 4 weeks out from his injury. He notes adramatic improvement in the appearance of the finger since his last visit on06/24/2017. He is very pleased with his progress with his progress report.Minimal pain at present. He would definitely like to continue with salvage ofthe finger. He has recently finished his course of antibiotics and reports noworsening after completion.Location: Right index fingerSeverity: 3 on a scale of 0-10Duration of symptoms: One month postopTreatments tried include IANDamp;D complex index abscess, soaks, antibiotics,local wound careSymptoms have improvedREVIEW OF SYSTEMSCardiovascular ROS:No history of chest pain, palpitation, orthopnea, cyanosis,pedal edemaNeurologic ROS: Numbness and Tingling: NoPAST MEDICAL HISTORYPast medical, surgical, family, and social histories have been reviewed andupdated with the patient today and are located elsewhere in the medical record.Diabetes:YesALLERGIE SALLERGIESNo Known AllergiesPHYSICAL EXAMINATIONTemp 36.8 ?C (98.2 ?F) Ht 175.3 cm (5' 9ANDquot;) Wt 102.1 kg (225 lb) BMI33.23 kg/m2Body mass index is 33.23 kg/(m2).General Appearance Well appearing, alert, in no acute distress, well-hydrated,well nourished.Alert and oriented times: 3Normal affect times: 3Appears stated age and well nourishedGait and station:normalRight Upper Extremity Exam:Inspection shows significant improvement in the index fingerThere is granulation along the peripheries of the open wound with no necrosispresentTenderness to palpation: No tenderness along the flexor sheathROM: Intact flexion and extension at PIP, DIP joints1 cm tip to palm on composite fistBrisk capillary refillREVIEW OF STUDIESNo new imaging obtainedASSESSMENT AND PLANASSESSMENT/PLAN:1. Abscess of right index finger - ICD9: 681.00, ICD10: L02.511I am very surprised at the current appearance of the digit based on the exam atour last follow-up. At this point he finger may indeed proved to be viable,although I counseled the patient that the large wound will take months togranulate in. I would not advocate for continue broad-spectrum antibiotictherapy at this point given the current exam. He will continue with dressingchanges and local wound care. I counseled him to contact me with any issues inthe interim. We'll plan on follow-up in six weeks. All of his questions wereanswered to his satisfaction.Sheila Gomez, MDPatient educated on wound care and dressing changesPatient instructed to call the office with questions or concerns.Referring Provider: SHEILA GOMEZ [[id number]]Allergies As of Date: 07/06/2017(No Known Allergies)Date Reviewed: 07/06/2017Reviewed by: Sheila Gomez - Fully AssessedReason for Visit: Follow Up [171] Cmt: RIGHT HANDPrimary Visit Diagnosis:Abscess of right index finger [L02.511]Prescriptions as of 07/06/2017 Sig: CETIRIZINE 10 MG TABLET Take 1 tablet by mouth once d* HYDROCODONE 5 MG-ACETAMINOPHE* Take 1 tablet by mouth every * DOXYCYCLINE MONOHYDRATE 100 M* CLINDAMYCIN 300 MG CAPSULE Take 1 capsule by mouth four * PIOGLITAZONE 30 MG TABLET Take 1 tablet by mouth once d* LISINOPRIL 10 MG TABLET Take 1 tablet by mouth once d* FLUTICASONE 50 MCG/ACTUATION * Use 2 Sprays in each nostril * FENOFIBRATE 160 MG TABLET Take 1 tablet by mouth once d* ATORVASTATIN 80 MG TABLET Take 1 tablet by mouth once d* METFORMIN ER 500 MG TABLET,EX* Take 2 tablets by mouth twice* BLOOD SUGAR DIAGNOSTIC STRIPS Test blood sugar(s) one times* LANCETS 33 GAUGE Test blood sugar(s) once morgan* OMEGA-3 FATTY ACIDS 1,000 MG * Take 2 capsules by mouth twic*Problem List As Of Date 07/06/2017 Noted Resolved Cervical pain [M54.2] Priority: M Thoracic back pain [M54.6] Priority: M Lumbar pain [M54.5] Priority: M Spermatocele of epididymis, left [N43.40] INVALID FOR* Priority: C Hydrocele, left [N43.3] INVALID FOR* Priority: C Elevated fasting blood sugar [R73.01] INVALID FOR*05/01/2015 Priority: A More... Scar tissue [L90.5] INVALID FOR* Priority: D More... Well adult exam [Z00.00] INVALID FOR* Priority: E More... Gastroesophageal reflux disease without esophag*INVALID FOR* Priority: A Callus [L84] INVALID FOR* Priority: D Mixed hyperlipidemia [E78.2] INVALID FOR* Priority: A Elevated blood pressure (not hypertension) [R03*INVALID FOR* Prostate cancer screening [Z12.5] INVALID FOR* Elevated LFTs [R79.89] INVALID FOR* Priority: B Controlled type 2 diabetes mellitus without com*INVALID FOR* Priority: A Diabetic eye exam (HCC) [E11.9, Z01.00] INVALID FOR* Priority: A Colon cancer screening [Z12.11] INVALID FOR* Current use of proton pump inhibitor [Z79.899] INVALID FOR* More... Abscess of right index finger [L02.511] INVALID FOR*Medications Discontinued During This Encounter omeprazole (PRILOSEC) 20 mg capsule 180 * 3 05/20/2017 07/06/2017 Sig: Take 1 capsule by mouth before breakfast and at bedtime. Disc: Reason for discontinue is not on file. meloxicam (MOBIC) 15 mg tablet 2 06/17/2017 07/06/2017 Class: Historical Med Route: ORAL Sig: Take 15 mg by mouth twice daily. Disc: Reason for discontinue is not on file. Loperamide HCl (IMODIUM) 2 mg tab 20 t* 5 12/11/2015 07/06/2017 Route: ORAL Sig: Take 1 tablet by mouth four times daily as needed (for diarrhea). Disc: Reason for discontinue is not on file.Disposition: Return in about 6 weeks (around 08/17/2017).LOS history recordedFollow-up and Disposition History RecordedEncounter Number: [id number] Status:Closed by SHEILA GOMEZ MD on 07/06/17 [facility] 07-06-2017 [facility] Telephone (AGHWW1) -------JOHN REAL ([id number]) 1955 [facility] Fbqtiinlck50/9/17 SHEILA GOMEZ AGHWW1 During your visit today, we recorded the following information about you:Bharti Grimm Psr 07/06/2017 3:55 PM Taya Real is calling Sheila Gomez MD today with a MedicationQuestionPatient has been identified by name and birthdate.Duration of symptoms: N/APerson calling: selfCall patient at: at [phone] (home) [phone] (cell)Was an appointment scheduled: Yes: Date/Time: todayPatient is calling in regard to medications that he was supposed to getrenewed. He stated that they are [place], Clyndamycin and another one that hewasn't sure of the name.Please call patient and advise.Thank you,Bharti Gomez MD 07/06/2017 4:45 PM SignedThe patient has completed his oral antibiotic course, none additional isnecessary.I very clearly stated he will not receive any additional pain medication todayat the office visit.I attempted calling both his home and cell phone, but no answer.Continue with daily dressing changes and local wound care as discussed today inoffice, Tylenol for pain if needed.Sheila Gomez MD174:44 PMSshruthipedro Alfa Cota 07/08/2017 9:41 AM SignedI spoke with Matti, etl programmer of Dr Gomez, regarding this message below. I am forwarding this to back to the office of Dr Gomez.Jenna Umaña 07/08/2017 11:30 AM SignedI called the pt and left a voicemail relaying Dr. Gomez's instructions.Provided pt with our office number for any further issues or concerns.Jenna Lam 2016 11:30 Angeles Umaña 07/17/2017 4:30 PM AddendumPatient called and left a voicemail requesting a prescription for Hydrocodonebe faxed to his doctor's office in [place]. Patient states his PCP gave him oneprescription after his appointment with Dr. Gomez but will no longerprescribe anything further.I called the patient and left an additional voicemail relaying Dr. Gomez'sprevious instructions.Patient called an additional time at which point I spoke to him directly. Iinformed him that Dr. Gomez did not have any further prescriptions for him atthis time. Per his last office visit Dr. Gomez informed him he would not bereceiving any additional pain medication. I informed the patient that he couldtake Tylenol and/or Ibuprofen over the counter. The patient continued to askfor a prescription for Hydrocodone. I once again reiterated that Dr. Gomezwould not be prescribing any further pain medication and the patient hung up.Jenna Lam 2016 4:18 PMAllergies As of Date: 07/06/2017(No Known Allergies)Date Reviewed: 07/06/2017Reviewed by: Sheila Gomez - Fully AssessedReason for Visit: Medication Question [9528]Prescriptions as of 07/06/2017 Sig: CETIRIZINE 10 MG TABLET Take 1 tablet by mouth once d*X HYDROCODONE 5 MG-ACETAMINOPHE* Take 1 tablet by mouth every * DOXYCYCLINE MONOHYDRATE 100 M* CLINDAMYCIN 300 MG CAPSULE Take 1 capsule by mouth four * PIOGLITAZONE 30 MG TABLET Take 1 tablet by mouth once d* LISINOPRIL 10 MG TABLET Take 1 tablet by mouth once d* FLUTICASONE 50 MCG/ACTUATION * Use 2 Sprays in each nostril * FENOFIBRATE 160 MG TABLET Take 1 tablet by mouth once d* ATORVASTATIN 80 MG TABLET Take 1 tablet by mouth once d* METFORMIN ER 500 MG TABLET,EX* Take 2 tablets by mouth twice* BLOOD SUGAR DIAGNOSTIC STRIPS Test blood sugar(s) one times* LANCETS 33 GAUGE Test blood sugar(s) once morgan* OMEGA-3 FATTY ACIDS 1,000 MG * Take 2 capsules by mouth twic*Problem List As Of Date 07/06/2017 Noted Resolved Cervical pain [M54.2] Priority: M Thoracic back pain [M54.6] Priority: M Lumbar pain [M54.5] Priority: M Spermatocele of epididymis, left [N43.40] INVALID FOR* Priority: C Hydrocele, left [N43.3] INVALID FOR* Priority: C Elevated fasting blood sugar [R73.01] INVALID FOR*05/01/2015 Priority: A More... Scar tissue [L90.5] INVALID FOR* Priority: D More... Well adult exam [Z00.00] INVALID FOR* Priority: E More... Gastroesophageal reflux disease without esophag*INVALID FOR* Priority: A Callus [L84] INVALID FOR* Priority: D Mixed hyperlipidemia [E78.2] INVALID FOR* Priority: A Elevated blood pressure (not hypertension) [R03*INVALID FOR* Prostate cancer screening [Z12.5] INVALID FOR* Elevated LFTs [R79.89] INVALID FOR* Priority: B Controlled type 2 diabetes mellitus without com*INVALID FOR* Priority: A Diabetic eye exam (HCC) [E11.9, Z01.00] INVALID FOR* Priority: A Colon cancer screening [Z12.11] INVALID FOR* Current use of proton pump inhibitor [Z79.899] INVALID FOR* More... Abscess of right index finger [L02.511] INVALID FOR* Status:Closed by JENNA UMAÑA on 07/08/17 [facility] PROGRESSon 07-06-2017 PROGRESS HNO ID: [id number] thor: Sheila Leonice: (none)Author Type: PhysicianType: Progress NotesFiled: 07/06/2017 1:20 PMNote Text:Patient presents with:Follow Up: RIGHT HANDHISTORY OF PRESENT ILLNESSJohn Real presents to the office for follow up of surgery forright finger complex abscess. He is nearly 4 weeks out from his injury.He notes a dramatic improvement in the appearance of the finger since hislast visit on 06/24/2017. He is very pleased with his progress with hisprogress report. Minimal pain at present. He would definitely like tocontinue with salvage of the finger. He has recently finished his courseof antibiotics and reports no worsening after completion.Location: Right index fingerSeverity: 3 on a scale of 0-10Duration of symptoms: One month postopTreatments tried include IANDD complex index abscess, soaks, antibiotics,local wound careSymptoms have improvedREVIEW OF SYSTEMSCardiovascular ROS:No history of chest pain, palpitation, orthopnea,cyanosis, pedal edemaNeurologic ROS: Numbness and Tingling: NoPAST MEDICAL HISTORYPast medical, surgical, family, and social histories have been reviewedand updated with the patient today and are located elsewhere in themedical record.Diabetes:YesALLERGIE SALGENOGIESNo Known AllergiesPHYSICAL EXAMINATIONTemp 36.8 ?C (98.2 ?F) Ht 175.3 cm (5' 9") Wt 102.1 kg (225 lb) BMI33.23 kg/m2Body mass index is 33.23 kg/(m2).General Appearance Well appearing, alert, in no acute distress,well-hydrated, well nourished.Alert and oriented times: 3Normal affect times: 3Appears stated age and well nourishedGait and station:normalRight Upper Extremity Exam:Inspection shows significant improvement in the index fingerThere is granulation along the peripheries of the open wound with nonecrosis presentTenderness to palpation: No tenderness along the flexor sheathROM: Intact flexion and extension at PIP, DIP joints1 cm tip to palm on composite fistBrisk capillary refillREVIEW OF STUDIESNo new imaging obtainedASSESSMENT AND PLANASSESSMENT/PLAN:1. Abscess of right index finger - ICD9: 681.00, ICD10: L02.511I am very surprised at the current appearance of the digit based on theexam at our last follow-up. At this point he finger may indeed proved luis viable, although I counseled the patient that the large wound will takemonths to granulate in. I would not advocate for continue broad-spectrumantibiotic therapy at this point given the current exam. He will continuewith dressing changes and local wound care. I counseled him to contact mewith any issues in the interim. We'll plan on follow-up in six weeks.All of his questions were answered to his satisfaction.Sheila Gomez, MDPatient educated on wound care and dressing changesPatient instructed to call the office with questions or concerns. [facility] PROGRESS HNO ID: [id number] thor: Dexter (Tech) CecilService: (none)Author Type: TechnicianType: Progress NotesFiled: 07/06/2017 1:20 PMNote Text:REVIEW OF SYSTEMS:GENERAL: Well developed, well nourished. No acute distressPAIN: Negative for pain, history of chronic pain or current treatment forchronic pain conditionsCARDIOVASCULAR: Negative for chest pain, leg swelling and palpations.MSK: back pain yes and yesSKIN: Negative for lesions, rash, itching, metal sensitivityNEURO: Numbness/tingling of extremties and yesENDOCRINE: Diabetes Type 1 yesHEMATOLOGY: Negative for excessive bleeding, clots, bleeding disorders. [facility] DISCHARGE SUMMARYon 06-29-20 DISCHARGE SUMMARY [facility] Discharge SummaryMUSASHLEE HERNANDEZMRN: [id number] ACCTNUM: [id number] OF : 1955 SEX/AGE: M/62PATIENT TYPE: HOSP SVC: LOCATION: [id number] DATE: 06/08/2017 DISCHARGE DATE: 06/10/2017ADMISSION DIAGNOSIS: Right index finger complex abscess.DISCHARGE DIAGNOSIS: Right index finger complex abscess.PROCEDURES PERFORMED WHILE IN THE HOSPITAL: Incision and drainage, right index finger complexabscess.CONSULTATION S: Consults obtained while in the hospital, to some physicians for finger abscess, history ofdiabetes, and medical management.BRIEF HISTORY AND CLINICAL COURSE: This is a 62-year-old right-hand dominant, diabetic male, whoreports history of a splinter wound to his right index finger approximately 2 weeks prior to presentation. Hedeveloped progressive redness, swelling, and site of infection. He was initially seen in outside emergencydepartment, where a local drainage was attempted and he was on oral antibiotics. [facility] on [facility]08[facility]. Exam in the emergency department showed necrotic tissue and a largecomplex abscess involving the right index finger. He was admitted, started on IV antibiotics the following day, isrecommended, and the patient agreed to undergo incision and drainage of his right index finger complexabscess. This was performed by Dr. Gomez. For full details, please see the dictated operative report. Thepatient tolerated procedure well without complication, went to PACU for recovery, and subsequently wastransferred to regular nursing floor. The patient was started on soak later that evening. On postop day #1, thepatient was doing okay. His pain was controlled. He is continued on soaks t.i.d. in half chlorhexidine and halfwater. The patient was discharged home later that day in stable condition after meeting all his dietary paincontrol and physical therapy goals on oral antibiotics.DISCHARGE MEDICATIONS: Please see discharge medication reconciliation form.DISCHARGE INSTRUCTIONS: The patient was discharged home on a regular diet with activity status ofweightbearing as tolerated to right upper extremity. He is to continue soaks t.i.d. in half chlorhexidine and halfwater. The patient is follow up with Dr. Gomez. All the patient's questions were answered and he is satisfiedwith discharge instructions.Gregor Vasquez MD dictating Billy Gomez MDOrthopedic Surgery Signed: SHEILA GOMEZ MDBS:angelina 06/29/2017 10:40 EDTD: 06/15/2017 16:54:48T: 06/16/2017 03:33:00Job #: [id number] Page 1 of 1 Normal [facility] DISCHARGE SUMMARY PDF [facility] CNOVon 06-24-2017 CNOV Office Visit (AGHWN) ------JOHN REAL ([id number]) 1955 MDate Time Provider Department06/24/17 1:15 PM SHEILA GOMEZ During your visit today, we recorded the following information about you: Respiration Weight Height 16/minute 98.9 kg 1.753 Scholastica 06/24/2017 1:47 PM SignedREVIEW OF SYSTEMS:GENERAL: Well developed, well nourished. No acute distressPAIN: Pain right indexCARDIOVASCULAR: Negative for chest pain, leg swelling and palpations.MSK: Negative for joint pain, swelling, back pain, muscle pain.SKIN: Negative for lesions, rash, itching, metal sensitivityNEURO: Negative for seizure, trauma, numbness/tingling of extremities.ENDOCRINE: Diabetes Type 2HEMATOLOGY: Negative for excessive bleeding, clots, bleeding disorders.Sheila Gomez MD 06/24/2017 1:47 PM SignedPatient presents with:Finger Pain: Right indexSURGEONAndimtiaz Gomez, [facility]06/09/2017Incisio n and drainage, right index finger complex abscessHISTORY OF PRESENT ILLNESSRanjeaneth Real presents for post operative follow up 15 days from surgery.The patient is doing well overall. He's been working on dressing changes everyday and has been taking his Bactrim. He feels as though there is healingprogressing although I am not optimistic when inspecting the wound. He reportsno adverse reactions to the antibiotics and has no other complaints on today'svisit.Current Concerns: NonePain control: ControlledCurrently taking pain medication:Yes: NorcoFever, chills or other signs of infection: DeniesPHYSICAL EXAMINATIONRight index fingerInspection shows some necrotic tissue along the ulnar border of the index fingerScant purulent drainage presentNo erythema, cellulitis or drainage proximal to the PIP jointNo flexor sided tendernessROM: Intact flexion/extension at the PIP, DIP jointsSensation: Intact on radial border of index, absent on ulnar borderAIN/PIN/ulnar motor intactBrisk cap refillIMAGINGNo new imaging obtainedASSESSMENT AND PLANASSESSMENT/PLAN:1. Abscess of right index finger - ICD9: 681.00, ICD10: L02.511- SULFAMETHOXAZOLE 800 MG-TRIMETHOPRIM 160 MG TABLETI remain pessimistic regarding the viability of the finger. Intraoperativefindings showed a very severe infection with coagulation of the ulnar digitalartery and nerve. The patient however remains convinced that this finger issalvageable. At this point there is no evidence of an advancing infection andit certainly does look better than on his presentation 2 weeks ago. Although Iwould recommend he consider amputation, he wishes to give this some more timeand I think that's reasonable provided there is no degree of worsening. We'llplan on follow-up in 10 days, and if there is significant interval worsening, Iwill again recommend amputation of the digit. All his questions were answeredto his satisfaction.Andrzej Fields education provided on wound care, dressing changes.Patient was instructed to call the office with any questions and/or concernsReferring Provider: SELF [[id number]]Allergies As of Date: 06/24/2017(No Known Allergies)Date Reviewed: 06/24/2017Reviewed by: Sheila Gomez - Fully AssessedReason for Visit: Finger Pain [1583] Cmt: Right indexPrimary Visit Diagnosis:Abscess of right index finger [L02.511]Order(s):sulfameth oxazole-trimethoprim (BACTRIM DS) 800-160 mg per tabletTake 1 tablet by mouth twice daily for 10 days.Disp: 20 tabletRfl: 0Prescriptions as of 06/24/2017 Sig: DOXYCYCLINE MONOHYDRATE 100 M* CLINDAMYCIN 300 MG CAPSULE Take 1 capsule by mouth four * HYDROCODONE 5 MG-ACETAMINOPHE* Take 1 tablet by mouth every * OMEPRAZOLE 20 MG CAPSULE,[place]* Take 1 capsule by mouth befor* PIOGLITAZONE 30 MG TABLET Take 1 tablet by mouth once d* LISINOPRIL 10 MG TABLET Take 1 tablet by mouth once d* FLUTICASONE 50 MCG/ACTUATION * Use 2 Sprays in each nostril * FENOFIBRATE 160 MG TABLET Take 1 tablet by mouth once d* ATORVASTATIN 80 MG TABLET Take 1 tablet by mouth once d* METFORMIN ER 500 MG TABLET,EX* Take 2 tablets by mouth twice* BLOOD SUGAR DIAGNOSTIC STRIPS Test blood sugar(s) one times* LANCETS 33 GAUGE Test blood sugar(s) once morgan* OMEGA-3 FATTY ACIDS 1,000 MG * Take 2 capsules by mouth twic* MELOXICAM 7.5 MG TABLET Take 2 tablets by mouth once * SULFAMETHOXAZOLE 800 MG-TRIME* Take 1 tablet by mouth twice * LOPERAMIDE 2 MG TABLET Take 1 tablet by mouth four t*Problem List As Of Date 06/24/2017 Noted Resolved Cervical pain [M54.2] Priority: M Thoracic back pain [M54.6] Priority: M Lumbar pain [M54.5] Priority: M Spermatocele of epididymis, left [N43.40] INVALID FOR* Priority: C Hydrocele, left [N43.3] INVALID FOR* Priority: C Elevated fasting blood sugar [R73.01] INVALID FOR*05/01/2015 Priority: A More... Scar tissue [L90.5] INVALID FOR* Priority: E More... Well adult exam [Z00.00] INVALID FOR* Priority: E More... Gastroesophageal reflux disease without esophag*INVALID FOR* Priority: A Callus [L84] INVALID FOR* Priority: D Mixed hyperlipidemia [E78.2] INVALID FOR* Priority: A Elevated blood pressure (not hypertension) [R03*INVALID FOR* Prostate cancer screening [Z12.5] INVALID FOR* Elevated LFTs [R79.89] INVALID FOR* Priority: B Controlled type 2 diabetes mellitus without com*INVALID FOR* Priority: A Diabetic eye exam (HCC) [E11.9, Z01.00] INVALID FOR* Priority: A Colon cancer screening [Z12.11] INVALID FOR* Current use of proton pump inhibitor [Z79.899] INVALID FOR* More... Abscess of right index finger [L02.511] INVALID FOR*Prescriptions ordered this encounter Disp Refills Start End SULFAMETHOXAZOLE 800 MG-TRIMETHOPRIM* 20 t* 0 06/24/2017 07/04/2017 Route: ORAL Sig: Take 1 tablet by mouth twice daily for 10 days.Disposition: Return in about 12 days (around 07/06/2017).Follow-up and Disposition History RecordedEncounter Number: [id number] Status:Closed by SHEILA GOMEZ MD on 06/24/17 [facility] PROGRESSon 06-24-2017 PROGRESS HNO ID: [id number] thor: Sheila Centenoervice: (none)Author Type: PhysicianType: Progress NotesFiled: 06/24/2017 1:47 PMNote Text:Patient presents with:Finger Pain: Right indexSURGEONAndimtiaz Gomez, MDPROCEDURE06/09/2017Incisio n and drainage, right index finger complex abscessHISTORY OF PRESENT ILLNESSRanjeaneth Real presents for post operative follow up 15 days fromsurgery.The patient is doing well overall. He's been working on dressing changesevery day and has been taking his Bactrim. He feels as though there ishealing progressing although I am not optimistic when inspecting thewound. He reports no adverse reactions to the antibiotics and has noother complaints on today's visit.Current Concerns: NonePain control: ControlledCurrently taking pain medication:Yes: NorcoFever, chills or other signs of infection: DeniesPHYSICAL EXAMINATIONRight index fingerInspection shows some necrotic tissue along the ulnar border of the indexfingerScant purulent drainage presentNo erythema, cellulitis or drainage proximal to the PIP jointNo flexor sided tendernessROM: Intact flexion/extension at the PIP, DIP jointsSensation: Intact on radial border of index, absent on ulnar borderAIN/PIN/ulnar motor intactBrisk cap refillIMAGINGNo new imaging obtainedASSESSMENT AND PLANASSESSMENT/PLAN:1. Abscess of right index finger - ICD9: 681.00, ICD10: L02.511- SULFAMETHOXAZOLE 800 MG-TRIMETHOPRIM 160 MG TABLETI remain pessimistic regarding the viability of the finger.Intraoperative findings showed a very severe infection with coagulation ofthe ulnar digital artery and nerve. The patient however remains convincedthat this finger is salvageable. At this point there is no evidence of anadvancing infection and it certainly does look better than on hispresentation 2 weeks ago. Although I would recommend he consideramputation, he wishes to give this some more time and I think that'sreasonable provided there is no degree of worsening. We'll plan onfollow-up in 10 days, and if there is significant interval worsening, Manish again recommend amputation of the digit. All his questions wereanswered to his satisfaction.Sheila Gomze [facility] education provided on wound care, dressing changes.Patient was instructed to call the office with any questions and/orconcerns [facility] PROGRESS HNO ID: [id number] thor: Shilpa Herrera TECHService: (none)Author Type: (none)Type: Progress NotesFiled: 06/24/2017 1:47 PMNote Text:REVIEW OF SYSTEMS:GENERAL: Well developed, well nourished. No acute distressPAIN: Pain right indexCARDIOVASCULAR: Negative for chest pain, leg swelling and palpations.MSK: Negative for joint pain, swelling, back pain, muscle pain.SKIN: Negative for lesions, rash, itching, metal sensitivityNEURO: Negative for seizure, trauma, numbness/tingling of extremities.ENDOCRINE: Diabetes Type 2HEMATOLOGY: Negative for excessive bleeding, clots, bleeding disorders. [facility] CONSULTATION RECORDon 2016 CONSULTATION RECORD [facility] ConsultationASHLEE REALMRN: [id number] ACCTNUM: [id number] OF : 1955 SEX/AGE: M/62PATIENT TYPE: [facility]: LOCATION: [id number] DATE: REASON FOR CONSULT: Medical management.HISTORY OF PRESENT ILLNESS: A 62-year-old male with past medical history of diabetes type 2, onmetformin and pioglitazone at home; hypertension; hyperlipidemia, who [facility] and beingadmitted to Orthopedic Service for management of a finger abscess. Medicine team was consulted for medicalmanagement and diabetes. The patient reports compliance with metformin and pioglitazone at home. He hasnever been on insulin. He had a finger abscesses that started about a week ago and now being managed byOrthopedics. The patient also endorsed history of hypertension and hyperlipidemia. He had right index fingersoreness, but denied any other complaints at this point.PAST MEDICAL HISTORY: Hypertension, hyperlipidemia, diabetes, and osteoarthritis.PAST SURGICAL HISTORY: Skin graft.FAMILY HISTORY: The patient denied any family history of cardiac disease, or hypertension, or diabetes.SOCIAL HISTORY: Denies smoking or alcohol intake.ALLERGIES: Reviewed. Please refer to MRF.MEDICATIONS: Reviewed. Please refer to MRF.PHYSICAL EXAMINATION:VITAL SIGNS: Blood pressure 132/60, pulse 101, respiratory rate 18, temperature 36.1.GENERAL APPEARANCE: Alert, oriented x3, in no acute distress, very pleasant male.NECK: Supple. No JVD.EYES: Extraocular movement intact. Nonicteric.CARDIOVASCULAR: Regular rhythm and rate. No murmurs. No lower extremity edema. 2+ pulses in upperand lower extremity.RESPIRATORY: Nonlabored breathing. Clear to auscultation bilaterally.GI: Soft, nontender, nondistended.MUSCULOSKELETA L: The patient had right index finger abscess. No drainage observed at this point.NEURO EXAM: No focal deficits appreciated.SKIN: Warm. No rash. Skin graft noted on the left leg.LABS AND IMAGING: Labs were reviewed. BMP showed sodium 133, potassium 4.7, chloride 97, bicarb 25,glucose 336, BUN 22, creatinine 1.1, calcium 10.0. CBC showed WBC of 6.6, hemoglobin 14.9, [id number]. Elevated CRP and CPR were noted as well. Most recent blood sugar was 406.IMPRESSION AND PLAN: A 62-year-old male, history of diabetes and hypertension, hyperlipidemia, beingmanaged for abscess, on antibiotics by Orthopedics.1. Diabetes mellitus type 2. I would hold the patient's home medication of metformin and pioglitazone at this point. I will start insulin sliding scale and check A1c. We will monitor Accu-Cheks before meals and at bedtime. If A1c is above 9%, we will need to start scheduled insulin but at this point will just do a sliding scale.2. Hypertension, controlled. Resume home medication.3. Hyperlipidemia. Resume home medication.4. Right index finger abscess. Managed per Primary team. Page 1 of 1 [facility] Consultation PATIENT NAME: ASHLEE REAL MR#: [id number] ACCTNUM: [id number] Thank you for the consult. We will continue to follow.Signed: ARACELI REGALADO MD06/20/2017 19:23 EDT Araceli Regalado MD :modl /[id number] Page 2 of 1 Normal [facility] CONSULTATION RECORD PDF Normal [facility] OPERATIVE REPORTon 7 OPERATIVE REPORT [facility] Operative ReportSURGEON: JERAD Greco RANDALMRN: [id number] ACCTNUM: [id number] OF SURGERY: 06/09/2017DATE OF : 1955 SEX/AGE: M/62PATIENT TYPE: [facility]: LOCATION: [id number] DATE: 06/08/2017DATE OF SURGERY: 06/09/2017SURGEON: EBTH GrecoREOPERATIVE DIAGNOSIS: Right index finger complex abscess.POSTOPERATIVE DIAGNOSIS: Right index finger complex abscess.PROCEDURE: Incision and drainage, right index finger complex abscess.SALES PORTER: Gregor Vasquez MD, PGY-4.ANESTHESIA: General.FLUID: 600 mL crystalloid.ANTIBIOTICS: Zosyn and vancomycin scheduled from the floor.ESTIMATED BLOOD LOSS: Minimal.HATCH: None.SPECIMENS: Deep cultures x1.COMPLICATIONS: None.CONDITION: To PACU stable.OPERATIVE INDICATIONS: The patient is a 62-year-old right-hand dominant, diabetic male, who reports asplinter wound to his right index finger approximately 2 weeks ago. He developed progressive redness, swelling,and size of infection. He was initially seen in the outside ER where a local drainage was attempted. He hadbeen on some oral antibiotics and yesterday, he [place]. The surgeon recommended prompt operative treatment and recommended [facility]he [facility]. His exam showed significant necrotic tissue and a verylarge complex abscess, involving the ulnar aspect of his index finger distal to the proximal interphalangeal joint.He was admitted, begun on IV antibiotics. I examined him and recommended surgery. I discussed that theappearance of the finger was rather bleak and that he may ultimately need an amputation. The patient was inunderstanding of this; however, he strongly desired to attempt salvage on the 1st operative event. The risks,benefits, alternatives, and limitations of operative intervention were reviewed. He considered these carefully andelected to proceed. No guarantees were stated nor implied.PROCEDURE IN DETAIL: The patient was identified in the preoperative holding area having a valid and signedconsent sheet. All of his final questions were answered to his satisfaction. I personally marked the operativesite, the right index finger in indelible ink. The patient underwent a preoperative huddle and was then taken backto the operating room. He was transferred to the operative table. Anesthesia controlled the head, neck, andairway from this point forward. All bony prominences were well padded. A hand table was brought to the rightand well-padded right upper extremity tourniquet was placed, time-out was performed. All aspects of thesurgical safety checklist were reviewed and agreed upon by all members of surgical team. I began first apreliminary cleanse of the entire right upper extremity with isopropyl alcohol, this was then followed by a formalHibiclens, presurgical preparation, and the right upper extremity was then draped out in usual sterile fashion. [address] [place] [address] Operative ReportPATIENT NAME: ASHLEE REAL#: [id number] ACCTNUM: [id number] bandage was utilized to exsanguinate proximal to the wrist. No incision was necessary because therewas a large area of necrotic tissue along the mid lateral border of the index finger ulnarly. I performed a sharpdebridement of the skin and subcutaneous tissue. There was a very large void noted and there was profoundnecrosis of the underlying pulp. All of the clearly nonviable tissue was sharply debrided. The ulnarneurovascular bundle of the index finger was readily identified; however, it appeared that the arterial supply hadbeen clotted off. Great care was taken to preserve the ulnar digital nerve. After a thorough sharp debridementwas performed, thorough irrigation of the entire wound area was performed. In my estimation, greater than 50%of the pulp had been necrotic and required debridement. After a thorough irrigation, the tourniquet was let down. Meticulous hemostasis was achieved. The wound was dressed with nonadherent Xeroform gauze, followed bya soft dressing to the index finger. The patient was then awakened from anesthesia without difficulty, transferredto the recovery bed, and taken to the PACU in stable condition having tolerated the procedure well.Signed: SHEILA GOMEZ MD06/15/2017 13:39 EDTAkhang Gomez MDOrthopedic SurgeryAE:modlD: 06/09/2017 15:14:53T: 06/09/2017 16:03:07Job #: [id number] Page 2 of 1 Normal [facility] OPERATIVE REPORT PDF Normal [facility] Basic Panelon 06-10-2017 Creatinine 1.13 mg/dL Normal 0.67-1.17 [facility] Comment on above: Performed By: #### P 8 ####[facility] [place] [address] Anion gap 9 mmol/L Normal 8-16 [facility] Comment on above: Performed By: #### P 8 ####[address] [address] Calcium 8.9 mg/dL Normal 8.5-10.1 [facility] Comment on above: Performed By: #### P 8 ####[address] [address] CO2 28 mmol/L Normal 21-32 [facility] Comment on above: Performed By: #### P 8 ####[facility] [place], [place] [address] Glucose mass conc 285 mg/dL High 70-99 [facility] Comment on above: Performed By: #### P 8 ####[facility] [place], [place] [address] Urea nitrogen 12 mg/dL Normal 7-18 [facility] Comment on above: Performed By: #### P 8 ####[facility] [place], [place] [address] Chloride 100 mmol/L Normal 98-107 [facility] Comment on above: Performed By: #### P 8 ####[facility] [place], [place] [address] Potassium molar conc 4.4 mmol/L Normal 3.5-5.1 [facility] Comment on above: Performed By: #### P 8 ####[facility] [place], [place] [address] Sodium 133 mmol/L Low 136-145 [facility] Comment on above: Performed By: #### P 8 ####[address] [address] Glucose Meteron 06-10-2017 Glucose mass conc 322 mg/dL High 70-99 [facility] Comment on above: Result Comment: CINTHIA Jefferson OTIFIED Performed By: #### G LMET ####[address] [address] Glucose mass conc 371 mg/dL High 70-99 [facility] Comment on above: Result Comment: CINTHIA Jefferson OTIFIED Performed By: #### G LMET ####[address] [address] Glucose mass conc 289 mg/dL High 70-99 [facility] Comment on above: Result Comment: CINTHIA Jefferson OTIFIED Performed By: #### G LMET ####[address] [address] Glucose mass conc 265 mg/dL High 70-99 [facility] Comment on above: Result Comment: CINTHIA Jefferson OTIFIED Performed By: #### G LMET ####[address] [address] Hemogram/Diffon 06-10-2017 Basophils Auto #/vol (Bld) 0.06 thou/cmm Normal 0.01-0.08 [facility] Comment on above: Performed By: #### C RP3 ####[address] [address] Basophils/100 WBC Auto (Bld) 1.0 % Normal [facility] Comment on above: Performed By: #### C RP3 ####[address] [address] Eosinophils 0.19 thou/cmm Normal 0.04-0.54 [facility] Comment on above: Performed By: #### C RP3 ####[address] [address] Eosinophils/100 leukocytes 3.2 % Normal [facility] Comment on above: Performed By: #### C RP3 ####[place] [address] Erythrocyte distribution width Auto Ratio (RBC) 11.9 % Normal 11.6-14.4 [facility] Comment on above: Performed By: #### C RP3 ####[place] [address] Erythrocytes (RBC) 4.18 mil/cmm Low 4.63-6.08 [facility] Comment on above: Performed By: #### C RP3 ####[place] [address] Hematocrit (HCT) 39.1 % Low 40.1-51.0 [facility] Comment on above: Performed By: #### C RP3 ####[place] [address] Hemoglobin mass conc (Bld) 13.1 g/dL Low 13.7-17.5 [facility] Comment on above: Performed By: #### C RP3 ####[place] [address] Immature Grans 0.80 % Normal [facility] Comment on above: Performed By: #### C RP3 ####[place] [address] Immature Grans # 0.05 thou/cmm Normal 0.00-0.05 [facility] Comment on above: Performed By: #### C RP3 ####[place] [address] Lymphocytes 1.69 thou/cmm Normal 0.84-2.85 [facility] Comment on above: Performed By: #### C RP3 ####[place] [address] Lymphocytes/100 leukocytes 28.1 % Normal [facility] Comment on above: Performed By: #### C RP3 ####[place] [address] MCH 31.3 pg Normal 25.7-32.2 [facility] Comment on above: Performed By: #### C RP3 ####[facility] [place], [place] [address] MCHC mass conc (RBC) 33.5 % Normal 32.3-36.5 [facility] Comment on above: Performed By: #### C RP3 ####[facility] [place], [place] [address] MCV 93.5 fL Normal 83.2-95.6 [facility] Comment on above: Performed By: #### C RP3 ####[address] [address] Monocytes 0.49 thou/cmm Normal 0.30-0.82 [facility] Comment on above: Performed By: #### C RP3 ####[address] [address] Monocytes/100 leukocytes 8.2 % Normal [facility] Comment on above: Performed By: #### C RP3 ####[address] [address] Platelet mean volume (PMV) 9.4 fL Normal 8.7-12.0 [facility] Comment on above: Performed By: #### C RP3 ####[address] [address] Platelets 268 thou/cmm Normal 141-365 [facility] Comment on above: Performed By: #### C RP3 ####[address] [address] RDW SD 41.0 fl Normal 36.1-45.8 [facility] Comment on above: Performed By: #### C RP3 ####[address] [address] Seg Neutrophil 58.7 % Normal [facility] Comment on above: Performed By: #### C RP3 ####[place] [address] Seg. Neut.# 3.53 thou/cmm Normal 1.78-5.38 [facility] Comment on above: Performed By: #### C RP3 ####[facility] [place], [place] [address] WBC (Leukocytes) 6.01 thou/cmm Normal 4.23-9.07 [facility] Comment on above: Performed By: #### C RP3 ####[facility] [place], [place] [address] MDRD GFRon 06-10-2017 eGFR (non-black) mL/min/{1.73_m2} Normal >60mL/m in/ 1.73m2 [facility] Comment on above: Result Comment: If t he patient is , multiply the result by 1.210. Performed By: #### G FR ####[place] [address] Basic Panelon 06-09-2017 Creatinine 1.11 mg/dL Normal 0.67-1.17 [facility] Comment on above: Performed By: #### C RP3 ####[place] [address] Glucose mass conc 191 mg/dL High 70-99 [facility] Comment on above: Performed By: #### C RP3 ####[address] [address] Urea nitrogen 21 mg/dL High 7-18 [facility] Comment on above: Performed By: #### C RP3 ####[address] [address] Anion gap 8 mmol/L Normal 8-16 [facility] Comment on above: Performed By: #### C RP3 ####[address] [address] Calcium 8.8 mg/dL Normal 8.5-10.1 [facility] Comment on above: Performed By: #### C RP3 ####[address] [address] CO2 28 mmol/L Normal 21-32 [facility] Comment on above: Performed By: #### C RP3 ####[place] [address] Chloride 101 mmol/L Normal 98-107 [facility] Comment on above: Performed By: #### C RP3 ####[facility] [place], [place] [address] Potassium molar conc 4.2 mmol/L Normal 3.5-5.1 [facility] Comment on above: Performed By: #### C RP3 ####[facility] [place], [place] [address] Sodium 133 mmol/L Low 136-145 [facility] Comment on above: Performed By: #### C RP3 ####[address] [address] Cult Fungalon 06-09-2017 Cult Fungal Test performed at [facility] No fungus (yeast or mold) cultured Normal [facility] Comment on above: Performed By: #### C _FUN ####[address] [address] Cult and Smr MIK and AERon 0 06-09-2017 Cult and Smr MIK and AER Test performed at [facility] No anaerobic organisms cultured Few WBC Rare Gram positive cocci ORGANISM: Staphylococcus aureus (ID: 1) Moderate Normal [facility] Comment on above: Performed By: #### C _ANA ####[address] [address] Glucose Bloodon 06-09-2017 Glucose mass conc 406 mg/dL Critically high 70-99 [facility] Comment on above: Performed By: #### G MIGUEL ####[address] [address] Glucose Meteron 06-09-2017 Glucose mass conc 340 mg/dL High 70-99 [facility] Comment on above: Result Comment: CINTHIA Jefferson OTIFIED Performed By: #### C RP3 ####[address] [address] Glucose mass conc 216 mg/dL High 70- [facility] Comment on above: Result Comment: CINTHIA Jefferson OTIFIED Performed By: #### C RP3 ####[address] [address] Glucose mass conc 169 mg/dL High 70-99 [facility] Comment on above: Result Comment: RN N OTIFIED Performed By: #### C RP3 ####[address] [address] Glucose mass conc 277 mg/dL High 70-99 [facility] Comment on above: Result Comment: CINTHIA N OTIFIED Performed By: #### C RP3 ####[address] [address] Glucose mass conc 184 mg/dL High 70-99 [facility] Comment on above: Result Comment: RN N OTIFIED Performed By: #### C RP3 ####[address] [address] Hemogramon 06-09-2017 Erythrocyte distribution width Auto Ratio (RBC) 12.5 % Normal 11.6-14.4 [facility] Comment on above: Performed By: #### C BC1 ####[place] [address] Erythrocytes (RBC) 4.11 mil/cmm Low 4.63-6.08 [facility] Comment on above: Performed By: #### C BC1 ####[place] [address] Hematocrit (HCT) 38.0 % Low 40.1-51.0 [facility] Comment on above: Performed By: #### C BC1 ####[place] [address] Hemoglobin mass conc (Bld) 13.2 g/dL Low 13.7-17.5 [facility] Comment on above: Performed By: #### C BC1 ####[place] [address] MCH 32.1 pg Normal 25.7-32.2 [facility] Comment on above: Performed By: #### C BC1 ####[place] [address] MCHC mass conc (RBC) 34.7 % Normal 32.3-36.5 [facility] Comment on above: Performed By: #### C BC1 ####[place] [address] MCV 92.5 fL Normal 83.2-95.6 [facility] Comment on above: Performed By: #### C BC1 ####[facility] [place], [place] [address] Platelet mean volume (PMV) 10.2 fL Normal 8.7-12.0 [facility] Comment on above: Performed By: #### C BC1 ####[facility] [place], [place] [address] Platelets 91 thou/cmm Low 141-365 [facility] Comment on above: Result Comment: [facility] r scanned tech agrees with platelet count Performed By: #### C BC1 ####[address] [address] RDW SD 42.1 fl Normal 36.1-45.8 [facility] Comment on above: Performed By: #### C BC1 ####[address] [address] WBC (Leukocytes) 5.70 thou/cmm Normal 4.23-9.07 [facility] Comment on above: Performed By: #### C BC1 ####[address] [address] Hgb A1con 06-09-2017 Glucose mass conc 292 mg/dL Normal [facility] Comment on above: Performed By: #### C RP3 ####[address] [address] Hemoglobin A1c/Hemoglobin.total mass fraction (Bld) 11.8 % High 4.2-6.3 [facility] Comment on above: Result Comment: Meth od is National Glycohemoglobin Standardization Program (NGSP) compliant. Performed By: #### C RP3 ####[address] [address] MDRD GFRon 06-09-2017 eGFR (non-black) mL/min/{1.73_m2} Normal >60mL/m in/ 1.73m2 [facility] Comment on above: Result Comment: If t he patient is , multiply the result by 1.210. Performed By: #### C RP3 ####[address] [place], [place] [address] Basic Panelon 06-08-2017 Creatinine 1.15 mg/dL Normal 0.67-1.17 [facility] Comment on above: Performed By: #### P 8 ####[facility] [place], [place] [address] Urea nitrogen 22 mg/dL High 7-18 [facility] Comment on above: Performed By: #### P 8 ####[facility] [place], [place] [address] Anion gap 14 mmol/L Normal 8-16 [facility] Comment on above: Performed By: #### P 8 ####[address] [address] Calcium 10.0 mg/dL Normal 8.5-10.1 [facility] Comment on above: Performed By: #### P 8 ####[address] [address] CO2 25 mmol/L Normal 21-32 [facility] Comment on above: Performed By: #### P 8 ####[address] [address] Glucose mass conc 336 mg/dL High 70-99 [facility] Comment on above: Performed By: #### P 8 ####[address] [address] Chloride 97 mmol/L Low 98-107 [facility] Comment on above: Performed By: #### P 8 ####[address] [address] Potassium molar conc 4.7 mmol/L Normal 3.5-5.1 [facility] Comment on above: Performed By: #### P 8 ####[place] [address] Sodium 131 mmol/L Low 136-145 [facility] Comment on above: Performed By: #### P 8 ####[address] [address] CRPon 06-08-2017 C reactive protein (CRP) 2.78 mg/dL High 0.00-0.30 [facility] Comment on above: Performed By: #### C RP3 ####[facility] [place], [place] [address] Cult and Smr MIK and AERon 0 06-08-2017 Cult and Smr MIK and AER Test performed at [facility] No anaerobic organisms cultured Few WBC No organisms seen ORGANISM: Staphylococcus aureus (ID: 1) Rare For sensitivity report see Date/ Normal [facility] Comment on above: Performed By: #### C RP3 ####[facility] [place], [place] [address] Glucose Meteron 06-08-2017 Glucose mass conc mg/dL High 70-99 [facility] Comment on above: Result Comment: CINTHIA Jefferson OTIFIED Performed By: #### G LMET ####[address] [address] Glucose mass conc mg/dL High 70-99 [facility] Comment on above: Result Comment: CINTHIA Jefferson OTIFIEDMD NOTIFIED Performed By: #### G LMET ####[address] [address] HAND MIN 3 VIEWS UNILATERALo n 06-08-2017 HAND MIN 3 VIEWS UNILATERAL Performed at [facility] APPROVED BY: Raulito Javed MD EXAM TITLE: HAND MIN 3 VIEWS UNILATERAL DATE: 06/08/2017 18:24 INDICATION: Swelling in right index finger. Patient had sutures removed and now has pain and swelling. COMPARISON: None. PA, oblique, and lateral views of the right hand show soft tissue swelling involving the right second digit particularly along the ulnar side. No radiopaque soft tissue foreign body. No soft tissue gas. The underlying bony structures appear intact. No fracture. Normal alignment. IMPRESSION: Soft tissue swelling involving the right index finger. No bony abnormality noted. No radiopaque soft tissue foreign body or gas. Normal [facility] Hemogram/Diffon 06-08-2017 Basophils Auto #/vol (Bld) 0.08 thou/cmm Normal 0.01-0.08 [facility] Comment on above: Performed By: #### C BCD1 ####[address] [address] Basophils/100 WBC Auto (Bld) 1.2 % Normal [facility] Comment on above: Performed By: #### C BCD1 ####[facility] [place], [place] [address] Eosinophils 0.11 thou/cmm Normal 0.04-0.54 [facility] Comment on above: Performed By: #### C BCD1 ####[address] [address] Eosinophils/100 leukocytes 1.7 % Normal [facility] Comment on above: Performed By: #### C BCD1 ####[address] [address] Erythrocyte distribution width Auto Ratio (RBC) 11.9 % Normal 11.6-14.4 [facility] Comment on above: Performed By: #### C BCD1 ####[address] [address] Erythrocytes (RBC) 4.74 mil/cmm Normal 4.63-6.08 [facility] Comment on above: Performed By: #### C BCD1 ####[address] [address] Hematocrit (HCT) 43.5 % Normal 40.1-51.0 [facility] Comment on above: Performed By: #### C BCD1 ####[address] [address] Hemoglobin mass conc (Bld) 14.9 g/dL Normal 13.7-17.5 [facility] Comment on above: Performed By: #### C BCD1 ####[address] [address] Immature Grans 0.80 % Normal [facility] Comment on above: Performed By: #### C BCD1 ####[address] [address] Immature Grans # 0.05 thou/cmm Normal 0.00-0.05 [facility] Comment on above: Performed By: #### C BCD1 ####[address] [id number] Lymphocytes 1.98 thou/cmm Normal 0.84-2.85 [facility] Comment on above: Performed By: #### C BCD1 ####[facility] [place], [place] [address] Lymphocytes/100 leukocytes 29.7 % Normal [facility] Comment on above: Performed By: #### C BCD1 ####[facility] [place], [place] [address] MCH 31.4 pg Normal 25.7-32.2 [facility] Comment on above: Performed By: #### C BCD1 ####[address] [address] MCHC mass conc (RBC) 34.3 % Normal 32.3-36.5 [facility] Comment on above: Performed By: #### C BCD1 ####[address] [address] MCV 91.8 fL Normal 83.2-95.6 [facility] Comment on above: Performed By: #### C BCD1 ####[address] [address] Monocytes 0.59 thou/cmm Normal 0.30-0.82 [facility] Comment on above: Performed By: #### C BCD1 ####[address] [address] Monocytes/100 leukocytes 8.9 % Normal [facility] Comment on above: Performed By: #### C BCD1 ####[address] [address] Platelet mean volume (PMV) 9.5 fL Normal 8.7-12.0 [facility] Comment on above: Performed By: #### C BCD1 ####[address] [address] Platelets 335 thou/cmm Normal 141-365 [facility] Comment on above: Performed By: #### C BCD1 ####[address] [address] RDW SD 40.5 fl Normal 36.1-45.8 [facility] Comment on above: Performed By: #### C BCD1 ####[facility] [place], [place] [address] Seg Neutrophil 57.7 % Normal [facility] Comment on above: Performed By: #### C BCD1 ####[place] [address] Seg. Neut.# 3.84 thou/cmm Normal 1.78-5.38 [facility] Comment on above: Performed By: #### C BCD1 ####[place] [id number] WBC (Leukocytes) 6.66 thou/cmm Normal 4.23-9.07 [facility] Comment on above: Performed By: #### C BCD1 ####[place] [address] MDRD GFRon 06-08-2017 eGFR (non-black) mL/min/{1.73_m2} Normal >60mL/m in/ 1.73m2 [facility] Comment on above: Result Comment: If t he patient is , multiply the result by 1.210. Performed By: #### G FR ####[place] [address] Sed Rateon 06-08-2017 Sed Rate 75 mm/hr High 0-14 [facility] Comment on above: Performed By: #### E SR ####[place] [address] No Panel Information [facility] Vital Signs Date Time Vital Sign Value Performing Clinician Facility 05-11-2024 10: Body height 175.3 cm Benjamin Ramon MD Work Phone[facility] 05-11-2024 10:040 Body mass index (BMI) [Ratio] 33.08 kg/m2 Benjamin Ramon MD Work Phone: [facility] 05-11-2024 10:25040 Body weight 101.61 kg Benjamin Ramon MD Work Phone: [facility] 05-11-2024 10:25040 Diastolic blood pressure 68 mm[Hg] Benjamin Ramon MD Work Phone: [facility] 05-11-2024 10:25-0400 Heart rate 68 /min Benjamin Ramon MD Work Phone: [facility] 05-11-2024 10:25-0400 Respiratory rate 16 /min Benjamin Ramon MD Work Phone: [facility] 05-11-2024 10:25-0400 Systolic blood pressure 120 mm[Hg] Benjamin Ramon MD Work Phone: [facility] 01-21-2024 09:12-0400 Diastolic blood pressure 71 mm[Hg] Marek Reid MD Work Phone: [facility] 01-21-2024 09:12-0400 Heart rate 64 /min Marek Reid MD Work Phone: [facility] 01-21-2024 09:12-0400 Respiratory rate 16 /min Marek Reid MD Work Phone: [facility] 01-21-2024 09:12-0400 SaO2% (BldA) [Mass fraction] 93 % Marek Reid MD Work Phone: [facility] 01-21-2024 09:12-0400 Systolic blood pressure 135 mm[Hg] Marek Reid MD Work Phone: [facility] 01-21-2024 07:38-0400 Body mass index (BMI) [Ratio] 32.13 kg/m2 Marek Reid MD Work Phone: [facility] 01-21-2024 07:38-0400 Body temperature 96.21 [degF] Marek Reid MD Work Phone: [facility] 01-21-2024 07:38-0400 Body weight 96.6 kg Marek Reid MD Work Phone: [facility] 12-10-2023 13:33-0400 Body weight 96.62 kg Mary Velez APRN.CNP Work Phone: [facility] 12-10-2023 13:33-0400 Diastolic blood pressure 80 mm[Hg] Mary Velez INWARD TOLL OPERATOR.CALL CENTER NURSE Work Phone: [facility] 12-10-2023 13:33-0400 Heart rate 66 /min Mary Velez INWARD TOLL OPERATOR.CALL CENTER NURSE Work Phone: [facility] 12-10-2023 13:33-0400 Respiratory rate 16 /min Mary Velez INWARD TOLL OPERATOR.CALL CENTER NURSE Work Phone: [facility] 12-10-2023 13:33-0400 Systolic blood pressure 130 mm[Hg] Mary Velez INWARD TOLL OPERATOR.CALL CENTER NURSE Work Phone: [facility] 09-14-2023 09:06-0500 Diastolic blood pressure 100 mm[Hg] [facility] 09-14-2023 09:06-0500 Heart rate 69 /min [facility] 09-14-2023 09:06-0500 Systolic blood pressure 163 mm[Hg] [facility] 09-14-2023 07:31-0500 Body height 175.26 cm [facility] 09-14-2023 07:31-0500 Body mass index (BMI) [Ratio] 32.5 kg/m2 [facility] 09-14-2023 07:31-0500 Body temperature 98.1 [degF] [facility] 09-14-2023 07:31-0500 Body weight 100 kg [facility] 09-14-2023 07:31-0500 Respiratory rate 18 /min [facility] 09-14-2023 07:31-0500 SaO2% (BldA) [Mass fraction] 95 % [facility] 06-10-2023 14:11-0400 Diastolic blood pressure 78 mm[Hg] Benjamin Ramon MD Work Phone: [facility] 06-10-2023 14:11-0400 Systolic blood pressure 128 mm[Hg] Benjamin Ramon MD Work Phone: [facility] 06-10-2023 13:43-0400 Body height 173.4 cm Benjamin Ramon MD Work Phone: [facility] 06-10-2023 13:43-0400 Body weight 94.8 kg Benjamin Ramon MD Work Phone: [facility] 06-10-2023 13:43-0400 Heart rate 64 /min Benjamin Ramon MD Work Phone: [facility] 03-16-2023 08:26-0400 Body temperature 97.81 [degF] Lor Belcher PA-C Work Phone: [facility] 03-16-2023 08:26-0400 Body weight 93.89 kg Lor Belcher PA-C Work Phone: [facility] 03-16-2023 08:26-0400 Diastolic blood pressure 76 mm[Hg] Lor Belcher PA-C Work Phone: [facility] 03-16-2023 08:26-0400 Heart rate 76 /min Lor Belcher PA-C Work Phone: [facility] 03-16-2023 08:26-0400 Respiratory rate 18 /min Lor Belcher PA-C Work Phone: [facility] 03-16-2023 08:26-0400 Systolic blood pressure 126 mm[Hg] Lor Belcher PA-C Work Phone: [facility] 01-12-2023 10:42-0400 Diastolic blood pressure 78 mm[Hg] Lor Belcher PA-C Work Phone: [facility] 01-12-2023 10:42-0400 Heart rate 75 /min Lor Belcher PA-C Work Phone: [facility] 01-12-2023 10:42-0400 Systolic blood pressure 155 mm[Hg] Lor Belcher PA-C Work Phone: [facility] 01-12-2023 10:10-0400 Body temperature 97.5 [degF] Lor Belcher PA-C Work Phone: [facility] 01-12-2023 10:10-0400 Body weight 93.89 kg Lor Belcher PA-C Work Phone: [facility] 01-12-2023 10:10-0400 Respiratory rate 18 /min Lor Belcher PA-C Work Phone: [facility] 09-12-2022 09:48-0500 Diastolic blood pressure 68 mm[Hg] Benjamin Ramon MD Work Phone: [facility] 09-12-2022 09:48-0500 Systolic blood pressure 120 mm[Hg] Benjamin Ramon MD Work Phone: [facility] 09-12-2022 09:32-0500 Body weight 95.71 kg Benjamin Ramon MD Work Phone: [facility] 09-12-2022 09:32-0500 Heart rate 72 /min Benjamin Ramon MD Work Phone: [facility] 09-12-2022 09:32-0500 Respiratory rate 16 /min Benjamin Ramon MD Work Phone: [facility] 05-22-2022 09:33-0400 Diastolic blood pressure 74 mm[Hg] Mi Nurse Work Phone: [facility] 05-22-2022 09:33-0400 Heart rate 79 /min Mi Nurse Work Phone: [facility] 05-22-2022 09:33-0400 Systolic blood pressure 128 mm[Hg] Mi Nurse Work Phone: [facility] 05-08-2022 11:16-0400 Diastolic blood pressure 82 mm[Hg] Benjamin Ramon MD Work Phone: [facility] 05-08-2022 11:16-0400 Systolic blood pressure 158 mm[Hg] Benjamin Ramon MD Work Phone: [facility] 05-08-2022 10:40-0400 Body height 174 cm Benjamin Ramon MD Work Phone: [facility] 05-08-2022 10:40-0400 Body weight 108.86 kg Benjamin Ramon MD Work Phone: [facility] 05-08-2022 10:40-0400 Heart rate 68 /min Benjamin Ramon MD Work Phone: [facility] 01-13-2022 12:52-0400 Body height 173 cm NA Rodriguez PA-C Work Phone: [facility] 01-13-2022 12:52-0400 Body weight 111.58 kg NA Rodriguez PA-C Work Phone: [facility] 01-13-2022 12:52-0400 Diastolic blood pressure 77 mm[Hg] NA Rodriguez PA-C Work Phone: [facility] 01-13-2022 12:52-0400 Heart rate 77 /min NA Rodriguez PA-C Work Phone: [facility] 01-13-2022 12:52-0400 Respiratory rate 16 /min NA Rodriguez PA-C Work Phone: [facility] 01-13-2022 12:52-0400 SaO2% (BldA) [Mass fraction] 97 % NA Rodriguez PA-C Work Phone: [facility] 01-13-2022 12:52-0400 Systolic blood pressure 156 mm[Hg] NA Rodriguez PA-C Work Phone: [facility] 01-03-2022 13:20-0400 Diastolic blood pressure 81 mm[Hg] Lor Belcher PA-C Work Phone: [facility] 01-03-2022 13:20-0400 Heart rate 80 /min Lor Belcher PA-C Work Phone: [facility] 01-03-2022 13:20-0400 Systolic blood pressure 150 mm[Hg] Lor Belcher PA-C Work Phone: [facility] 01-03-2022 12:36-0400 Body temperature 97.39 [degF] Lor Belcher PA-C Work Phone: [facility] 01-03-2022 12:36-0400 Body weight 111.58 kg Lor Belcher PA-C Work Phone: [facility] 01-03-2022 12:36-0400 Respiratory rate 18 /min Lor Belcher PA-C Work Phone: [facility] Encounters Encounter Date Encounter Type Care Provider Facility Start: 01-20-2025 End: 01-20-[address] Benjamin Ramon MD Work Phone: [facility] Work Phone: Start: 01-20-2025 End: 01-20-[address] Christine Damon MD -[facility] Start: 01-20-2025 End: 01-20-2025 ambulatory Benjamin Ramon Facility:[facility] Start: 01-04-2025 End: 01-04-[address] Benjamin Ramon MD Work Phone: [facility] Work Phone: Start: 01-04-2025 End: 01-04-2025 Patient encounter procedure Monalisa Morales [facility] Work Phone: Start: 01-04-2025 End: 01-04-2025 ambulatory Benjamin Ramon Facility:[facility] Start: 11-11-2024 End: 11-11-2024 Patient encounter procedure Lor Belcher PA-C Work Phone: [facility] Comment on above: NO SHOW (Primary Dx) Start: 11-11-2024 End: 11-11-2024 ambulatory LOR BELCHER Facility:[facility] Start: 10-21-2024 ambulatory Christine VERDUZCO Facili ty:[facility] Start: 10-21-[address] Christine Damon MD -[facility] Start: 10-17-2024 End: 10-17-[address] Christine Damon MD -[facility] Start: 10-17-2024 End: 10-17-2024 ambulatory Christine VERDUZCO Facility:[facility] Start: 08-08-2024 End: 08-08-2024 Patient encounter procedure Yola Luz PA-C Work Phone: Orthopaedics Comment on above: Primary osteoarthrit is of left knee (Primary Dx) Start: 08-08-2024 End: 08-08-2024 ambulatory YOLA LUZ Facility:[facility] Start: 08-08-2024 End: 08-08-2024 Subsequent hospital visit by physician Debora [facility] [place] Shaun Work Phone: Radiology Comment on above: Left knee pain, unsp ecified chronicity [M25.562] Start: 07-19-2024 End: 07-19-2024 Orders Only Yola Luz PA-C Work Phone: Orthopaedics Comment on above: Left knee pain, unsp ecified chronicity (Primary Dx) Start: 07-14-2024 ambulatory Isael Garcias ty:[facility] Start: 07-13-2024 End: 07-18-2024 Telephone encounter Benjamin Ramon MD Work Phone: [facility] Start: 05-12-2024 End: 05-17-2024 Telephone encounter Benjamin Ramon MD Work Phone: [facility] Comment on above: Results Start: 05-11-2024 End: 05-11-2024 ambulatory BENJAMIN RAMON Facility:[facility] Start: 05-11-2024 End: 05-11-2024 Ophthalmic examination and evaluation Benjamin Ramon MD Work Phone[facility] Start: 05-11-2024 End: 05-11-2024 Patient encounter procedure Benjamin Ramon MD Work Phone: [facility] Comment on above: Encounter for Medica re annual wellness exam (Primary Dx); Uncontrolled type 2 diabetes mellitus with hyperglycemia (HCC); Diabetic eye exam (HCC); Essential hypertension; Mixed hyperlipidemia; Gastroesophageal reflux disease without esophagitis; Vitamin B12 deficiency; Vitamin D deficiency; Foot callus; Obesity, Class I, BMI 30-34.9; Advance directive discussed with patient; Prostate disorder; Lumbar pain; Screening for depression; Encounter for screening examination for other mental health and behavioral disorders; Current mild episode of major depressive disorder without prior episode (HCC); Seasonal allergic rhinitis, unspecified trigger Start: 05-06-2024 ambulatory [facility] Nobles [facility] Start: 05-06-2024 Patient encounter procedure Mary Nobles MA [facility] Comment on above: Population Health Na vigation Outreach [facility] [facility] Start: 05-02-2024 End: 05-02-2024 ambulatory YOLA ALFONSO Facility:[facility] Start: 05-02-2024 End: 05-02-2024 Patient encounter procedure Yola Alfonso PA-C Work Phone: Orthopaedics Comment on above: Primary osteoarthrit is of left knee (Primary Dx) Start: 02-16-2024 ambulatory Evelia Soliman [facility] Start: 02-16-2024 Patient encounter procedure Evelia Soliman MA [facility] Comment on above: Population Health Na vigation Outreach ([place] AWV/HCC and care gaps ) Start: 02-15-2024 Chart abstracting Benjamin bowser MD Work Phone: [facility] Comment on above: Outside Procedure Start: 02-15-2024 End: 02-15-2024 ambulatory Benjamin Ramon Facility:[facility] Start: 02-04-2024 Refill Benjamin grant MD Work Phone: [facility] Comment on above: Refill Request Start: 01-25-2024 End: 01-25-2024 ambulatory YOLA CHEMAHA Facility:[facility] Start: 01-25-2024 End: 01-25-2024 Patient encounter procedure Yola Luz PA-C Work Phone: Orthopaedics Comment on above: Primary osteoarthrit is of left knee (Primary Dx) Start: 01-21-2024 End: 01-21-2024 ambulatory MAREK REID Facility:[facility] Start: 01-21-2024 End: 01-21-2024 Subsequent hospital visit by physician Marek Reid MD Work Phone: Ambulatory Surgery Comment on above: Screening for colon cancer [Z12.11] Start: 01-15-2024 Telephone encounter Marek bob MD Work Phone: General Surgery Comment on above: Medication Problem Start: 01-11-2024 Orders Only Marek silver MD Work Phone: General Surgery Comment on above: Encounter for screen ing for malignant neoplasm of colon (Primary Dx) Results Start: 01-07-2024 End: 01-07-2024 ambulatory MARY VELEZ Facility:[facility] Start: 01-07-2024 End: 01-07-2024 Subsequent hospital visit by physician [facility] Work Phone: Radiology Comment on above: Type 2 diabetes bubba itus with stage 3a chronic kidney disease, without long-term current use of insulin (HCC) [E11.22, N18.31] Start: 01-06-2024 ambulatory Evelia Mendiola MA [facility] Comment on above: Population Health Na vigation Outreach (Med Adherence) Start: 12-17-2023 Telephone encounter Mary chirinos APRN.CNP Work Phone: [facility] [place] Comment on above: Results Start: 12-16-2023 End: 12-16-2023 ambulatory MARY VELEZ Facility:[facility] Start: 12-11-2023 Telephone encounter Mary chirinos APRN.CNP Work Phone: [facility] [place] Comment on above: Results Start: 12-10-2023 End: 12-10-2023 Patient encounter procedure Mary Velez APRN.CNP Work Phone: [facility] [place] Comment on above: Essential hypertensi on (Primary Dx); Controlled type 2 diabetes mellitus without complication, without long-term current use of insulin (HCC); Vitamin B12 deficiency; Vitamin D deficiency; Mixed hyperlipidemia; Screening for colon cancer; Gastroesophageal reflux disease without esophagitis; Screening for diabetic retinopathy Start: 12-10-2023 End: 12-10-2023 ambulatory MARY VELEZ Facility:[facility] Start: 11-05-2023 Telephone encounter Benjamin Ramon MD Work Phone: [facility] [place] Comment on above: Medication Question Start: 10-23-2023 Telephone encounter Babita Pederson MA [facility] [place] Start: 09-14-2023 End: 09-14-2023 Admission to same day surgery center [facility] Start: 09-14-2023 End: 09-14-2023 ambulatory [facility] Work Phone: Start: 09-09-2023 Telephone encounter Benjamin Ramon MD Work Phone: [facility] [place] Comment on above: Patient Update Start: 06-10-2023 End: 06-10-2023 Ophthalmic examination and evaluation Benjamin Ramon MD Work Phone: [facility] Work Phone: Start: 06-10-2023 End: 06-10-2023 Patient encounter procedure Benjamin Ramon MD Work Phone: [facility] [place] Comment on above: Encounter for Medica re annual wellness exam (Primary Dx); Uncontrolled type 2 diabetes mellitus with hyperglycemia (HCC); Controlled type 2 diabetes mellitus without complication, without long-term current use of insulin (HCC); Diabetic eye exam (HCC); Essential hypertension; Mixed hyperlipidemia; Gastroesophageal reflux disease without esophagitis; Abdominal aortic aneurysm (AAA) without rupture, unspecified part (HCC); Vitamin B12 deficiency; Vitamin D deficiency; Seasonal allergic rhinitis, unspecified trigger; Advance directive discussed with patient; Need for vaccination Start: 06-08-2023 End: 06-08-2023 Patient encounter procedure Yola Luz PA-C Work Phone: Orthopaedics Comment on above: Primary osteoarthrit is of left knee (Primary Dx) Start: 05-13-2023 E-mail encounter kj m caregiver [facility] [place] Start: 05-13-2023 Patient encounter procedure [facility] Provider [facility] [place] Comment on above: Appointment tomorrow Start: 05-05-2023 Refill Benjamin grant MD Work Phone: [facility] [place] Start: 03-16-2023 End: 03-16-2023 Patient encounter procedure Lor Belcher PA-C Work Phone: [facility] [place] Comment on above: Essential hypertensi on (Primary Dx); Mixed hyperlipidemia; Vitamin B12 deficiency; Controlled type 2 diabetes mellitus without complication, without long-term current use of insulin (HCC); Vitamin D deficiency; Prostate disorder Start: 03-02-2023 End: 03-02-2023 Patient encounter procedure Yola CASEY-C Work Phone: Orthopaedics Comment on above: Primary osteoarthrit is of left knee (Primary Dx); Subacute osteomyelitis of right ankle (HCC) Start: 01-13-2023 Telephone encounter Benjamin Ramon MD Work Phone: [facility] Comment on above: Results Start: 01-12-2023 End: 01-12-2023 Ophthalmic examination and evaluation Lor Belcher PA-C Work Phone: [facility] [place] Start: 01-12-2023 End: 01-12-2023 Patient encounter procedure [facility] Comment on above: Uncontrolled type 2 diabetes mellitus with hyperglycemia (HCC) (Primary Dx); Essential hypertension; Mixed hyperlipidemia; Vitamin B12 deficiency; Controlled type 2 diabetes mellitus without complication, without long-term current use of insulin (HCC); Vitamin D deficiency; Encounter for immunization; Abdominal aortic aneurysm (AAA) without rupture, unspecified part (HCC); Diabetic eye exam (HCC) Start: 11-24-2022 End: 11-24-2022 Patient encounter procedure Yola CASEY-C Work Phone: Orthopaedics Comment on above: Primary osteoarthrit is of left knee (Primary Dx); Chronic pain of left knee Start: 11-19-2022 Orders Only Yola glaser PA-C Work Phone: Orthopaedics Comment on above: Left knee pain, unsp ecified chronicity (Primary Dx) Start: 09-14-2022 Telephone encounter Benjamin Ramon MD Work Phone: [facility] Comment on above: Results Start: 09-12-2022 End: 09-12-2022 Ophthalmic examination and evaluation Benjamin Ramon MD Work Phone: [facility] [place] Start: 09-12-2022 End: 09-12-2022 Patient encounter procedure Benjamin Ramon MD Work Phone: [facility] [place] Comment on above: Controlled type 2 di abetes mellitus without complication, without long-term current use of insulin (HCC) (Primary Dx); Uncontrolled type 2 diabetes mellitus with hyperglycemia (HCC); Essential hypertension; Mixed hyperlipidemia; Gastroesophageal reflux disease without esophagitis; Diabetic eye exam (HCC); Abdominal aortic aneurysm (AAA) without rupture, unspecified part; Vitamin D deficiency; Vitamin B12 deficiency; Encounter for immunization Start: 09-02-2022 Telephone encounter Lor alexandre PA-C Work Phone: [facility] [place] Comment on above: requesting list of m edications Start: 08-08-2022 ambulatory Lyric Le RN [facility] Comment on above: ISABELLA RUSH RN ( Medication Adherence Review at request of payer) Start: 05-22-2022 Telephone encounter Benjamin Ramon MD Work Phone: [facility] [place] Comment on above: Blood Pressure Check Start: 05-22-2022 End: 05-22-2022 Nursing evaluation of patient and report Mi Nurse Work Phone: [facility] [place] Comment on above: Essential hypertensi on (Primary Dx) Start: 05-18-2022 Telephone encounter Benjamin Ramon MD Work Phone: [facility] [place] Comment on above: Results Start: 05-15-2022 End: 05-15-2022 Patient encounter procedure Yola Luz PA-C Work Phone: Orthopaedics Comment on above: Primary osteoarthrit is of left knee (Primary Dx); Chronic pain of left knee Start: 05-14-2022 End: 05-14-2022 Subsequent hospital visit by physician [facility] Work Phone: Radiology Comment on above: Abdominal aortic ane urysm (AAA) without rupture (HCC) [I71.4] Start: 05-11-2022 Telephone encounter Benjamin Ramon MD Work Phone: [facility] [place] Comment on above: Results Start: 05-08-2022 End: 05-08-2022 Ophthalmic examination and evaluation Benjamin Ramon MD Work Phone: [facility] [place] Start: 05-08-2022 End: 05-08-2022 Patient encounter procedure Benjamin Ramon MD Work Phone: [facility] [place] Comment on above: Medicare annual well ness visit, initial (Primary Dx); Controlled type 2 diabetes mellitus without complication, without long-term current use of insulin (HCC); Uncontrolled type 2 diabetes mellitus with hyperglycemia (HCC); Essential hypertension; Abdominal aortic aneurysm (AAA) without rupture (HCC); Diabetic eye exam (HCC); Gastroesophageal reflux disease without esophagitis; Mixed hyperlipidemia; Vitamin B12 deficiency; Vitamin D deficiency; Rash; Foot callus; Prostate disorder; Advance directive discussed with patient Start: 01-27-2022 Telephone encounter Lor alexandre PA-C Work Phone: [facility] [place] Comment on above: Results Start: 01-13-2022 End: 01-13-2022 Patient encounter procedure Bhumi Rodriguez PA-C Work Phone: [facility] [place] Comment on above: 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) Start: 01-07-2022 Telephone encounter Lor alexandre PA-C Work Phone: [facility] [place] Comment on above: Results Start: 01-03-2022 End: 01-03-2022 Patient encounter procedure Lor Belcher PA-C Work Phone: [facility] [place] Comment on above: Controlled type 2 di abetes mellitus without complication, without long-term current use of insulin (HCC) (Primary Dx); Uncontrolled type 2 diabetes mellitus with hyperglycemia (HCC); Essential hypertension; Mixed hyperlipidemia; Vitamin B12 deficiency; Gastroesophageal reflux disease without esophagitis; Vitamin D deficiency; Stage 3 skin ulcer with fat layer exposed (HCC); Abdominal aortic aneurysm (AAA) without rupture (HCC) Start: 04-17-2021 Patient encounter procedure Lor Belcher PA-C [facility] Phone[facility] Work Phone: Start: 10-24-2020 Ophthalmic examinati on and evaluation Lor Belcher PA-C Work Phone: [facility] Work Phone: Start: 08-17-2017 End: 08-17-2017 Ambulatory SHEILA GOMEZ [facility] Start: 07-06-2017 End: 07-06-2017 Ambulatory SHEILA GOMEZ [facility] Start: 06-08-2017 End: 06-10-2017 Ambulatory SHEILA GOMEZ [facility] Start: 06-08-2017 End: 06-10-2017 Evaluation and management of inpatient NO REFERRING DR Facility:[facility] Procedures Date Procedure Procedure Detail Performing Clinician Start: 01-20-2025 Vitamin D, 25-hydrox y measurement Dr. Benjamin Ramon MD Work Phone: Comment on above: Vitamin D StatusDefi ciency: <20 ng/mL (50nmol/L)Insufficiency: 20-30 ng/mL (50-75 nmol/L)Sufficiency: 30-100 ng/mL (75-250 nmol/L)Toxicity: >100 ng/mL (>250 nmol/L) Start: 01-04-2025 MRI of lumbar spine Dr. Benjamin Ramon MD Work Phone: Start: 10-21-2024 Measurement of renal function Dr. Benjamin Ramon MD Work Phone: Comment on above: GFR Calc Start: 10-17-2024 Measurement of renal function Dr. Benjamin Ramon MD Work Phone: Comment on above: GFR Calc Start: 10-17-2024 Vitamin D, 25-hydrox y measurement Dr. Benjamin Ramon MD Work Phone: Comment on above: Vitamin D 25(OH) Sta tus Range Deficiency <20 ng/mL (50nmol/L) Insufficiency 20 - 30 ng/mL (50 - 75 nmol/L) Sufficiency 30 - 100 ng/mL (75 - 250 nmol/L) Toxicity >100 ng/mL (>250 nmol/L) Start: 08-08-2024 Arthrocentesis aspir &/inj major jt/bursa w/o us Yola Luz PA-C Work Phone: Start: 05-02-2024 Arthrocentesis aspir &/inj major jt/bursa w/o us Yola Vetovitz PA-C Work Phone: Start: 01-25-2024 Arthrocentesis aspir &/inj major jt/bursa w/o us Yola Vetovitz PA-C Work Phone: Start: 01-21-2024 Colonoscopy flx dx w /collj spec when pfrmd Mary Velez INWARD TOLL OPERATOR.CALL CENTER NURSE Work Phone: Start: 01-21-2024 Jatinder colon MD Work Phone: Start: 09-14-2023 Radio Frequency Abla tion (Right) Start: 06-10-2023 INFLUENZA VACCINE, P RSV FREE, AGE 65+ YR, HIGH DOSE, QUADRIVALENT (FLUZONE HIGH-DOSE) Benjamin Ramon MD Work Phone: Start: 06-08-2023 Arthrocentesis aspir &/inj major jt/bursa w/o us Yola Vetovitz PA-C Work Phone: Start: 03-02-2023 Arthrocentesis aspir &/inj major jt/bursa w/o us Yola Vetovitz PA-C Work Phone: Start: 11-24-2022 Arthrocentesis aspir &/inj major jt/bursa w/o us Yola Vetovitz PA-C Work Phone: Start: 09-12-2022 INFLUENZA SEASONAL QUADRIVALENT HIGH DOSE AGE 65+ Benjamin Ramon MD Work Phone: Start: 09-12-2022 [email or web address] COVI D-19 BIVALENT BOOSTER VACCINE, AGE 12+ YR Benjamin Ramon MD Work Phone: Start: 05-15-2022 Arthrocentesis aspir &/inj major jt/bursa w/o us Yola Vetovitz PA-C Work Phone: Start: 05-14-2022 Us retroperitoneal r eal time w/image limited Benjamin Ramon MD Work Phone: Start: 01-13-2022 Urnls dip stick/tabl et rgnt auto w/o microscopy M Ralph Rodriguez PA-C Work Phone: Start: 06-09-2017 EXC RT HAND SUBQ TISS FA PROVIDER UNKNOWN Start: 01-13-2014 Colonoscopy Lor alexandre PA-C Work Phone: Plan of Treatment Date Care Activity Detail Author Start: 01-20-2034 Screening for malign ant neoplasm [facility] Start: 05-11-2029 Prostate specific antigen measurement Prostate Cancer Screening Discussion [facility] Start: 06-10-2028 Prostate Cancer Screening Discussion Prostate Cancer Screening Discussion [facility] Start: 06-10-2028 Prostate specific antigen measurement Prostate Cancer Screening Discussion [facility] Start: 05-08-2027 PROSTATE CANCER SCREENING DISCUSSION PROSTATE CANCER SCREENING DISCUSSION [facility] Start: 11-11-2025 Annual PCP Team Master Planner abdulaziz Disease Visit Annual PCP Team Chronic Disease Visit [facility] Start: 05-11-2025 Annual PCP Team Master Planner abdulaziz Disease Visit Annual PCP Team Chronic Disease Visit [facility] Start: 05-11-2025 Anxiety Screening Anxiety Screening [facility] Start: 05-11-2025 BP Controlled (<130/80) BP Controlle d (<130/80) [facility] Start: 05-11-2025 Covid-19 Vaccine () Covid-19 Vaccine () [facility] Comment on above: Postponed from 11/10 (Declined at this time) Start: 05-11-2025 Diabetic foot examination Diabetic Foot Exam [facility] Start: 05-11-2025 Hepatitis B screening Urine Albumin:Creatinine Ratio [facility] Start: 05-11-2025 Hepatitis B surface antibody level LDL Cholesterol [facility] Start: 05-11-2025 RSV Vaccine (1 - 1-d ose 60+ series) RSV Vaccine (1 - 1-dose 60+ series) [facility] Comment on above: Postponed from 05/24 (Insurance Coverage) Start: 05-11-2025 RSV Vaccine (1 - Ris k 60-74 years 1-dose series) RSV Vaccine (1 - Risk 60-74 years 1-dose series) [facility] Comment on above: Postponed from 05/24 (Insurance Coverage) Start: 05-11-2025 Urine microalbumin profile DTaP,Tdap,Td Vaccine (2 - Td or Tdap) [facility] Comment on above: Postponed from 12/02 (Insurance Coverage) Start: 12-09-2024 Annual PCP Team Master Planner abdulaziz Disease Visit Annual PCP Team Chronic Disease Visit [facility] Start: 12-09-2024 Hepatitis B surface antibody level LDL Cholesterol [facility] Start: 11-11-2024 Hemoglobin A1c measurement HbA1C [facility] Start: 11-11-2024 End: 11-11-2024 Patient encounter procedure [facility] [place] Comment on above: 6 month follow up Start: 08-08-2024 End: 08-08-2024 Patient encounter procedure 08/08/2024 10:30 AM EST Office Visit Orthopaedics [address] [place] [address] Yola Luz PA-C [address] [place] [address] follow up 91 day injecction Cheyanne morales [facility] Comment on above: follow up 91 day inj ecction Cheyanne morales Start: 07-28-2024 Glaucoma screening Dilated Retinal E xam [facility] Start: 06-25-2024 Hepatitis B screening Urine Albumin:Creatinine Ratio [facility] Start: 06-11-2024 Hemoglobin A1c measurement HbA1C [facility] Start: 06-10-2024 3 comp foot exam completed Diabetic Foot Exam [facility] Start: 06-10-2024 Annual PCP Team Master Planner abdulaziz Disease Visit Annual PCP Team Chronic Disease Visit [facility] Start: 06-10-2024 BP Controlled (<130/80) BP Controlle d (<130/80) [facility] Start: 06-10-2024 Diabetic foot examination Diabetic Foot Exam [facility] Start: 06-10-2024 Hepatitis B surface antibody level LDL Cholesterol [facility] Start: 05-29-2024 Covid-19 Vaccine () Covid-19 Vaccine () [facility] Start: 05-29-2024 Influenza vaccination Influenza Vacc ine (#1) [facility] Start: 05-11-2024 End: 08-10-2024 25-hydroxyvitamin D3 [Mass/volume] in Serum or Plasma [facility] Comment on above: Expected: 05/11/2024 , Expires: 08/10/2024 Start: 05-11-2024 End: 08-10-2024 Cobalamin (Vitamin B12) [Mass/volume] in Serum or Plasma [facility] Comment on above: Expected: 05/11/2024 , Expires: 08/10/2024 Start: 05-11-2024 End: 08-10-2024 Comprehensive metabolic 2000 panel - Serum or Plasma [facility] Comment on above: Expected: 05/11/2024 , Expires: 08/10/2024 Start: 05-11-2024 End: 08-10-2024 Hemoglobin A1c in Blood [facility] Comment on above: Expected: 05/11/2024 , Expires: 08/10/2024 Start: 05-11-2024 End: 08-10-2024 LIPID PANEL, NONFASTING [facility] Comment on above: Expected: 05/11/2024 , Expires: 08/10/2024 Start: 05-11-2024 End: 08-10-2024 Microalbumin/Creatinine [Mass Ratio] in Urine [facility] Work Phone: Comment on above: Expected: 05/11/2024 , Expires: 08/10/2024 Start: 05-11-2024 End: 08-10-2024 Prostate specific Ag [Mass/volume] in Serum or Plasma [facility] Comment on above: Expected: 05/11/2024 , Expires: 08/10/2024 Start: 05-11-2024 End: 08-10-2024 Urinalysis complete panel - Urine [facility] Comment on above: Expected: 05/11/2024 , Expires: 08/10/2024 Start: 05-11-2024 End: 05-11-2024 Patient encounter procedure 05/11/2024 10:00 AM EDT Office Visit [facility] [address] Benjamin Ramon MD [address] [place] [address] Annual Wellness [facility] [place] Comment on above: Annual Wellness Start: 05-02-2024 End: 05-02-2024 Patient encounter procedure 05/02/2024 10:30 AM EDT Office Visit Orthopaedics [address] [place] [address] Yola Luz PA-C [address] [place] [address] 91 day follow up injection L knee [facility] Comment on above: 91 day follow up inj ection L knee Start: 04-01-2024 PROSTATE CANCER SCREENING DISCUSSION PROSTATE CANCER SCREENING DISCUSSION [facility] Start: 03-16-2024 ANNUAL PCP TEAM BISCUITWARE BRUSHER ABDULAZIZ DISEASE VISIT ANNUAL PCP TEAM CHRONIC DISEASE VISIT [facility] Start: 03-16-2024 BP CONTROLLED (<130/80) BP CONTROLLE D (<130/80) [facility] Start: 02-13-2024 ANNUAL PCP TEAM BISCUITWARE BRUSHER ABDULAZIZ DISEASE VISIT ANNUAL PCP TEAM CHRONIC DISEASE VISIT [facility] Start: 01-25-2024 End: 01-25-2024 Patient encounter procedure 01/25/2024 10:30 AM EDT Office Visit Orthopaedics [address] [place] [address] Yola Luz PA-C [address] [place] [address] 91 day follow up injection L knee [facility] Comment on above: 91 day follow up inj ection L knee Start: 01-21-2024 End: 01-21-2024 Patient encounter procedure 01/21/2024 8:00 AM EDT Appointment Ambulatory Surgery [address] [place] [address] Marek Reid MD [address] [place] [address] Screening for colon cancer [Z12.11] [facility]ulatory [facility] Comment on above: Screening for colon cancer [Z12.11] Start: 01-14-2024 Colonoscopy COLONOSCOPY [facility] Start: 01-14-2024 COLORECTAL CANCER SCREENING COLORECTAL CANCER SCREENING [facility] Start: 01-14-2024 Screening for malign ant neoplasm of colon [facility] Start: 01-13-2024 ANNUAL PCP TEAM BISCUITWARE BRUSHER ABDULAZIZ DISEASE VISIT ANNUAL PCP TEAM CHRONIC DISEASE VISIT [facility] Start: 01-13-2024 Hepatitis B surface antibody level LDL CHOLESTEROL [facility] Start: 12-11-2023 End: 03-11-2024 Basic metabolic 2000 panel - Serum or Plasma BASIC METABOLIC PNL Lab Routine Elevated serum creatinine Expected: 12/11/2023, Expires: 03/11/2024 [facility] Work Phone: Comment on above: Expected: 12/11/2023 , Expires: 03/11/2024 Start: 12-11-2023 End: 03-11-2024 Calcium.ionized [Moles/volume] in Blood CALCIUM IONIZED BLOOD Lab Routine Hypercalcemia Expected: 12/11/2023, Expires: 03/11/2024 [facility] Work Phone: Comment on above: Expected: 12/11/2023 , Expires: 03/11/2024 Start: 12-11-2023 End: 03-11-2024 Parathyrin.intact [Mass/volume] in Serum or Plasma PTH INTACT BLD Lab Routine Hypercalcemia Expected: 12/11/2023, Expires: 03/11/2024 [facility] Work Phone: Comment on above: Expected: 12/11/2023 , Expires: 03/11/2024 Start: 12-10-2023 End: 03-10-2024 Cobalamin (Vitamin B12) [Mass/volume] in Serum or Plasma [facility] Work Phone: Comment on above: Expected: 12/10/2023 , Expires: 03/10/2024 Start: 12-10-2023 End: 03-10-2024 Comprehensive metabolic 2000 panel - Serum or Plasma [facility] Work Phone: Comment on above: Expected: 12/10/2023 , Expires: 03/10/2024 Start: 12-10-2023 End: 03-10-2024 Hemoglobin A1c in Blood [facility] Work Phone: Comment on above: Expected: 12/10/2023 , Expires: 03/10/2024 Start: 12-10-2023 End: 03-10-2024 LIPID PANEL, NONFASTING [facility] Work Phone: Comment on above: Expected: 12/10/2023 , Expires: 03/10/2024 Start: 12-09-2023 Hemoglobin A1c measurement HbA1C [facility] Start: 12-09-2023 Hemoglobin A1c/Hemoglobin.total in Blood HbA1C [facility] Start: 12-03-2023 Urine microalbumin profile [facility] Start: 11-10-2023 Covid-19 Vaccine () Covid-19 Vaccine () [facility] Start: 09-28-2023 Advance Directive Discussion Advance Directive Discussion [facility] Start: 09-28-2023 Behavioral Health Screening Behavioral Health Screening [facility] Start: 09-28-2023 Depression Assessment Depression Ass essment [facility] Start: 09-14-2023 Fluoroscopic guidance O.R. Fluoro fo r C-Arm [facility] Start: 09-14-2023 X-ray of lumbar spin e, two or three views Lumbar Spine 2 or 3 Views [facility] Start: 09-14-2023 Patient discharge [facility] Start: 09-12-2023 ANNUAL PCP TEAM BISCUITWARE BRUSHER ABDULAZIZ DISEASE VISIT ANNUAL PCP TEAM CHRONIC DISEASE VISIT [facility] Start: 09-12-2023 BP CONTROLLED (<130/80) BP CONTROLLE D (<130/80) [facility] Start: 09-12-2023 Hepatitis B surface antibody level LDL CHOLESTEROL [facility] Start: 05-29-2023 Covid-19 Vaccine () Covid-19 Vaccine () [facility] Start: 05-29-2023 Influenza vaccination INFLUENZA (#1) [facility] Start: 05-22-2023 BP CONTROLLED (<130/80) BP CONTROLLE D (<130/80) [facility] Start: 05-08-2023 3 comp foot exam completed DIABETIC FOOT EXAM [facility] Start: 05-08-2023 ANNUAL PCP TEAM BISCUITWARE BRUSHER ABDULAZIZ DISEASE VISIT ANNUAL PCP TEAM CHRONIC DISEASE VISIT [facility] Start: 05-08-2023 Hepatitis B screening URINE ALBUMIN:CREATININE RATIO [facility] Start: 05-08-2023 Hepatitis B surface antibody level LDL CHOLESTEROL [facility] Start: 05-04-2023 End: 07-04-2023 25-hydroxyvitamin D3 [Mass/volume] in Serum or Plasma VITAMIN D 25 HYDROXY Lab Routine Vitamin D deficiency Expected: 05/04/2023, Expires: 07/04/2023 [facility] Work Phone: Comment on above: Expected: 05/04/2023 , Expires: 07/04/2023 Start: 05-04-2023 End: 07-04-2023 ALBUMIN/CREAT RATIO RND UR ALBUMIN/CREAT RATIO RND UR Lab Routine Controlled type 2 diabetes mellitus without complication, without long-term current use of insulin (HCC) Expected: 05/04/2023, Expires: 07/04/2023 [facility] Work Phone: Comment on above: Expected: 05/04/2023 , Expires: 07/04/2023 Start: 05-04-2023 End: 07-04-2023 CBC W Auto Differential panel - Blood CBC + DIFF Lab Routine Controlled type 2 diabetes mellitus without complication, without long-term current use of insulin (HCC) Expected: 05/04/2023, Expires: 07/04/2023 [facility] Work Phone: Comment on above: Expected: 05/04/2023 , Expires: 07/04/2023 Start: 05-04-2023 End: 07-04-2023 Cobalamin (Vitamin B12) [Mass/volume] in Serum or Plasma VITAMIN B12 BLOOD Lab Routine Vitamin B12 deficiency Expected: 05/04/2023, Expires: 07/04/2023 [facility] Work Phone: Comment on above: Expected: 05/04/2023 , Expires: 07/04/2023 Start: 05-04-2023 End: 07-04-2023 Comprehensive metabolic 2000 panel - Serum or Plasma COMP METABOLIC PANEL Lab Routine Controlled type 2 diabetes mellitus without complication, without long-term current use of insulin (HCC) Expected: 05/04/2023, Expires: 07/04/2023 [facility] Work Phone: Comment on above: Expected: 05/04/2023 , Expires: 07/04/2023 Start: 05-04-2023 End: 07-04-2023 Hemoglobin A1c in Blood HGB A1C Lab Routine Controlled type 2 diabetes mellitus without complication, without long-term current use of insulin (HCC) Expected: 05/04/2023, Expires: 07/04/2023 [facility] Work Phone: Comment on above: Expected: 05/04/2023 , Expires: 07/04/2023 Start: 05-04-2023 End: 07-04-2023 LIPID PANEL, NONFASTING LIPID PANEL, NONFASTING Lab Routine Mixed hyperlipidemia Expected: 05/04/2023, Expires: 07/04/2023 [facility] Work Phone: Comment on above: Expected: 05/04/2023 , Expires: 07/04/2023 Start: 05-04-2023 End: 07-04-2023 Prostate specific Ag [Mass/volume] in Serum or Plasma PSA/PROSTSPECAG DIAG Lab Routine Prostate disorder Expected: 05/04/2023, Expires: 07/04/2023 [facility] Work Phone: Comment on above: Expected: 05/04/2023 , Expires: 07/04/2023 Start: 05-04-2023 End: 07-04-2023 Urinalysis complete panel - Urine URINALYSIS, WITH MICROSCOPIC Lab Routine Controlled type 2 diabetes mellitus without complication, without long-term current use of insulin (HCC) Expected: 05/04/2023, Expires: 07/04/2023 [facility] Work Phone: Comment on above: Expected: 05/04/2023 , Expires: 07/04/2023 Start: 04-13-2023 Hemoglobin A1c/Hemoglobin.total in Blood HBA1C [facility] Start: 01-13-2023 ANNUAL PCP TEAM BISCUITWARE BRUSHER ABDULAZIZ DISEASE VISIT ANNUAL PCP TEAM CHRONIC DISEASE VISIT [facility] Start: 01-12-2023 End: 03-14-2023 25-hydroxyvitamin D3 [Mass/volume] in Serum or Plasma [facility] Work Phone: Comment on above: Expected: 01/12/2023 , Expires: 03/14/2023 Start: 01-12-2023 End: 03-14-2023 Cobalamin (Vitamin B12) [Mass/volume] in Serum or Plasma [facility] Work Phone: Comment on above: Expected: 01/12/2023 , Expires: 03/14/2023 Start: 01-12-2023 End: 03-14-2023 Comprehensive metabolic 2000 panel - Serum or Plasma [facility] Work Phone: Comment on above: Expected: 01/12/2023 , Expires: 03/14/2023 Start: 01-12-2023 End: 03-14-2023 Hemoglobin A1c in Blood [facility] Work Phone: Comment on above: Expected: 01/12/2023 , Expires: 03/14/2023 Start: 01-12-2023 End: 03-14-2023 LIPID PANEL, NONFASTING [facility] Work Phone: Comment on above: Expected: 01/12/2023 , Expires: 03/14/2023 Start: 01-11-2023 COVID-19 VACCINE (6 - Pfizer series) COVID-19 VACCINE (6 - Pfizer series) [facility] Start: 01-03-2023 ANNUAL PCP TEAM BISCUITWARE BRUSHER ABDULAZIZ DISEASE VISIT ANNUAL PCP TEAM CHRONIC DISEASE VISIT [facility] Start: 01-03-2023 Hepatitis B surface antibody level LDL CHOLESTEROL [facility] Start: 12-11-2022 Hemoglobin A1c/Hemoglobin.total in Blood HBA1C [facility] Start: 11-08-2022 Hemoglobin A1c/Hemoglobin.total in Blood HBA1C [facility] Start: 11-03-2022 PNEUMOCOCCAL: 65+ (3 - PPSV23 if available, else PCV20) PNEUMOCOCCAL: 65+ (3 - PPSV23 if available, else PCV20) [facility] Start: 11-03-2022 PNEUMOCOCCAL: 65+ (3 - PPSV23 or PCV20) PNEUMOCOCCAL: 65+ (3 - PPSV23 or PCV20) [facility] Start: 11-03-2022 PNEUMOVAX AGE 65 AND OVER WITH 5YR LOOKBACK (#1) PNEUMOVAX AGE 65 AND OVER WITH 5YR LOOKBACK (#1) [facility] Start: 10-22-2022 Glaucoma screening Dilated Retinal E xam [facility] Start: 10-22-2022 Hepatitis C antibody , confirmatory test DILATED RETINAL EXAM [facility] Start: 09-28-2022 ADVANCE DIRECTIVE DISCUSSION ADVANCE DIRECTIVE DISCUSSION [facility] Start: 09-28-2022 DEPRESSION ASSESSMENT DEPRESSION ASS ESSMENT [facility] Start: 08-23-2022 Hepatitis B surface antibody level LDL CHOLESTEROL [facility] Start: 07-05-2022 Hemoglobin A1c/Hemoglobin.total in Blood HBA1C [facility] Start: 06-20-2022 COVID-19 VACCINE (5 - Booster for Pfizer series) COVID-19 VACCINE (5 - Booster for Pfizer series) [facility] Start: 05-29-2022 Influenza vaccination INFLUENZA (#1) [facility] Start: 05-08-2022 End: 07-08-2022 ALBUMIN/CREAT RATIO RND UR [facility] Work Phone: Comment on above: Expected: 05/08/2022 , Expires: 07/08/2022 Start: 05-08-2022 End: 07-08-2022 Cobalamin (Vitamin B12) [Mass/volume] in Serum or Plasma [facility] Work Phone: Comment on above: Expected: 05/08/2022 , Expires: 07/08/2022 Start: 05-08-2022 End: 07-08-2022 Comprehensive metabolic 2000 panel - Serum or Plasma [facility] Work Phone: Comment on above: Expected: 05/08/2022 , Expires: 07/08/2022 Start: 05-08-2022 End: 07-08-2022 Hemoglobin A1c in Blood [facility] Work Phone: Comment on above: Expected: 05/08/2022 , Expires: 07/08/2022 Start: 05-08-2022 End: 07-08-2022 LIPID PANEL, NONFASTING [facility] Work Phone: Comment on above: Expected: 05/08/2022 , Expires: 07/08/2022 Start: 05-08-2022 End: 07-08-2022 Prostate specific Ag [Mass/volume] in Serum or Plasma [facility] Work Phone: Comment on above: Expected: 05/08/2022 , Expires: 07/08/2022 Start: 05-08-2022 End: 07-08-2022 Urinalysis complete panel - Urine [facility] Work Phone: Comment on above: Expected: 05/08/2022 , Expires: 07/08/2022 Start: 04-17-2022 3 comp foot exam completed DIABETIC FOOT EXAM [facility] Start: 02-20-2022 Hemoglobin A1c/Hemoglobin.total in Blood HBA1C [facility] Start: 01-21-2022 End: 03-23-2022 Basic metabolic 2000 panel - Serum or Plasma BASIC METABOLIC PNL Lab Routine Elevated serum creatinine Expected: 01/21/2022, Expires: 03/23/2022 [facility] Work Phone: Comment on above: Expected: 01/21/2022 , Expires: 03/23/2022 Start: 01-03-2022 End: 03-05-2022 ALBUMIN/CREAT RATIO RND UR ALBUMIN/CREAT RATIO RND UR Lab Routine Controlled type 2 diabetes mellitus without complication, without long-term current use of insulin (HCC) Uncontrolled type 2 diabetes mellitus with hyperglycemia (HCC) Expected: 01/03/2022, Expires: 03/05/2022 [facility] Work Phone: Comment on above: Expected: 01/03/2022 , Expires: 03/05/2022 Start: 01-03-2022 End: 03-05-2022 CBC W Auto Differential panel - Blood [facility] Work Phone: Comment on above: Expected: 01/03/2022 , Expires: 03/05/2022 Start: 01-03-2022 End: 03-05-2022 Comprehensive metabolic 2000 panel - Serum or Plasma [facility] Work Phone: Comment on above: Expected: 01/03/2022 , Expires: 03/05/2022 Start: 01-03-2022 End: 03-05-2022 Hemoglobin A1c/Hemoglobin.total in Blood [facility] Work Phone: Comment on above: Expected: 01/03/2022 , Expires: 03/05/2022 Start: 01-03-2022 End: 03-05-2022 LIPID PANEL, NONFASTING [facility] Work Phone: Comment on above: Expected: 01/03/2022 , Expires: 03/05/2022 Start: 01-03-2022 End: 03-05-2022 Urinalysis complete panel - Urine URINALYSIS, WITH MICROSCOPIC Lab Routine Controlled type 2 diabetes mellitus without complication, without long-term current use of insulin (HCC) Uncontrolled type 2 diabetes mellitus with hyperglycemia (HCC) Expected: 01/03/2022, Expires: 03/05/2022 [facility] Work Phone: Comment on above: Expected: 01/03/2022 , Expires: 03/05/2022 Start: 01-03-2022 End: 03-05-2022 VITAMIN B12 BLOOD [facility] Work Phone: Comment on above: Expected: 01/03/2022 , Expires: 03/05/2022 Start: 01-03-2022 End: 03-05-2022 VITAMIN D 25 HYDROXY [facility] Work Phone: Comment on above: Expected: 01/03/2022 , Expires: 03/05/2022 Start: 12-27-2021 COVID-19 VACCINE (4 - Booster for Pfizer series) COVID-19 VACCINE (4 - Booster for Pfizer series) [facility] Start: 10-23-2021 COVID-19 VACCINE (4 - Booster for Pfizer series) COVID-19 VACCINE (4 - Booster for Pfizer series) [facility] Start: 10-10-2021 BP CONTROLLED (<130/80) BP CONTROLLE D (<130/80) [facility] Start: 10-10-2021 Hepatitis B screening URINE ALBUMIN:CREATININE RATIO [facility] Start: 09-28-2021 ADVANCE DIRECTIVE DISCUSSION ADVANCE DIRECTIVE DISCUSSION [facility] Start: 09-28-2021 DEPRESSION ASSESSMENT DEPRESSION ASS ESSMENT [facility] Start: 06-15-2021 SHINGRIX VACCINE (2 of 2) SHINGRIX VACCINE (2 of 2) [facility] Start: 02-25-2018 FECAL OCCULT BLOOD FECAL OCCULT BLOO D [facility] Start: 02-25-2018 Screening for malign ant neoplasm of colon Fecal Occult Blood [facility] Start: 2015 Hepatitis B Vaccine (1 of 3 - Risk 3-dose series) Hepatitis B Vaccine (1 of 3 - Risk 3-dose series) [facility] Start: 2015 RSV Vaccine (1 - 1-d ose 60+ series) RSV Vaccine (1 - 1-dose 60+ series) [facility] Start: 2000 COLOGUARD (FIT-DNA) COLOGUARD (FIT-D NA) [facility] Start: [address] COLONOGRAPHY [facility] Start: 2000 Screening for malign ant neoplasm of colon [facility] Start: 2000 SIGMOIDOSCOPY SIGMOIDOSCOPY [facility] Start: 1973 Anxiety Screening Anxiety Screening [facility] Start: 1973 Depression Screening Depression Scre ening [facility] End: 06-07-2023 Dup-scan artl [place] abdl/pel/scrot&/rpr orgn lmt US DOPPLER AORTA Radiology Routine Abdominal aortic aneurysm (AAA) without rupture (HCC) 1 Occurrences starting 05/08/2022 until 06/07/2023 [facility] Work Phone: Comment on above: 1 Occurrences starti ng 05/08/2022 until 06/07/2023 Patient referral [facility] Work Phone: End: 12-09-2024 Screening colonoscopy COLONOSCOPY SCREENING Endoscopy Routine Screening for colon cancer 1 Occurrences starting 12/10/2023 until 12/09/2024 [facility] Work Phone: Comment on above: 1 Occurrences starti ng 12/10/2023 until 12/09/2024 End: 01-15-2025 US Kidney - bilateral and Urinary bladder US KIDNEY/BLADDER Radiology Routine Type 2 diabetes mellitus with stage 3a chronic kidney disease, without long-term current use of insulin (HCC) 1 Occurrences starting 12/17/2023 until 01/15/2025 [facility] Work Phone: Comment on above: 1 Occurrences starti ng 12/17/2023 until 01/15/2025 US Kidney - bilatera l and Urinary bladder US KIDNEY/BLADDER Radiology Routine Type 2 diabetes mellitus with stage 3a chronic kidney disease, without long-term current use of insulin (HCC) 01/07/2024 11:11 AM EDT [facility] Work Phone: End: 06-07-2023 Us retroperitoneal real time w/image limited US ABD AORTA Radiology Routine Abdominal aortic aneurysm (AAA) without rupture (HCC) 1 Occurrences starting 05/08/2022 until 06/07/2023 [facility] Work Phone: Comment on above: 1 Occurrences starti ng 05/08/2022 until 06/07/2023 End: 07-09-2024 Us retroperitoneal real time w/image limited US ABD AORTA Radiology Routine Abdominal aortic aneurysm (AAA) without rupture, unspecified part (HCC) 1 Occurrences starting 06/10/2023 until 07/09/2024 [facility] Work Phone: Comment on above: 1 Occurrences starti ng 06/10/2023 until 07/09/2024 End: 08-18-2025 XR Knee - left 4 Views XR KNEE GENERAL 4V AP BOTH/PA BOTH/LAT/MERC LEFT Radiology Routine Left knee pain, unspecified chronicity 1 Occurrences starting 07/19/2024 until 08/18/2025 [facility] Work Phone: Comment on above: 1 Occurrences starti ng 07/19/2024 until 08/18/2025 XR Knee - left 4 Views XR KNEE G ENERAL 4V AP BOTH/PA BOTH/LAT/MERC LEFT Radiology Routine Left knee pain, unspecified chronicity 08/08/2024 10:23 AM EST [facility] Work Phone: End: 12-19-2023 XR KNEE GENERAL 4V AP BOTH/PA BOTH/LAT/MERC LEFT XR KNEE GENERAL 4V AP BOTH/PA BOTH/LAT/MERC LEFT Radiology Routine Left knee pain, unspecified chronicity 1 Occurrences starting 11/19/2022 until 12/19/2023 [facility] Work Phone: Comment on above: 1 Occurrences starti ng 11/19/2022 until 12/19/2023 [facility] Immunizations Immunization Date Immunization Notes Care Provider [facility] 06-10-2023 influenza (HD-IIV4) vaccine, age 65+ yr, high dose, quadrivalent, PF (FLUZONE HIGH-DOSE) Benjamin Ramon MD Work Phone: [facility] 06-10-2023 influenza virus vacc ine,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 left knee- Primary Primary localized osteoarthrosis, lower leg [facility]* Diagnosis Encounter for Medicare annual wellness exam- Primary Routine general medical examination at a health care facility Uncontrolled type 2 diabetes mellitus with hyperglycemia (HCC) Diabetic eye exam (HCC) Type II or unspecified type diabetes mellitus without mention of complication, not stated as uncontrolled Essential hypertension Unspecified essential hypertension Mixed hyperlipidemia Gastroesophageal reflux disease without esophagitis Esophageal reflux Vitamin B12 deficiency Other B-complex deficiencies Vitamin D deficiency Unspecified vitamin D deficiency Foot callus Corns and callosities Obesity, Class I, BMI 30-34.9 Obesity, unspecified Advance directive discussed with patient Other specified counseling Prostate disorder Unspecified disorder of prostate Lumbar pain Lumbago Screening for depression Encounter for screening examination for other mental health and behavioral disorders Current mild episode of major depressive disorder without prior episode (HCC) Seasonal allergic rhinitis, unspecified trigger [facility]* Diagnosis Left knee pain, unspecified chronicity- Primary [facility]* Diagnosis Primary osteoarthritis of left knee- Primary Primary localized osteoarthrosis, lower leg [facility]* Diagnosis Left knee pain, unspecified chronicity [facility]* Diagnosis NO SHOW- Primary documented in this encounter [facility] for referral (narrative)* Diagnostic Procedure Only (Routine) - Open Specialty Diagnoses / Procedures Referred By Contac t Referred To Contact US IMAGING Diagnoses Abdominal aortic aneurysm (AAA) without rupture (HCC) Procedures US DOPPLER AORTA DUP-SCAN ARTL [place] ABDL/PEL/SCROT&/RPR ORGN LMT Benjamin Ramon MD [facility] [place] [address] Us Imaging Referral ID Status Reason Start Date Expiration Date V isits Requested Visits Authorized [id number] Open Auto-Generate d Referral 05/08/2022 06/07/2023 1 1 * Diagnostic Procedure Only (Routine) - Open Specialty Diagnoses / Procedures Referred By Contac t Referred To Contact US IMAGING Diagnoses Abdominal aortic aneurysm (AAA) without rupture (HCC) Procedures US ABD AORTA US RETROPERITONEAL REAL TIME W/IMAGE LIMITED Benjamin Ramon MD [address] [place] [id number] Us Imaging Referral ID Status Reason Start Date Expiration Date V isits Requested Visits Authorized [id number] Open Auto-Generate d Referral 05/08/2022 06/07/2023 1 1 [facility] for referral (narrative)* Diagnostic Procedure Only (Routine) - Closed Specialty Diagnoses / Procedures [facility] US IMAGING Diagnoses Abdominal aortic aneurysm (AAA) without rupture (HCC) Procedures US DOPPLER AORTA DUP-SCAN ARTL AUR[place]A ABDL/PEL/SCROT&/[place] [address] [place] [id number] Us Imaging Referral ID Status Reason Start Date Expiration Date V isits Requested Visits Authorized [id number] Closed Auto-Generate d Referral 05/09/2022 09/27/2022 1 1 * Diagnostic Procedure Only (Routine) - Closed Specialty Diagnoses / Procedures [facility] To Contact US IMAGING Diagnoses Abdominal aortic aneurysm (AAA) without rupture (HCC) Procedures US ABD AORTA US RETROPERITONEAL REAL TIME W/IMAGE LIMITED Benjamin Ramon MD [address] [place] [id number] Us Imaging Referral ID Status Reason Start Date Expiration Date V isits Requested Visits Authorized [id number] Closed Auto-Generate d Referral 05/09/2022 09/27/2022 1 1 [facility] for referral (narrative)* Diagnostic Procedure Only (Routine) - Pending Review Specialty Diagnoses / Procedures Referred By Contac t Referred To Contact XR IMAGING Diagnoses Left knee pain, unspecified chronicity Procedures XR KNEE GENERAL 4V AP BOTH/PA BOTH/LAT/MERC LEFT RADIOLOGIC EXAM KNEE COMPLETE 4/MORE VIEWS Yola Luz PA-C [address] [place] [address] Xr Imaging Referral ID Status Reason Start Date Expiration Date Visits Requested Visits Authorized [id number] Pending Review Auto-Generat ed Referral 11/19/2022 12/19/2023 1 1 [facility] for referral (narrative)* Diagnostic Procedure Only (Routine) - Authorized Specialty Diagnoses / Procedures [facility] Ref[facility] To Contact US IMAGING Diagnoses Abdominal aortic aneurysm (AAA) without rupture, unspecified part (HCC) Procedures US ABD AORTA US RETROPERITONEAL REAL TIME W/IMAGE LIMITED Benjamin Ramon MD [address] [place] [address] Us Imaging [id number] Referral ID Status Reason Start Date Expiration Date Visits Requested Visits Authorized [id number] Authorized Auto-Generat ed Referral 06/10/2023 07/09/2024 1 1 [facility] for referral (narrative)* Outpatient Procedure (Routine) - Pending Review Specialty Diagnoses / Procedures [facility] Referred To Contact [facility] Diagnoses Screening for colon cancer Procedures COLONOSCOPY SCREENING COLONOSCOPY FLX DX W/COLLJ SPEC WHEN PFRMD Mary Velez APRN.CALL CENTER NURSE [address] [place] [address] [facility] [address] [address] Referral ID Status Reason Start Date Expiration Date Visits Requested Visits Authorized [id number] Pending Review Auto-Generat ed Referral 12/10/2023 12/09/2024 1 1 [facility] for referral (narrative)* Outpatient Procedure (Routine) - Closed Specialty Diagnoses / Procedures Referred By Lizzie bagley Referred To Contact [facility] Diagnoses Screening for colon cancer Procedures COLONOSCOPY SCREENING COLONOSCOPY FLX DX W/COLLJ SPEC WHEN Mary Grande APRN.CNP [address] [place] [address] [address] Referral ID Status Reason Start Date Expiration Date V isits Requested Visits Authorized [id number] Closed Auto-Generate d Referral 12/10/2023 12/09/2024 1 1 [facility] for referral (narrative)* Diagnostic Procedure Only (Routine) - New Request Specialty Diagnoses / Procedures Referred By Lizzie bagley Referred To Contact XR IMAGING Diagnoses Left knee pain, unspecified chronicity Procedures XR KNEE GENERAL 4V AP BOTH/PA BOTH/LAT/MERC LEFT RADIOLOGIC EXAM KNEE COMPLETE 4/MORE VIEWS Yola Luz PA-C [address] [place] [address] [place] [id number] Referral ID Status Reason Start Date Expiration Date Visits Requested Visits Authorized [id number] New Request Auto-Generat ed Referral 08/18/2025 1 1 [facility] for referral (narrative)No reason for referral information availableWChildren's Hospital for Rehabilitation Work Phone: Reason for visit Narrative* Outpatient Procedure (Routine) - Closed Specialty Diagnoses / Procedures Referred By Contac t Referred To Contact [facility] Diagnoses Screening for colon cancer Procedures COLONOSCOPY SCREENING COLONOSCOPY FLX DX W/COLLJ SPEC WHEN PFRMD Mary Velez, INWARD TOLL OPERATOR.CALL CENTER NURSE [address] [place] [address] [facility] [address] [place] [address] Referral ID Status Reason Start Date Expiration Date V isits Requested Visits Authorized [id number] Closed Auto-Generate d Referral 12/10/2023 12/09/2024 1 1 [facility] for visit Narrative* Diagnostic Procedure Only (Routine) - Closed Specialty Diagnoses / Procedures Referred By Lizzie t Referred To Contact XR IMAGING Diagnoses Left knee pain, unspecified chronicity Procedures XR KNEE GENERAL 4V AP BOTH/PA BOTH/LAT/MERC LEFT RADIOLOGIC EXAM KNEE COMPLETE 4/MORE VIEWS Yola Luz PA-C [address] [place] [address] [place] [id number] Referral ID Status Reason Start Date Expiration Date V isits Requested Visits Authorized [id number] Closed Auto-Generate d Referral 07/19/2024 08/18/2025 1 1 [facility] Family History No Family History Records FoundNo Family History Records FoundNo Family History Records FoundNo Family History Records Found Advance Directives No Advanced Directives Records Found Advance Directive Response Recorded Date/ Time Living Will No June 04 017 8:10pm Power of Transit Mixer Operator No June 04, 2017 8:10pm Medications Administered Section Inactive Administered Medications - up to 3 most recent administrations Medication Order MAR Action Action Date Dose Rate Site betamethasone acetate-betamethasone sodium phosphate 6 mg injection (CELESTONE) 6 mg, Injection - FOR ORTHO USE ONLY, ONE TIME INJECTION, 1 dose, Starting on Leslie 05/15/22 at 1210, Until Leslie 05/15/22 at 1210 Given 05/15/2022 12:10 PM EDT 6 mg K nee, Left lidocaine (PF) 10 mg/mL (1 %) 4 mL injection (XYLOCAINE) 4 mL, Injection - FOR ORTHO USE ONLY, ONE TIME INJECTION, 1 dose, Starting on Leslie 05/15/22 at 1210, Until Leslie 05/15/22 at 1210 Given 05/15/2022 12:10 PM EDT 4 mL K nee, Left Inactive Administered Medications - up to 3 most recent administrations Medication Order MAR Action Action Date Dose Rate Site betamethasone acetate-betamethasone sodium phosphate 6 mg injection (CELESTONE) 6 mg, Injection - FOR ORTHO USE ONLY, ONE TIME INJECTION, 1 dose, Starting on Thu11/24/22 at 1204, Until Thu11/24/22 at 1204 Given 11/24/2022 12:04 PM EST 6 mg K nee, Left lidocaine (PF) 10 mg/mL (1 %) 4 mL injection (XYLOCAINE) 4 mL, Injection - FOR ORTHO USE ONLY, ONE TIME INJECTION, 1 dose, Starting on Thu11/24/22 at 1204, Until Thu11/24/22 at 1204 Given 11/24/2022 12:04 PM EST 4 mL K nee, Left Inactive Administered Medications - up to 3 most recent administrations Medication Order MAR Action Action Date Dose Rate Site betamethasone acetate-betamethasone sodium phosphate 6 mg injection (CELESTONE) 6 mg, Injection - FOR ORTHO USE ONLY, ONE TIME INJECTION, 1 dose, Starting on Thu03/02/23 at 1059, Until Thu03/02/23 at 1059 Given 03/02/2023 10:59 AM EDT 6 mg Kn ee, Left lidocaine (PF) 10 mg/mL (1 %) 4 mL injection (XYLOCAINE) 4 mL, Injection - FOR ORTHO USE ONLY, ONE TIME INJECTION, 1 dose, Starting on Thu03/02/23 at 1059, Until Thu03/02/23 at 1059 Given 03/02/2023 10:59 AM EDT 4 mL Kn ee, Left Inactive Administered Medications - up to 3 most recent administrations Medication Order MAR Action Action Date Dose Rate Site betamethasone acetate-betamethasone sodium phosphate 6 mg injection (CELESTONE) 6 mg, Injection - FOR ORTHO USE ONLY, ONE TIME INJECTION, 1 dose, Starting on Thu06/08/23 at 1024, Until Thu06/08/23 at 1024 Given 06/08/2023 10:24 AM EDT 6 mg K nee, Left lidocaine (PF) 10 mg/mL (1 %) 4 mL injection (XYLOCAINE) 4 mL, Injection - FOR ORTHO USE ONLY, ONE TIME INJECTION, 1 dose, Starting on Thu06/08/23 at 1024, Until Thu06/08/23 at 1024 Given 06/08/2023 10:24 AM EDT 4 mL K nee, Left Chief Complaint and Reason for Visit Chief Complaint Admit Date LABWORK October 17, 2024 5 :00am LABWORK October 21, 2024 5 :00am DDD January 04, 2025 10:0 6am Chief Complaint Admit Date LABWORK October 17, 2024 5 :00am LABWORK October 21, 2024 5 :00am DDD January 04, 2025 10:0 6am LABWORK January 20, 2025 5:0 0am Additional Source Comments (unrecognized sect ion and content) No Status Records FoundNo Status Records FoundNo Status Records FoundNo Status Records Found INFORMATION SOURCE (unrecogn ized section and content) DATE CREATED AUTHOR 03/23/2018 [facility] DATE CREATED AUTHOR AUTHOR'S ORGANIZ ATION 03/23/2018 [facility] DATE CREATED AUTHOR AUTHOR'S ORGANIZ ATION 11/16/2024 [place] DATE CREATED AUTHOR AUTHOR'S ORGANIZ ATION 02/10/2025 [facility] Source Comments (unrecognize d section and content) In the event this informatio n is protected by the Federal Confidentiality of Alcohol and Drug Abuse Patient Records regulations: The Federal rules restrict any use of the information to criminally investigate or prosecute any alcohol or drug abuse patient.[facility] event this information is protected by the Federal Confidentiality of Alcohol and Drug Abuse Patient Records regulations: The Federal rules restrict any use of the information to criminally investigate or prosecute any alcohol or drug abuse patient.[facility] the event this information is protected by the Federal Confidentiality of Alcohol and Drug Abuse Patient Records regulations: The Federal rules restrict any use of the information to criminally investigate or prosecute any alcohol or drug abuse patient.[facility] the event this information is protected by the Federal Confidentiality of Alcohol and Drug Abuse Patient Records regulations: The Federal rules restrict any use of the information to criminally investigate or prosecute any alcohol or drug abuse patient.[facility] the event this information is protected by the Federal Confidentiality of Alcohol and Drug Abuse Patient Records regulations: The Federal rules restrict any use of the information to criminally investigate or prosecute any alcohol or drug abuse patient.[facility] the event this information is protected by the Federal Confidentiality of Alcohol and Drug Abuse Patient Records regulations: The Federal rules restrict any use of the information to criminally investigate or prosecute any alcohol or drug abuse patient.[facility] the event this information is protected by the Federal Confidentiality of Alcohol and Drug Abuse Patient Records regulations: The Federal rules restrict any use of the information to criminally investigate or prosecute any alcohol or drug abuse patient.[facility] the event this information is protected by the Federal Confidentiality of Alcohol and Drug Abuse Patient Records regulations: The Federal rules restrict any use of the information to criminally investigate or prosecute any alcohol or drug abuse patient.[facility] the event this information is protected by the Federal Confidentiality of Alcohol and Drug Abuse Patient Records regulations: The Federal rules restrict any use of the information to criminally investigate or prosecute any alcohol or drug abuse patient.[facility] the event this information is protected by the Federal Confidentiality of Alcohol and Drug Abuse Patient Records regulations: The Federal rules restrict any use of the information to criminally investigate or prosecute any alcohol or drug abuse patient.[facility] Hospital[facility] the event this information is protected by the Federal Confidentiality of Alcohol and Drug Abuse Patient Records regulations: The Federal rules restrict any use of the information to criminally investigate or prosecute any alcohol or drug abuse patient.[facility] the event this information is protected by the Federal Confidentiality of Alcohol and Drug Abuse Patient Records regulations: The Federal rules restrict any use of the information to criminally investigate or prosecute any alcohol or drug abuse patient.[facility] HospitalIn the event this information is protected by the Federal Confidentiality of Alcohol and Drug Abuse Patient Records regulations: The Federal rules restrict any use of the information to criminally investigate or prosecute any alcohol or drug abuse patient.[facility] HospitalIn the event this information is protected by the Federal Confidentiality of Alcohol and Drug Abuse Patient Records regulations: The Federal rules restrict any use of the information to criminally investigate or prosecute any alcohol or drug abuse patient.[facility] HospitalIn the event this information is protected by the Federal Confidentiality of Alcohol and Drug Abuse Patient Records regulations: The Federal rules restrict any use of the information to criminally investigate or prosecute any alcohol or drug abuse patient.[facility] HospitalIn the event this information is protected by the Federal Confidentiality of Alcohol and Drug Abuse Patient Records regulations: The Federal rules restrict any use of the information to criminally investigate or prosecute any alcohol or drug abuse patient.[facility] HospitalIn the event this information is protected by the Federal Confidentiality of Alcohol and Drug Abuse Patient Records regulations: The Federal rules restrict any use of the information to criminally investigate or prosecute any alcohol or drug abuse patient.[facility] HospitalIn the event this information is protected by the Federal Confidentiality of Alcohol and Drug Abuse Patient Records regulations: The Federal rules restrict any use of the information to criminally investigate or prosecute any alcohol or drug abuse patient.[facility] HospitalIn the event this information is protected by the Federal Confidentiality of Alcohol and Drug Abuse Patient Records regulations: The Federal rules restrict any use of the information to criminally investigate or prosecute any alcohol or drug abuse patient.[facility] HospitalIn the event this information is protected by the Federal Confidentiality of Alcohol and Drug Abuse Patient Records regulations: The Federal rules restrict any use of the information to criminally investigate or prosecute any alcohol or drug abuse patient.[facility] HospitalIn the event this information is protected by the Federal Confidentiality of Alcohol and Drug Abuse Patient Records regulations: The Federal rules restrict any use of the information to criminally investigate or prosecute any alcohol or drug abuse patient.[facility] HospitalIn the event this information is protected by the Federal Confidentiality of Alcohol and Drug Abuse Patient Records regulations: The Federal rules restrict any use of the information to criminally investigate or prosecute any alcohol or drug abuse patient.[facility] HospitalIn the event this information is protected by the Federal Confidentiality of Alcohol and Drug Abuse Patient Records regulations: The Federal rules restrict any use of the information to criminally investigate or prosecute any alcohol or drug abuse patient.[facility] HospitalIn the event this information is protected by the Federal Confidentiality of Alcohol and Drug Abuse Patient Records regulations: The Federal rules restrict any use of the information to criminally investigate or prosecute any alcohol or drug abuse patient.[facility] HospitalIn the event this information is protected by the Federal Confidentiality of Alcohol and Drug Abuse Patient Records regulations: The Federal rules restrict any use of the information to criminally investigate or prosecute any alcohol or drug abuse patient.[facility] HospitalIn the event this information is protected by the Federal Confidentiality of Alcohol and Drug Abuse Patient Records regulations: The Federal rules restrict any use of the information to criminally investigate or prosecute any alcohol or drug abuse patient.[facility] HospitalIn the event this information is protected by the Federal Confidentiality of Alcohol and Drug Abuse Patient Records regulations: The Federal rules restrict any use of the information to criminally investigate or prosecute any alcohol or drug abuse patient.[facility] HospitalIn the event this information is protected by the Federal Confidentiality of Alcohol and Drug Abuse Patient Records regulations: The Federal rules restrict any use of the information to criminally investigate or prosecute any alcohol or drug abuse patient.[facility] HospitalIn the event this information is protected by the Federal Confidentiality of Alcohol and Drug Abuse Patient Records regulations: The Federal rules restrict any use of the information to criminally investigate or prosecute any alcohol or drug abuse patient.[facility] HospitalIn the event this information is protected by the Federal Confidentiality of Alcohol and Drug Abuse Patient Records regulations: The Federal rules restrict any use of the information to criminally investigate or prosecute any alcohol or drug abuse patient.[facility] HospitalIn the event this information is protected by the Federal Confidentiality of Alcohol and Drug Abuse Patient Records regulations: The Federal rules restrict any use of the information to criminally investigate or prosecute any alcohol or drug abuse patient.[facility] HospitalIn the event this information is protected by the Federal Confidentiality of Alcohol and Drug Abuse Patient Records regulations: The Federal rules restrict any use of the information to criminally investigate or prosecute any alcohol or drug abuse patient.[facility] HospitalIn the event this information is protected by the Federal Confidentiality of Alcohol and Drug Abuse Patient Records regulations: The Federal rules restrict any use of the information to criminally investigate or prosecute any alcohol or drug abuse patient.[facility] HospitalIn the event this information is protected by the Federal Confidentiality of Alcohol and Drug Abuse Patient Records regulations: The Federal rules restrict any use of the information to criminally investigate or prosecute any alcohol or drug abuse patient.[facility] HospitalIn the event this information is protected by the Federal Confidentiality of Alcohol and Drug Abuse Patient Records regulations: The Federal rules restrict any use of the information to criminally investigate or prosecute any alcohol or drug abuse patient.City HospitalIn the event this information is protected by the Federal Confidentiality of Alcohol and Drug Abuse Patient Records regulations: The Federal rules restrict any use of the information to criminally investigate or prosecute any alcohol or drug abuse patient.City HospitalIn the event this information is protected by the Federal Confidentiality of Alcohol and Drug Abuse Patient Records regulations: The Federal rules restrict any use of the information to criminally investigate or prosecute any alcohol or drug abuse patient.[facility] HospitalIn the event this information is protected by the Federal Confidentiality of Alcohol and Drug Abuse Patient Records regulations: The Federal rules restrict any use of the information to criminally investigate or prosecute any alcohol or drug abuse patient.[facility] HospitalIn the event this information is protected by the Federal Confidentiality of Alcohol and Drug Abuse Patient Records regulations: The Federal rules restrict any use of the information to criminally investigate or prosecute any alcohol or drug abuse patient.[facility] HospitalIn the event this information is protected by the Federal Confidentiality of Alcohol and Drug Abuse Patient Records regulations: The Federal rules restrict any use of the information to criminally investigate or prosecute any alcohol or drug abuse patient.[facility] HospitalIn the event this information is protected by the Federal Confidentiality of Alcohol and Drug Abuse Patient Records regulations: The Federal rules restrict any use of the information to criminally investigate or prosecute any alcohol or drug abuse patient.[facility] HospitalIn the event this information is protected by the Federal Confidentiality of Alcohol and Drug Abuse Patient Records regulations: The Federal rules restrict any use of the information to criminally investigate or prosecute any alcohol or drug abuse patient.[facility] HospitalIn the event this information is protected by the Federal Confidentiality of Alcohol and Drug Abuse Patient Records regulations: The Federal rules restrict any use of the information to criminally investigate or prosecute any alcohol or drug abuse patient.City HospitalIn the event this information is protected by the Federal Confidentiality of Alcohol and Drug Abuse Patient Records regulations: The Federal rules restrict any use of the information to criminally investigate or prosecute any alcohol or drug abuse patient.[facility] HospitalIn the event this information is protected by the Federal Confidentiality of Alcohol and Drug Abuse Patient Records regulations: The Federal rules restrict any use of the information to criminally investigate or prosecute any alcohol or drug abuse patient.[facility] HospitalIn the event this information is protected by the Federal Confidentiality of Alcohol and Drug Abuse Patient Records regulations: The Federal rules restrict any use of the information to criminally investigate or prosecute any alcohol or drug abuse patient.[facility] HospitalIn the event this information is protected by the Federal Confidentiality of Alcohol and Drug Abuse Patient Records regulations: The Federal rules restrict any use of the information to criminally investigate or prosecute any alcohol or drug abuse patient.[facility] HospitalIn the event this information is protected by the Federal Confidentiality of Alcohol and Drug Abuse Patient Records regulations: The Federal rules restrict any use of the information to criminally investigate or prosecute any alcohol or drug abuse patient.[facility] HospitalIn the event this information is protected by the Federal Confidentiality of Alcohol and Drug Abuse Patient Records regulations: The Federal rules restrict any use of the information to criminally investigate or prosecute any alcohol or drug abuse patient.[facility] HospitalIn the event this information is protected by the Federal Confidentiality of Alcohol and Drug Abuse Patient Records regulations: The Federal rules restrict any use of the information to criminally investigate or prosecute any alcohol or drug abuse patient.[facility] Reason for Visit (unrecogniz ed section and content) Reason Comments 4 month follow up Specialty Diagnoses / Procedures Referred By Lizzie bagley Referred To Contact Family Practice / FAMILY MEDICINE Diagnoses f/u 4 months Procedures 4C EST Self Lor Belcher PA-C [address] [place] [address] Referral ID Status Reason Start Date Expiration Date V isits Requested Visits Authorized [id number] Closed Patient Cleared INN/SMCP Payor Auth Obtained 12/23/2021 09/27/2022 1 1 Reason Comments Results Reason Comments Medicare Wellness Exam Specialty Diagnoses / Procedures Referred By Lizzie bagley Referred To Contact Family Practice / FAMILY MEDICINE Diagnoses Medicare Wellness/4 month Procedures 4C EST Lor Francis PA-C [address] [place] [address] Benjamin Ramon MD [address] [place] [address] Referral ID Status Reason Start Date Expiration Date Visits Re quested Visits Authorized [id number] Closed 05/08/2022 09/27/2022 1 1 Reason Comments Radiology US Specialty Diagnoses / Procedures Referred By Contac t Referred To Contact US IMAGING Diagnoses Abdominal aortic aneurysm (AAA) without rupture (HCC) Procedures US ABD AORTA US RETROPERITONEAL REAL TIME W/IMAGE LIMITED Benjamin Ramon MD [address] [place] [address] Us Imaging Referral ID Status Reason Start Date Expiration Date V isits Requested Visits Authorized [id number] Closed Auto-Generate d Referral 05/09/2022 09/27/2022 1 1 Reason Comments Established Patient Knee Pain Injections Specialty Diagnoses / Procedures Referred By Lizzie t Referred To Contact ORTHOPAEDIC SURGERY Diagnoses Injection Procedures ARTHROCENTESIS ASPIR&/INJ MAJOR JT/BURSA W/O US Injection Yola Luz PA-C [address] [place] [address] [facility] [address] [place] [address] Referral ID Status Reason Start Date Expiration Date V isits Requested Visits Authorized [id number] Authorized 05/12/2022 07/11/2022 99 99 Reason Comments Blood Pressure Check Reason Onset Date Comments ACM ADRI RN 08/08/2022 Medication Ad herence Review at request of payer Reason Comments requesting list of medications Reason Comments Follow Up Patient is here for 4 month follow up Reason Comments Established Patient Follow Up Reason Comments Recheck Reason Comments Established Patient Pain Injections Reason Comments Recheck Blood pressure Reason Comments Established Patient Pain Reason Comments Medicare Wellness Exam Reason Comments Patient Update Reason Comments Medication Question Reason Comments 6 Month Exam Reason Comments Results Reason Onset Date Comments Population Health Navigation Outreach 01/06/2024 Med Adherence Reason Comments Radiology US Specialty Diagnoses / Procedures Referred By Contniesha t Referred To Contact US IMAGING Diagnoses Type 2 diabetes mellitus with stage 3a chronic kidney disease, without long-term current use of insulin (HCC) Procedures US KIDNEY/BLADDER US RETROPERITONEAL REAL TIME W/IMAGE COMPLETE Mary Velez APRN.CALL CENTER NURSE [address] [place] [address] [place] [address] Referral ID Status Reason Start Date Expiration Date V isits Requested Visits Authorized [id number] Closed Auto-Generate d Referral 12/17/2023 01/15/2025 1 1 Reason Comments Medication Problem Reason Comments Established Patient Reason Comments Refill Request Reason Comments Outside Procedure Reason Onset Date Comments Population Health Navigation Outreach 02/16/2024 [place] AW[facility]/HCC and care gaps Reason Onset Date Comments Population Health Navigation Outreach 05/06/2024 [place] [facility] [place] [facility] Reason Comments Medicare Wellness Exam Care Teams (unrecognized sec tion and content) Dope Sprayer Relationship Specialty Start Date End Date Benjamin Ramon MD [address] [place] [address] PCP - General Family Practice 12/02/13 [facility] [address] [facility] [place] [address] Pharmacist Pharmacy 07/11/21 Dope Sprayer Relationship Specialty Start Date End Date Benjamin Ramon MD [address] [facility] [place] [address] PCP - General Family Practice 12/02/13 [facility] [address] [place] [place] [address] Pharmacist Pharmacy 07/11/21 Dope Sprayer Relationship Specialty Start Date End Date Benjamin Ramon MD [address] [facility] [place] [address] PCP - General Family Practice 12/02/13 [facility] [address] [facility] [place] [address] Pharmacist Pharmacy 07/11/21 Dope Sprayer Relationship Specialty Start Date End Date Benjamin Ramon MD [address] [facility] [place] [address] PCP - General Family Practice 12/02/13 [place] Eva, [facility]ly [facility] [address] [place] [address] Pharmacist Pharmacy 07/11/21 Dope Sprayer Relationship Specialty Start Date End Date Benjamin Ramon MD [address] [place] [address] PCP - General Family Practice 12/02/13 [place] [facility] [address] [place] [address] Pharmacist Pharmacy 07/11/21 Dope Sprayer Relationship Specialty Start Date End Date Benjamin Ramon MD [address] [place] [address] PCP - General Family Practice 12/02/13 [place] [facility] [address] [place] [address] Pharmacist Pharmacy 07/11/21 Dope Sprayer Relationship Specialty Start Date End Date Benjamin Ramon MD [address] [place] [address] PCP - General Family Practice 12/02/13 [place] [facility] [address] [place] [address] Pharmacist Pharmacy 07/11/21 Dope Sprayer Relationship Specialty Start Date End Date Benjamin Ramon MD [address] [place] [address] PCP - General Family Practice 12/02/13 [place] [facility] [address] [place] [address] Pharmacist Pharmacy 07/11/21 Dope Sprayer Relationship Specialty Start Date End Date Benjamin Ramon MD [address] [place] [address] PCP - General Family Practice 12/02/13 [place] Eva, Formerly [facility] [address] [place] [address] Pharmacist Pharmacy 07/11/21 Dope Sprayer Relationship Specialty Start Date End Date Benjamin Ramon MD [address] [place] [address] PCP - General Family Medicine 12/02/13 [place] Eva, [facility]ly [facility] [address] [place] [address] Pharmacist Pharmacy 07/11/21 Dope Sprayer Relationship Specialty Start Date End Date Benjamin Ramon MD [address] [place] [address] PCP - General Family Medicine 12/02/13 [place] Eva, Formerly [facility] [address] [place] [address] Pharmacist Pharmacy 07/11/21 Dope Sprayer Relationship Specialty Start Date End Date Benjamin Ramon MD [address] [place] [address] PCP - General Family Medicine 12/02/13 [place] Eva, Formerly [facility] [address] [place] [address] Pharmacist Pharmacy 07/11/21 Dope Sprayer Relationship Specialty Start Date End Date Benjamin Ramon MD [address] [place] [address] PCP - General Family Medicine 12/02/13 [place] Eva, Formerly [facility] [address] [place] [address] Pharmacist Pharmacy 07/11/21 Dope Sprayer Relationship Specialty Start Date End Date Benjamin Ramon MD [address] [place] [address] PCP - General Family Medicine 12/02/13 [place] Fragosoily, Formerly [facility] [address] [place] [address] Pharmacist Pharmacy 07/11/21 Dope Sprayer Relationship Specialty Start Date End Date Benjamin Ramon MD [address] [place] [address] PCP - General Family Medicine 12/02/13 [place], Formerly [facility] [address] [place] [address] Pharmacist Pharmacy 07/11/21 Dope Sprayer Relationship Specialty Start Date End Date Benjamin Ramon MD [address] [place] [address] PCP - General Family Medicine 12/02/13 Eva Fragoso, Formerly [facility] [address] [place] [address] Pharmacist Pharmacy 07/11/21 Dope Sprayer Relationship Specialty Start Date End Date Benjamin Ramon MD [address] [place] [address] PCP - General Family Medicine 12/02/13 Eva Fragoso, Formerly [facility] [address] [place] [address] Pharmacist Pharmacy 07/11/21 Dope Sprayer Relationship Specialty Start Date End Date Benjamin Ramon MD [address] [place] [address] PCP - General Family Medicine 12/02/13 [place] more[place], Formerly [facility] [address] [place] [address] Pharmacist Pharmacy 07/11/21 Dope Sprayer Relationship Specialty Start Date End Date Benjamin Ramon MD [address] [place] [address] PCP - General Family Medicine 12/02/13 [place], Formerly [facility] [address] [place] [address] Pharmacist Pharmacy 07/11/21 Dope Sprayer Relationship Specialty Start Date End Date Benjamin Ramon MD [address] [place] [address] PCP - General Family Medicine 12/02/13 [place] Eva, Formerly [facility] [address] [place] [address] Pharmacist Pharmacy 07/11/21 Dope Sprayer Relationship Specialty Start Date End Date Benjamin Ramon MD [address] [place] [address] PCP - General Family Medicine 12/02/13 [place], [facility]ly [facility] [address] [place] [address] Pharmacist Pharmacy 07/11/21 Team Status: Active Member Role Status Dates Dr. Benjamin Ramon MD Family Provider Active Dr. Benjamin Ramon MD Primary Care Provider Active Team Status: Inactive Member Role Status Dates Dr. Benjamin Ramon MD Primary Care Provider Active Dr. Benjamin Arciniega MD Attending Provider, Referring Provider Active Dope Sprayer Relationship Specialty Start Date End Date Benjamin Ramon MD [address] [place] [address] PCP - General Family Medicine 12/02/13 [place] Eva, Formerly [facility] [address] [place] [address] Pharmacist Pharmacy 07/11/21 Dope Sprayer Relationship Specialty Start Date End Date Benjamin Ramon MD [address] [place] [address] PCP - General Family Medicine 12/02/13 [place] Eva, Formerly [facility] [address] [place] [address] Pharmacist Pharmacy 07/11/21 Dope Sprayer Relationship Specialty Start Date End Date Benjamin Ramon MD [address] [place] [address] PCP - General Family Medicine 12/02/13 [place], Formerly [facility] [address] [place] [address] Pharmacist Pharmacy 07/11/21 Dope Sprayer Relationship Specialty Start Date End Date Benjamin Ramon MD [address] [place] [address] PCP - General Family Medicine 12/02/13 [place], Formerly [facility] [address] [place] [address] Pharmacist Pharmacy 07/11/21 Dope Sprayer Relationship Specialty Start Date End Date Benjamin Ramon MD [address] [place] [address] PCP - General Family Medicine 12/02/13 [place] Eva, Formerly [facility] [address] [place] [address] Pharmacist Pharmacy 07/11/21 Dope Sprayer Relationship Specialty Start Date End Date Benjamin Ramon MD [address] [place] [address] PCP - General Family Medicine 12/02/13 [place], Eva, [facility] [address] [facility] [address] Pharmacist Pharmacy 07/11/21 Dope Sprayer Relationship Specialty Start Date End Date Benjamin Ramon MD [address] [facility] [place] [address] PCP - General Family Medicine 12/02/13 [place], Eva, [facility] [address] [facility] [address] Pharmacist Pharmacy 07/11/21 Dope Sprayer Relationship Specialty Start Date End Date Benjamin Ramon MD [address] [place] [address] PCP - General Family Medicine 12/02/13 [place] Eva, [facility]ly [facility] [address] [facility] [address] Pharmacist Pharmacy 07/11/21 Dope Sprayer Relationship Specialty Start Date End Date Benjamin Ramon MD [address] [place] [address] PCP - General Family Medicine 12/02/13 [place], Eva, [facility]ly [facility] [address] [place] [address] Pharmacist Pharmacy 07/11/21 Dope Sprayer Relationship Specialty Start Date End Date Benjamin Ramon MD [address] [facility] [place] [address] PCP - General Family Medicine 12/02/13 [place], Eva, Formerly [facility] [address] [facility] [place] [address] Pharmacist Pharmacy 07/11/21 Dope Sprayer Relationship Specialty Start Date End Date Benjamin Ramon MD [address] [facility] [address] PCP - General Family Medicine 12/02/13 Eva Fragoso, Formerly [facility] [address] [place] [address] Pharmacist Pharmacy 07/11/21 Dope Sprayer Relationship Specialty Start Date End Date Benjamin Ramon MD [address] [facility] [address] PCP - General Family Medicine 12/02/13 [place] Eva, Formerly [facility] [address] [facility] [address] Pharmacist Pharmacy 07/11/21 Dope Sprayer Relationship Specialty Start Date End Date Benjamin Ramon MD [address] [place] [address] PCP - General Family Medicine 12/02/13 Eva Fragoso, Formerly [facility] [address] [facility] [address] Pharmacist Pharmacy 07/11/21 Dope Sprayer Relationship Specialty Start Date End Date Benjamin Ramon MD [address] [place] [address] PCP - General Family Medicine 12/02/13 07/17/24 Eva Fragoso, Formerly [facility] [address] [place] [address] Pharmacist Pharmacy 07/11/21 Dope Sprayer Relationship Specialty Start Date End Date Eva Fragoso, Formerly [facility] [address] [place] [address] Pharmacist Pharmacy 07/11/21 Dope Sprayer Relationship Specialty Start Date End Date Eva Fragoso, RPh [address] [place] [address] Pharmacist Pharmacy 07/11/21 Dope Sprayer Relationship Specialty Start Date End Date Eva Fragoso, RPh [address] [place] [address] Pharmacist Pharmacy 07/11/21 Dope Sprayer Relationship Specialty Start Date End Date Eva Fragoso, RPh [address] [place] [address] Pharmacist Pharmacy 07/11/21 Team Status: Active Member Role Status Dates Dr. Benjamin Ramon MD Primary Care Provider Active Team Status: Inactive Member Role Status Dates Dr. Christine VERDUZCO MD Attending Provider Active Start: October 17, 2024 End: October 17, 2024 Team Status: Active Member Role Status Dates Dr. Christine VERDUZCO MD Attending Provider Active Start: October 21, 2024 Team Status: Inactive Member Role Status Dates Dr. Benjamin Ramon MD Primary Care Provider Active Start: January 04, 2025 End: January 04, 2025 JOB COACH/JOB DEVELOPERMar Morales Attending Provider Active Star t: January 04, 2025 End: January 04, 2025 NP. Monalisa Morales Referring Provider Active Star t: January 04, 2025 End: January 04, 2025 Team Status: Inactive Member Role Status Dates Dr. Benjamin Ramon MD Primary Care Provider Active Start: January 20, 2025 End: January 20, 2025 Dr. Christine VERDUZCO MD Attending Provider Active Start: January 20, 2025 End: January 20, 2025 Goals (unrecognized section and content) Goals may be documented in a n alternate sectionGoals may be documented in an alternate section FOR RECORDS PERTAINING TO PATIENTS WHO ARE OR HAVE BEEN ENROLLED IN A CHEMICAL DEPENDENCY/SUBSTANCEABUSE PROGRAM, SOME INFORMATION MAY BE OMITTED. This clinical summary was aggregated from multiple sources. Caution should be exercised in using it in the provision of clinical care. This summary normalizes information from multiple sources, and as a consequence, information in this document may materially change the coding, format and clinical context of patient data. In addition, data may be omitted in some cases. CLINICAL DECISIONS SHOULD BE BASED ON THE PRIMARY CLINICAL RECORDS. [facility] [employer] [facility]. provides no warranty or guarantee of the accuracy or completeness of information in this document.
[2025-04-18 07:25] LABS: Hematocrit 46.3 % (40-54); Hemoglobin 15.8 g/dL (13.0-16.5); Mean Corp Hgb Conc 34.1 g/dL (32-36); Mean Corpuscular Volume 90.1 fL (80-94); Mean Platelet Vol. 9.9 fl (6.2-12.0); Platelet Count 306 K/mm3 (150-450); RBC Distribution Width CV 13.2 % (11.6-14.6); RBC Distribution Width SD 43.1 fl (35.1-43.9); Red Blood Count 5.14 M/mm3 (4.6-6.2); White Blood Count 8.2 K/mm3 (4.4-11.0)
[2025-04-18 08:13] LABS: Anion Gap 12 (5-15); BUN 30 mg/dL (4-19); BUN/Creat Ratio 24.2 RATIO (10-20); Calcium,Total 9.8 mg/dL (7.6-11.0); Carbon Dioxide 21.0 mmol/L (21.0-32.0); Chloride 103 mmol/L (98-108); Glucose 175 mg/dL (70-99); Potassium 4.7 mmol/L (3.3-5.1)
== END ==
LOC: OLS.SW 04:00
PROVIDERS: PCP Family Medicine; Referring Provider Internal Medicine; Visit Provider Internal Medicine
DX: F03.90 Unspecified dementia, unspecified severity, without behavioral disturbance, psychotic disturbance, mood disturbance, and anxiety (principal); E11.9 Type 2 diabetes mellitus without complications; R41.82 Altered mental status, unspecified; I10 Essential (primary) hypertension; E78.5 Hyperlipidemia, unspecified
CPT/HCPCS: 36415; 80048; 83036; 84443; 85027

== ENCOUNTER → 2025-06-13 | Outpatient (REF) | payer MEDICARE, SELFPAY ==
[2025-06-13 08:12] LABS: Hematocrit 43.0 % (40-54); Hemoglobin 14.6 g/dL (13.0-16.5); Mean Corp Hgb Conc 34.0 g/dL (32-36); Mean Corpuscular Volume 90.7 fL (80-94); Mean Platelet Vol. 9.9 fl (6.2-12.0); Platelet Count 283 K/mm3 (150-450); RBC Distribution Width CV 13.2 % (11.6-14.6); RBC Distribution Width SD 44.2 fl (35.1-43.9); Red Blood Count 4.74 M/mm3 (4.6-6.2); White Blood Count 6.2 K/mm3 (4.4-11.0)
[2025-06-13 08:50] LABS: AST(SGOT) 17 U/L (<=37); Alanine Aminotransfer ALT/SGPT 19 U/L (<=46); Albumin, Serum 3.9 g/dL (3.4-4.8); Alkaline Phosphatase 29 U/L (40-129); Anion Gap 12 (5-15); BUN 20 mg/dL (4-19); BUN/Creat Ratio 15.5 RATIO (10-20); Calcium,Total 9.5 mg/dL (7.6-11.0); Carbon Dioxide 21.9 mmol/L (21.0-32.0); Chloride 103 mmol/L (98-108); Cholesterol 132 mg/dL (<=200); Globulin 2.6 g/dL (2.2-4.2); Glucose 130 mg/dL (70-99); Low Density Lipoprotein Calc. 63 mg/dL; Potassium 4.6 mmol/L (3.3-5.1); Triglycerides 223 mg/dL; Very Low Density Lipoprotein 45 mg/dL (5-40); Vitamin B12 905 pg/mL (180-914); Vitamin D,25 Hydroxy 52.3 ng/mL (30-100); cholesterol:hdl ratio screen 5.34
== END ==
LOC: OLS.SW 04:00
PROVIDERS: PCP Family Medicine; Referring Provider Internal Medicine; Visit Provider Internal Medicine
DX: E11.9 Type 2 diabetes mellitus without complications (principal); I10 Essential (primary) hypertension; E78.5 Hyperlipidemia, unspecified; E55.9 Vitamin D deficiency, unspecified; D51.8 Other vitamin B12 deficiency anemias
CPT/HCPCS: 36415; 80053; 80061; 82306; 82607; 83036; 85027